=== PATIENT | female | born 1930 ===

== ENCOUNTER 2018-09-17 10:19 | Inpatient (IN) | payer MEDICARE ==
--- NOTE | 2018-09-17 10:43 | ED PDOC ---
Arrival/HPI - General Chief Complaint: Altered Mental Status Time Seen by Provider: 09/17/18 10:21 Historian: Spouse (), Family (daughter) - Critical Care Critical Care Minutes: 60 minutes Narrative Critical Care (Text): Patient critically ill, required frequent reassessments, complex decision making, discussion with multiple physicians. - History of Present Illness Narrative History of Present Illness (Text): 09/17/18 10:43 A 88 year old female, whose past medical history includes Alzheimer's, presents to the emergency department accompanied by family for altered mental status since earlier today. Per patient's family, patient was given ensure and fluids for the past 15 days and patient vomited twice. Per patient's daughter, patient was unresponsive to verbal stimuli earlier this morning and patient has not taken any medication today. ROS is limited due to patient's altered mental status. PMD: Dr. Jim Patterson Time/Duration: 4-6 hours (earlier today) Symptom Onset: Gradual Symptom Course: Unchanged Activities at Onset: Light Context: Home Past Medical History - Provider Review Nursing Documentation Reviewed: Yes - Infectious Disease Hx of Infectious Diseases: None - Tetanus Immunization Tetanus Immunization: Unknown - Cardiac Hx Pacemaker: No - Neurological Hx Alzheimer's Disease: Yes Hx Paralysis: No - Hematological/Oncological Hx Blood Transfusions: No Hx Blood Transfusion Reaction: No - Musculoskeletal/Rheumatological Hx Musculoskeletal Disorders: Yes - Gastrointestinal Hx Crohn's Disease: Yes - Psychiatric Hx Emotional Abuse: No Hx Physical Abuse: No Hx Substance Use: No - Surgical History Other/Comment: colon sx in 8 yrs ago - Anesthesia Hx Anesthesia: Yes Hx Anesthesia Reactions: No Hx Malignant Hyperthermia: No - Suicidal Assessment Feels Threatened In Home Enviroment: No Family/Social History - Physician Review Nursing Documentation Reviewed: Yes Family/Social History: No Known Family HX Smoking Status: Never Smoked Hx Alcohol Use: No Hx Substance Use: No Hx Substance Use Treatment: No Allergies/Home Meds Allergies/Adverse Reactions: Allergies No Known Allergies Allergy (Verified 09/17/18 10:28) Home Medications: Home Meds Medication Instructions Recorded Confirmed No Known Home Med 09/17/18 09/17/18 Review of Systems - Review of Systems Systems not reviewed;Unavailable: Altered Mental Status Physical Exam - Physical Exam Narrative Physical Exam (Text): 09/17/18 10:45 Constitutional: No acute distress. Head: Normocephalic. Atraumatic. Eyes: Left eye reactive to light. Right pupil deformity. ENT: Moist mucous membranes. Cardiovascular: Tachycardic. Chest: No tenderness. Respiratory: Clear to auscultation bilaterally. Tachypnic. 91 on room air. GI: Soft. Nontender. Nondistended. Musculoskeletal: No tenderness or swelling of extremities. Skin: No rash. Neurologic: Unresponsive to verbal stimuli. Grimaces to touch. Moving extremities spontaneously. Vital Signs Reviewed: Yes Vital Signs Temp Pulse Resp BP Pulse Ox 09/17/18 10:23 99.2 F 105 H 17 152/56 H 95 Temperature: Afebrile Blood Pressure: Hypertensive Pulse: Tachycardic Respiratory Rate: Tachypneic Appearance: Positive for: Ill-Appearing Pain Distress: None Mental Status: Positive for: Lethargic Finger Stick Blood Glucose: 128 Medical Decision Making ED Course and Treatment: 09/17/18 10:47 Impression: 88 year old female presenting to the emergency room for altered mental status. Plan: -- Type and screen -- VBG -- Head CT without contrast -- EKG -- Labs -- CBC -- COAGs -- Chest X-ray -- IV Fluids -- Blood culture -- Urine culture -- Urinalysis -- Reassess and disposition Prior Visits: Notes and results from previous visits were reviewed. Progress Notes: 09/17/18 10:47 EKG: Ordered, reviewed, and independently interpreted the EKG. Rate : 107 BPM Rhythm : Sinus Rhythm Interpretation : No ST-segment elevations or depressions, normal intervals. 09/17/18 11:34 Procedure: Chest X-ray Impression: No active disease. Dictator: Simon Redd MD Procedure: CT Head without contrast Impression: No acute hemorrhage. Dictator: David Pinzon MD UA shows UTI. Patient became hypotensive while in ED, 2 L NS given with improvement. Antibiotics empirically initiated. Discussed CODE STATUS with and daughter at bedside who state that patient would not have wanted these aggressive treatments and would want to in peace. They were agreeable to central line access if necessary. Dr. Jim Patterson accepts patient to his service. Dr. Mcrae accepts patient to ICU. 09/17/18 13:40 - Scribe Statement The provider has reviewed the documentation as recorded by the Scribmaninder Macias All medical record entries made by the Scribe were at my direction and personally dictated by me. I have reviewed the chart and agree that the record accurately reflects my personal performance of the history, physical exam, medical decision making, and the department course for this patient. I have also personally directed, reviewed, and agree with the discharge instructions and disposition. Disposition/Present on Arrival - Present on Arrival Any Indicators Present on Arrival: No History of DVT/PE: No History of Uncontrolled Diabetes: No Urinary Catheter: No History of Decub. Ulcer: No History Surgical Site Infection Following: None - Disposition Have Diagnosis and Disposition been Completed?: Yes Diagnosis: UTI (urinary tract infection), Septic shock Disposition: HOSPITALIZED Disposition Time: 13:00 Patient Plan: ICU Condition: CRITICAL
[2018-09-17] MEDS ORDERED: Sodium Chloride 0.9% 1,000 ML IV STA (10:50)
[2018-09-17 11:15] LABS: BASO # 0.04 K/mm3 (0.0-2.0); BASO % 0.2 % (0.0-3.0); EOS # 0.1 (0.0-0.7); EOS % 0.4 % (1.5-5.0); GRAN # 14.06 (1.4-6.5); GRAN % 77.4 % (50.0-68.0); HEMOGLOBIN 10.1 g/dL (12.0-16.0); LYMPH # 2.9 (1.2-3.4); LYMPH % 16.1 % (22.0-35.0); MEAN CELL VOLUME 94.3 fl (80.0-105.0); MEAN CORPUSCULAR HEMOGLOBIN 27.3 pg (25.0-35.0); MEAN CORPUSCULAR HGB CONC 28.9 g/dl (31.0-37.0); MEAN PLATELET VOLUME 10.1 fl (7.0-11.0); MONO # 1.1 (0.1-0.6); MONO % 5.9 % (1.0-6.0); RBC 3.7 10^6/uL (3.5-6.1); RED CELL DISTRIBUTION WIDTH 16.8 % (11.5-14.5); WHITE BLOOD COUNT 18.2 10^3/uL (4.5-11.0)
[2018-09-17 11:16] VITALS: BMI 21.2
[2018-09-17] MEDS ORDERED: Cefepime 1gm in NS 100ml 1 GM/100 ML BAG IVPB STA (11:18)
[2018-09-17 11:27] LABS: INR 1.23; PROTHROMBIN TIME 14.2 SECONDS (9.4-12.5)
--- NOTE | 2018-09-17 11:28 | RAD ---
Date of service: 09/17/2018 HISTORY: altered mental status, hypoxic COMPARISON: 02/08/2013 FINDINGS: LUNGS: No active pulmonary disease. PLEURA: No significant pleural effusion identified, no pneumothorax apparent. CARDIOVASCULAR: Aortic calcification and tortuosity. Normal cardiac size. No pulmonary vascular congestion. OSSEOUS STRUCTURES: No significant abnormalities. VISUALIZED UPPER ABDOMEN: Normal. OTHER FINDINGS: None. IMPRESSION: No active disease.
--- NOTE | 2018-09-17 11:30 | CT ---
Date of service: 09/17/2018 PROCEDURE: CT HEAD WITHOUT CONTRAST. HISTORY: altered mental status COMPARISON: None available. TECHNIQUE: Axial computed tomography images were obtained through the head/brain without intravenous contrast. Radiation dose: Total exam DLP = 652.67 mGy-cm. This CT exam was performed using one or more of the following dose reduction techniques: Automated exposure control, adjustment of the mA and/or kV according to patient size, and/or use of iterative reconstruction technique. FINDINGS: HEMORRHAGE: No intracranial hemorrhage. BRAIN: No mass effect or edema. Atrophy. VENTRICLES: Unremarkable. No hydrocephalus. CALVARIUM: Unremarkable. PARANASAL SINUSES: Unremarkable as visualized. No significant inflammatory changes. MASTOID AIR CELLS: Unremarkable as visualized. No inflammatory changes. OTHER FINDINGS: None. IMPRESSION: No acute hemorrhage.
[2018-09-17 11:38] LABS: TROPONIN I 0.04 ng/mL
[2018-09-17 11:42] LABS: ALB/GLOB RATIO 0.7 (1.1-1.8); ALBUMIN 2.9 g/dL (3.0-4.8); CALCIUM 9.6 mg/dL (8.4-10.5)
[2018-09-17 11:52] LABS: PARTIAL THROMBOPLASTIN TIME 20.2 Seconds (25.1-36.5)
[2018-09-17] MEDS ORDERED: Vancomycin 1gm in NS 250ml 1 GM/250 ML BAG IVPB STA (12:00)
[2018-09-17] MEDS ORDERED: Sodium Chloride 0.9% 2,000 ML IV STA (12:01)
[2018-09-17 12:05] LABS: VENOUS BLOOD GAS BASE EXCESS 2.8 mmol/L (0.0-2.0); VENOUS BLOOD GAS PO2 39 mm/Hg (30-55); VENOUS BLOOD PH 7.39 (7.32-7.43)
[2018-09-17 12:59] LABS: URINE APPEARANCE CLOUDY (CLEAR); URINE BILIRUBIN NEGATIVE (NEGATIVE); URINE BLOOD LARGE (NEGATIVE); URINE COLOR LIGHT RED (YELLOW); URINE GLUCOSE (UA) NEGATIVE (NEGATIVE); URINE LEUKOCYTE ESTERASE LARGE Leu/uL (NEGATIVE); URINE PROTEIN 30 mg/dL (<30 mg/dL)
[2018-09-17 13:02] LABS: URINE RBC TNTC /hpf (0-2); URINE WBC TNTC /hpf (0-6)
[2018-09-17 13:03] LABS: URINE BACTERIA MANY (NEG)
--- NOTE | 2018-09-17 13:44 | CP.PCM.CON ---
<New Clemons - Last Filed: 09/17/18 13:56> History of Present Illness - History of Present Illness History of Present Illness: New Clemons D.O. 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 Daughter states that patient has been declining over last 1-2 months, used to be ambulatory but now has been bed bound. Daughter became concerned when patient stopped wanting to eat and drink last few days and this morning the patient would not even say good morning which is why she became worried. Of note, daughter states that about 9 months ago they took her to the supervisor mechanic [facility] for vaginal bleeding and she was found to have an endometrial mass, however no further biopsy or surgery was pursued give her non-compliance and benefits vs risk that family reviewed with her physicians. Overall patient at this time is non-verbal and unable to provide any history or ROS. at bedside corroborates above details. PMH: as above PSH: right eye surgery SH: family denies EtOH, tobacco or illicits FH: noncontributory Meds: denied by family Allergies: NKA Review of Systems - Review of Systems Systems not reviewed;Unavailable: Dementia Past Patient History - Infectious Disease Hx of Infectious Diseases: None - Tetanus Immunizations Tetanus Immunization: Unknown - Past Social History Smoking Status: Never Smoked - CARDIAC Hx Pacemaker: No - NEUROLOGICAL Hx Alzheimer's Disease: Yes Hx Paralysis: No - HEMATOLOGICAL/ONCOLOGICAL Hx Blood Transfusions: No Hx Blood Transfusion Reaction: No - MUSCULOSKELETAL/RHEUMATOLOGICAL Hx Musculoskeletal Disorders: Yes - GASTROINTESTINAL Hx Crohn's Disease: Yes - PSYCHIATRIC Hx Emotional Abuse: No Hx Physical Abuse: No Hx Substance Use: No - SURGICAL HISTORY Other/Comment: colon sx in 8 yrs ago - ANESTHESIA Hx Anesthesia: Yes Hx Anesthesia Reactions: No Hx Malignant Hyperthermia: No Meds Allergies/Adverse Reactions: Allergies Allergy/AdvReac Type Severity Reaction Status Date / Time No Known Allergies Allergy Verified 09/17/18 10:28 - Medications Medications: Current Medications Sodium Chloride (Sodium Chloride 0.9%) 1,000 mls @ 100 mls/hr IV .Q10H STA Stop: 09/17/18 20:49 Last Admin: 09/17/18 12:05 Dose: Not Given Cefepime HCl (Maxipime 1gm) 1 gm in 100 mls @ 100 mls/hr IVPB Q24H BIRD; Protocol Vancomycin HCl (Vancomycin 1gm) 1 gm in 250 mls @ 167 mls/hr IVPB DAILY BIRD; Protocol Physical Exam - Constitutional Appears: No Acute Distress, Cachectic, Chronically Ill Additional comments: physical exam limited by patient unable to comply with some instructions - Head Exam Head Exam: ATRAUMATIC, NORMOCEPHALIC - Eye Exam Additional comments: right eye closed and blind 2/2 trauma years ago, left eye reactive to light, unable to follow commands for extraocular muscle examination - ENT Exam ENT Exam: Mucous Membranes Dry, Normal Oropharynx Additional comments: upper dentures, poor dentition - Neck Exam Neck exam: Positive for: Normal Inspection. Negative for: Lymphadenopathy - Respiratory Exam Respiratory Exam: Clear to Auscultation Bilateral. absent: Rales, Rhonchi, Wheezes - Cardiovascular Exam Cardiovascular Exam: Tachycardia, +S1, +S2. absent: Gallop, Rubs - GI/Abdominal Exam GI & Abdominal Exam: Normal Bowel Sounds, Soft. absent: Distended, Tenderness - Extremities Exam Extremities exam: Positive for: normal capillary refill, pedal pulses present. Negative for: calf tenderness, joint swelling, pedal edema Additional comments: left heel stage 2 pressure ulcer, clean based, dressing in place - Back Exam Back exam: absent: rash noted - Neurological Exam Additional comments: awake, not alert, nonverbal, moves all extremities spontaneously, left eye reactive to light, did follow very simple command in [place] ("open your mouth") - Skin Skin Exam: Dry, Warm Additional comments: bilateral stage 2 posterior sacral iliac spine/ischial ulcers Results - Vital Signs Recent Vital Signs: Last Vital Signs Temp 96.9 F L 09/17/18 12:43 Pulse 97 H 09/17/18 13:20 Resp 29 H 09/17/18 13:20 BP 89/50 L 09/17/18 13:20 Pulse Ox 99 09/17/18 13:20 - Labs Result Diagrams: 09/17/18 10:57 09/17/18 10:57 Labs: Laboratory Results - last 24 hr 11/16/18 11/16/18 11/16/18 10:57 10:57 10:57 WBC 18.2 H RBC 3.70 Hgb 10.1 L Hct 34.9 L MCV 94.3 MCH 27.3 MCHC 28.9 L RDW 16.8 H Plt Count 269 MPV 10.1 Gran % 77.4 H Lymph % (Auto) 16.1 L [place] % (Auto) 5.9 Eos % (Auto) 0.4 L Baso % (Auto) 0.2 Gran # 14.06 H Lymph # (Auto) 2.9 [place] # (Auto) 1.1 H Eos # (Auto) 0.1 Baso # (Auto) 0.04 PT 14.2 H INR 1.23 APTT 20.2 L pO2 VBG pH VBG pCO2 VBG HCO3 VBG Total CO2 VBG O2 Sat (Calc) VBG Base Excess VBG Potassium Glucose Lactate FiO2 Sodium 159 H* Potassium 3.7 Chloride 120 H Carbon Dioxide 30 Anion Gap 12 BUN 109 H Creatinine 1.3 H Est GFR ( Amer) 47 Est GFR (Non-Af Amer) 39 Random Glucose 146 H Calcium 9.6 Phosphorus 5.0 H Magnesium 4.0 H Total Bilirubin 0.8 AST 48 H ALT 66 H Alkaline Phosphatase 201 H Total Creatine Kinase 100 Troponin I 0.04 NT-Pro-B Natriuret Pep 1880 H Total Protein 6.9 Albumin 2.9 L Globulin 4.0 Albumin/Globulin Ratio 0.7 L Lipase 282 Venous Blood Potassium Urine Color Urine Appearance Urine pH Ur Specific [place] Urine Protein Urine Glucose (UA) Urine Ketones Urine Blood Urine Nitrate Urine Bilirubin Urine Urobilinogen Ur Leukocyte Esterase Urine RBC Urine WBC Ur Epithelial Cells Urine Bacteria Blood Type Antibody Screen BBK History Checked 09/17/18 09/17/18 09/17/18 10:57 11:51 12:50 WBC RBC Hgb Hct MCV MCH MCHC RDW Plt Count MPV Gran % Lymph % (Auto) [place] % (Auto) Eos % (Auto) Baso % (Auto) Gran # Lymph # (Auto) [place] # (Auto) Eos # (Auto) Baso # (Auto) PT INR APTT pO2 39 VBG pH 7.39 VBG pCO2 47.0 VBG HCO3 28.5 H VBG Total CO2 29.9 H VBG O2 Sat (Calc) 70.8 H VBG Base Excess 2.8 H VBG Potassium 3.9 Glucose 143 H Lactate 2.9 H FiO2 21.0 Sodium 161.0 H* Potassium Chloride 123.0 H Carbon Dioxide Anion Gap BUN Creatinine Est GFR ( Amer) Est GFR (Non-Af Amer) Random Glucose Calcium Phosphorus Magnesium Total Bilirubin AST ALT Alkaline Phosphatase Total Creatine Kinase Troponin I NT-Pro-B Natriuret Pep Total Protein Albumin Globulin Albumin/Globulin Ratio Lipase Venous Blood Potassium 3.9 Urine Color Light red Urine Appearance Cloudy Urine pH 8.0 Ur Specific [place] 1.015 Urine Protein 30 H Urine Glucose (UA) Negative Urine Ketones Negative Urine Blood Large H Urine Nitrate Positive H Urine Bilirubin Negative Urine Urobilinogen 1.0 H Ur Leukocyte Esterase Large H Urine RBC Tntc Urine WBC Tntc Ur Epithelial Cells 4 - 5 Urine Bacteria Many Blood Type O POSITIVE Antibody Screen Negative BBK History Checked No verified bt Assessment & Plan - Assessment and Plan (Free Text) Assessment: 88 year old female with a PMH of Alzheimer's disease, 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, heel and ischial pressure ulcers, and endometrial mass who is found to have sepsis likely from urinary source Plan: Neurologic Very minimally verbal at baseline due to underlying dementia however overall nonfocal Optimize circadian rhythm Monitor mental status closely Cardiovascular Hypotensive and tachycardic, mixture of sepsis and dehydration S/p 3L NS with some improvement Repeat CBC Maintain MAP >65 Will monitor BP closely Pulmonary Satting well with NC Cont PRN NC @ 2L O2 Aspiration precautions GI NPO for now given clinical condition No indication for GI ppx at this time Nephro/Electrolytes Hypernatremia likely 2/2 severe dehydration S/p 3L NS Given borderline low normal potassium will continue hydration with NS +60mEq KCl @ 75ml/hr Repeat CMP this afternoon Purewick from home had some blood likely vaginal source, will place hsieh for now and then downgrade when clinically improved ID Sepsis with 3/4, hypothermic, leukocytosis and tachycardia, and +lactate Likely urinary source given UA Urine and blood cultures drawn Started on cefepime and vancomycin D1 Repeat VBG in 3 hours Wounds appear clean and not infected, wound care consulted, turn q2h S/p fluid bolus Heme Leukocytosis 2/2 infection Minor vaginal bleeding but does not appear to be significant to be causing hypotension vs sepsis as above Repeat CBC later in the afternoon and tomorrow AM GI/DVT ppx: GI not indicated/SCDs Dispo: poor functional state with now sepsis and possible septic shock, will admit and monitor in ICU at this time. DNR/DNI discussion by ER attending reveals family does not want aggressive measures. Will obtain palliative care consult to discuss goals of care, although they are amenable to central line and pressors if necessary. Patient was seen and examined at bedside and case was discussed at length with attending literacy specialist Dr. Mcrae - Date & Time Date: 09/17/18 Time: 13:10 <Sheridan Mcrae - Last Filed: 09/17/18 14:28> Meds - Medications Medications: Current Medications Sodium Chloride (Sodium Chloride 0.9%) 1,000 mls @ 100 mls/hr IV .Q10H STA Stop: 09/17/18 20:49 Last Admin: 09/17/18 12:05 Dose: Not Given Cefepime HCl (Maxipime 1gm) 1 gm in 100 mls @ 100 mls/hr IVPB Q24H BIRD; Protocol Vancomycin HCl (Vancomycin 1gm) 1 gm in 250 mls @ 167 mls/hr IVPB DAILY BIRD; Protocol Potassium Chloride 60 meq/ (Sodium Chloride) 1,030 mls @ 75 mls/hr IV .[id number] BIRD Results - Vital Signs Recent Vital Signs: Last Vital Signs Temp 96.9 F L 09/17/18 13:46 Pulse 99 H 09/17/18 13:46 Resp 22 09/17/18 13:46 BP 89/50 L 09/17/18 13:20 Pulse Ox 98 09/17/18 13:46 - Labs Result Diagrams: 09/17/18 10:57 09/17/18 10:57 Labs: Laboratory Results - last 24 hr 09/17/18 09/17/18 09/17/18 10:57 10:57 10:57 WBC 18.2 H RBC 3.70 Hgb 10.1 L Hct 34.9 L MCV 94.3 MCH 27.3 MCHC 28.9 L RDW 16.8 H Plt Count 269 MPV 10.1 Gran % 77.4 H Lymph % (Auto) 16.1 L [place] % (Auto) 5.9 Eos % (Auto) 0.4 L Baso % (Auto) 0.2 Gran # 14.06 H Lymph # (Auto) 2.9 [place] # (Auto) 1.1 H Eos # (Auto) 0.1 Baso # (Auto) 0.04 PT 14.2 H INR 1.23 APTT 20.2 L pO2 VBG pH VBG pCO2 VBG HCO3 VBG Total CO2 VBG O2 Sat (Calc) VBG Base Excess VBG Potassium Glucose Lactate FiO2 Sodium 159 H* Potassium 3.7 Chloride 120 H Carbon Dioxide 30 Anion Gap 12 BUN 109 H Creatinine 1.3 H Est GFR ( Amer) 47 Est GFR (Non-Af Amer) 39 Random Glucose 146 H Calcium 9.6 Phosphorus 5.0 H Magnesium 4.0 H Total Bilirubin 0.8 AST 48 H ALT 66 H Alkaline Phosphatase 201 H Total Creatine Kinase 100 Troponin I 0.04 NT-Pro-B Natriuret Pep 1880 H Total Protein 6.9 Albumin 2.9 L Globulin 4.0 Albumin/Globulin Ratio 0.7 L Lipase 282 Venous Blood Potassium Urine Color Urine Appearance Urine pH Ur Specific [place] Urine Protein Urine Glucose (UA) Urine Ketones Urine Blood Urine Nitrate Urine Bilirubin Urine Urobilinogen Ur Leukocyte Esterase Urine RBC Urine WBC Ur Epithelial Cells Urine Bacteria Blood Type Antibody Screen BBK History Checked 09/17/18 09/17/18 09/17/18 10:57 11:51 12:50 WBC RBC Hgb Hct MCV MCH MCHC RDW Plt Count MPV Gran % Lymph % (Auto) [place] % (Auto) Eos % (Auto) Baso % (Auto) Gran # Lymph # (Auto) [place] # (Auto) Eos # (Auto) Baso # (Auto) PT INR APTT pO2 39 VBG pH 7.39 VBG pCO2 47.0 VBG HCO3 28.5 H VBG Total CO2 29.9 H VBG O2 Sat (Calc) 70.8 H VBG Base Excess 2.8 H VBG Potassium 3.9 Glucose 143 H Lactate 2.9 H FiO2 21.0 Sodium 161.0 H* Potassium Chloride 123.0 H Carbon Dioxide Anion Gap BUN Creatinine Est GFR ( Amer) Est GFR (Non-Af Amer) Random Glucose Calcium Phosphorus Magnesium Total Bilirubin AST ALT Alkaline Phosphatase Total Creatine Kinase Troponin I NT-Pro-B Natriuret Pep Total Protein Albumin Globulin Albumin/Globulin Ratio Lipase Venous Blood Potassium 3.9 Urine Color Light red Urine Appearance Cloudy Urine pH 8.0 Ur Specific [place] 1.015 Urine Protein 30 H Urine Glucose (UA) Negative Urine Ketones Negative Urine Blood Large H Urine Nitrate Positive H Urine Bilirubin Negative Urine Urobilinogen 1.0 H Ur Leukocyte Esterase Large H Urine RBC Tntc Urine WBC Tntc Ur Epithelial Cells 4 - 5 Urine Bacteria Many Blood Type O POSITIVE Antibody Screen Negative BBK History Checked No verified bt Addendum Addendum: 09/17/18 14:28 ICU Attending Addendum Patient seen and examined. Case reviewed on round with housestaff. 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 Source is likely urine however there is a component of dehydration given her elevated sodium and bicarb Will give at least 30cc/kg of IVF if sodium incr will change to 1/2NS Ok to give addition 1 L on top for cover free water deificit repeat labs including chem and lac empiric abx with vanc/cefepime Pal care consult for goal of care DNR/DNI Rest of care as above Sheridan Mcrae MD Pulmonary Critical Care and Sleep Medicine CC Time: 30mins
[2018-09-17 15:53] LABS: BASO # 0.02 K/mm3 (0.0-2.0); BASO % 0.1 % (0.0-3.0); EOS % 0.1 % (1.5-5.0); GRAN # 14.37 (1.4-6.5); GRAN % 83.5 % (50.0-68.0); HEMOGLOBIN 9.5 g/dL (12.0-16.0); LYMPH # 1.5 (1.2-3.4); LYMPH % 8.7 % (22.0-35.0); MEAN CELL VOLUME 94.7 fl (80.0-105.0); MEAN CORPUSCULAR HEMOGLOBIN 26.7 pg (25.0-35.0); MEAN CORPUSCULAR HGB CONC 28.2 g/dl (31.0-37.0); MEAN PLATELET VOLUME 9.5 fl (7.0-11.0); MONO # 1.3 (0.1-0.6); MONO % 7.6 % (1.0-6.0); RBC 3.56 10^6/uL (3.5-6.1); RED CELL DISTRIBUTION WIDTH 16.7 % (11.5-14.5); WHITE BLOOD COUNT 17.2 10^3/uL (4.5-11.0)
[2018-09-17 16:02] LABS: VENOUS BLOOD GAS PO2 30 mm/Hg (30-55); VENOUS BLOOD PH 7.36 (7.32-7.43)
[2018-09-17 16:12] LABS: ALB/GLOB RATIO 0.7 (1.1-1.8); ALBUMIN 2.7 g/dL (3.0-4.8); ALT/SGPT 61 U/L (7-56); AST/SGOT 45 U/L (14-36); BLOOD UREA NITROGEN 94 mg/dL (7-21); CALCIUM 8.7 mg/dL (8.4-10.5); GFR NON-AFRICAN AMERICAN 52
[2018-09-17] MEDS ORDERED: Dextrose 5%/0.45% NS 1,000 ML IV SCH (16:45)
--- NOTE | 2018-09-17 16:47 | PCM.SEPTIC ---
Sepsis Progress Note - Reassessment Type Date of Evaluation: 09/17/18 Time of Evaluation: 04:30 Reassessment Type: Non-invasive reassessment - Non Invasive Reassessment Were the most recent vital sign reviewed: Yes Vital Sign (Latest): Temp Pulse Resp BP Pulse Ox 96.9 F L 99 H 22 89/50 L 98 09/17/18 13:46 09/17/18 13:46 09/17/18 13:46 09/17/18 13:20 09/17/18 13:46 Cardiovascular: Yes: Regular Rate, Rhythm. No: Chest Non Tender, Edema, JVD Respiratory: Yes: Normal Breath Sounds. No: Crackles, Rales, Rhonchi, Stridor, Wheezing Capillary Refill: Normal (Less than 2 sec) Pulses: Normal Radial, Normal Dorsalis Pedis, Normal Posterior Tibialis Skin: Normal Color - Invasive Reassessment (complete 2 of 4) Was a Central Venous Pressure Measurement obtained within 6 Hours after the presentation of septic shock: No Was a central venous oxygen measurement obtained within 6 hours after the presentation of septic shock: No Was a bedside cardiovascular ultrasound performed within 6 hours after the presentation of septic shock: Yes Type performed: Echocardiogram Was a passive leg raise performed or was a fluid challenge performed within 6 hrs of the initial fluid bolus: Yes Passive Leg Raise Result: Not Applicable Fluid Challenge performed: Yes
[2018-09-17] MEDS ORDERED: Sodium Chloride 0.9% 500 ML IV STA ×2 (19:32→20:43)
--- NOTE | 2018-09-17 19:45 | CARD ---
APPROVED REPORT Date of service: 09/17/2018 EKG Measurement Heart [id number] <Conclusion> Sinus tachycardia with premature atrial complexes Otherwise normal ECG
[2018-09-17] MEDS ORDERED: NOREPINEPHRINE BIT/0.9 % NACL 4 MG/250 ML BAG IV PRN (22:42)
[2018-09-18 05:21] LABS: BASO # 0.02 K/mm3 (0.0-2.0); BASO % 0.1 % (0.0-3.0); EOS # 0.2 (0.0-0.7); EOS % 1.1 % (1.5-5.0); GRAN # 11.92 (1.4-6.5); GRAN % 81.5 % (50.0-68.0); HEMOGLOBIN 8.2 g/dL (12.0-16.0); LYMPH # 1.6 (1.2-3.4); LYMPH % 10.9 % (22.0-35.0); MEAN CORPUSCULAR HEMOGLOBIN 27.1 pg (25.0-35.0); MEAN CORPUSCULAR HGB CONC 28.2 g/dl (31.0-37.0); MEAN PLATELET VOLUME 9.4 fl (7.0-11.0); MONO # 0.9 (0.1-0.6); MONO % 6.4 % (1.0-6.0); RBC 3.03 10^6/uL (3.5-6.1); RED CELL DISTRIBUTION WIDTH 16.8 % (11.5-14.5); WHITE BLOOD COUNT 14.6 10^3/uL (4.5-11.0)
[2018-09-18 06:24] LABS: ALB/GLOB RATIO 0.7 (1.1-1.8); ALBUMIN 2.3 g/dL (3.0-4.8); ALT/SGPT 47 U/L (7-56); AST/SGOT 35 U/L (14-36); BLOOD UREA NITROGEN 68 mg/dL (7-21); CALCIUM 8.4 mg/dL (8.4-10.5); GFR NON-AFRICAN AMERICAN > 60
[2018-09-18] MEDS ORDERED: Dextrose 5%/0.45% NS 1,000 ML IV SCH (09:30)
[2018-09-18] MEDS: Cefepime 1gm in NS 100ml 1 GM/100 ML BAG IVPB SCH (09:33)
[2018-09-18] MEDS: Vancomycin 1gm in NS 250ml 1 GM/250 ML BAG IVPB SCH (09:33)
--- NOTE | 2018-09-18 09:49 | CP.CCUPN ---
<Luis Alfredo Jacobs - Last Filed: 09/18/18 11:53> CCU Subjective - Physician Review Subjective (Free Text): 09/18/18 09:46 Patient seen and examined at bedside. As per overnight staff patient was not responsive. Patient initially brought into hospital due to change in mental status, as per daughter patient wasn't saying good morning. I saw and examined patient this morning, patient was responsive when her name was called. She then replied asking " why am I here?" Patient's family then came and patient is able to answer questions and responds to daughter. ROS still limited. CCU Objective - Vital Signs / Intake & Output Vital Signs (Last 4 hours): Vital Signs Temp Pulse Resp BP Pulse Ox 09/18/18 08:42 80 23 09/18/18 08:41 73 09/18/18 08:40 80 18 82 L 09/18/18 08:35 78 15 09/18/18 08:34 80 36 H 09/18/18 08:33 77 28 H 09/18/18 08:32 82 23 09/18/18 08:31 76 28 H 18 08:30 77 19 09/18/18 08:29 71 31 H 09/18/18 08:28 81 32 H 09/18/18 08:27 78 22 09/18/18 08:26 76 44 H 18 08:25 77 09/18/18 08:24 76 26 H 09/18/18 08:23 76 23 09/18/18 08:22 84 20 09/18/18 08:21 78 40 H 09/18/18 08:20 78 09/18/18 08:19 81 25 H 18 08:18 81 21 09/18/18 08:17 79 24 09/18/18 08:16 78 33 H 09/18/18 08:15 83 15 09/18/18 08:14 76 09/18/18 08:13 79 36 H 18 08:12 81 17 18 08:11 80 22 09/18/18 08:10 81 18 09/18/18 08:09 72 25 H 09/18/18 08:08 79 22 09/18/18 08:07 81 23 09/18/18 08:06 81 16 09/18/18 08:05 80 30 H 09/18/18 08:04 79 26 H 09/18/18 08:03 87 24 09/18/18 08:02 76 11 L 09/18/18 08:01 74 24 09/18/18 08:00 97.1 F L 92/47 L 09/18/18 07:59 78 38 H 69 L 09/18/18 07:50 79 24 83 L 09/18/18 07:44 84 15 09/18/18 07:43 80 31 H 09/18/18 07:42 78 25 H 09/18/18 07:41 83 31 H 09/18/18 07:40 78 44 H 09/18/18 07:39 81 30 H 09/18/18 07:38 76 32 H 09/18/18 07:37 76 30 H 09/18/18 07:36 84 19 09/18/18 07:00 75 09/18/18 06:00 77 Intake and Output (Last 8hrs): Intake & Output 09/17/18 09/18/18 09/18/18 22:59 06:59 14:59 Intake Total 1610 1050 Output Total 100 350 Balance 1510 700 Weight 52.617 kg 45.904 kg Intake: IV 1610 1050 Left Forearm 1600 900 Right Forearm 10 150 Oral 0 Output: Urine 100 350 Urethral (Adams) 100 350 Other: # Bowel Movements 1 1 - Physical Exam Head: Positive for: Atraumatic, Normocephalic Extroacular Muscles: Negative for: EOMI Conjunctiva: Positive for: Normal Mouth: Positive for: Moist Mucous Membranes Respiratory/Chest: Positive for: Clear to Auscultation. Negative for: Wheezes, Rales, Rhonchi Cardiovascular: Positive for: Regular Rate and Rhythm, Normal S1, S2 Abdomen: Negative for: Tenderness Upper Extremity: Positive for: Normal Inspection Lower Extremity: Positive for: Normal Inspection Neurological: Negative for: Speech Normal Skin: Positive for: Warm, Normal Color Psychiatric: Positive for: Alert. Negative for: Oriented x 3 - Medications Active Medications: Active Medications Generic Name Dose Route Start Last Admin Trade Name Freq PRN Reason Stop Dose Admin Cefepime HCl 1 gm in 100 mls @ 100 mls/hr 09/18/18 10:00 09/18/18 09:33 Maxipime 1gm IVPB 100 mls/hr Q24H BIRD Administration Protocol Vancomycin HCl 1 gm in 250 mls @ 167 mls/hr 09/18/18 10:00 09/18/18 09:33 Vancomycin 1gm IVPB 167 mls/hr DAILY BIRD Administration Protocol Potassium Chloride 60 meq/ 1,030 mls @ 75 mls/hr 09/17/18 16:45 09/17/18 16:50 Sodium Chloride IV 75 mls/hr .[id number] BIRD Administration NOREPINEPHRINE BIT/0.9 % NACL 4 mg in 250 mls @ 15 mls/hr 09/17/18 22:42 Levophed 4 Mg/ 250 Ml Ns Premixed IV .[id number] PRN TITRATE PER MD ORDER Protocol 4 MCG/MIN - Patient Studies Lab Studies: Lab Studies 09/18/18 09/18/18 09/17/18 Range/Units 05:00 05:00 15:53 WBC 14.6 H (4.5-11.0) 10^3/uL RBC 3.03 L (3.5-6.1) 10^6/uL Hgb 8.2 L (12.0-16.0) g/dL Hct 29.1 L (36.0-48.0) % MCV 96.0 (80.0-105.0) fl MCH 27.1 (25.0-35.0) pg MCHC 28.2 L (31.0-37.0) g/dl RDW 16.8 H (11.5-14.5) % Plt Count 149 (120.0-450.0) 10^3/uL MPV 9.4 (7.0-11.0) fl Gran % 81.5 H (50.0-68.0) % Lymph % (Auto) 10.9 L (22.0-35.0) % [place] % (Auto) 6.4 H (1.0-6.0) % Eos % (Auto) 1.1 L (1.5-5.0) % Baso % (Auto) 0.1 (0.0-3.0) % Gran # 11.92 H (1.4-6.5) Lymph # (Auto) 1.6 (1.2-3.4) [place] # (Auto) 0.9 H (0.1-0.6) Eos # (Auto) 0.2 (0.0-0.7) Baso # (Auto) 0.02 (0.0-2.0) K/mm3 PT (9.4-12.5) SECONDS INR APTT (25.1-36.5) Seconds pO2 (30-55) mm/Hg VBG pH (7.32-7.43) VBG pCO2 (40-60) VBG HCO3 (21-28) mmol/l VBG Total CO2 (22-28) mmol.L VBG O2 Sat (Calc) (40-65) % VBG Base Excess (0.0-2.0) mmol/L VBG Potassium (3.6-5.2) mmol/L Glucose (65-105) mg/dl Lactate (0.7-2.1) mmol/L FiO2 % Sodium 160 H* 160 H* (132-148) mmol/L Potassium 4.5 3.1 L (3.6-5.0) mmol/L Chloride 133 H 126 H (98-107) mmol/L Carbon Dioxide 24 26 (21-33) mmol/L Anion Gap 7 L 11 (10-20) BUN 68 H 94 H (7-21) mg/dL Creatinine 0.8 1.0 (0.7-1.2) mg/dl Est GFR ( Amer) > 60 > 60 Est GFR (Non-Af Amer) > 60 52 Random Glucose 103 155 H (70-110) mg/dL Calcium 8.4 8.7 (8.4-10.5) mg/dL Phosphorus 3.3 4.1 (2.5-4.5) mg/dL Magnesium 3.0 H 3.5 H (1.7-2.2) mg/dL Total Bilirubin 0.7 0.7 (0.2-1.3) mg/dL AST 35 45 H (14-36) U/L ALT 47 61 H (7-56) U/L Alkaline Phosphatase 132 H D 171 H (38-126) U/L Total Creatine Kinase (35-230) U/L Troponin I ng/mL NT-Pro-B Natriuret Pep (0-450) pg/mL Total Protein 5.6 L 6.5 (5.8-8.3) g/dL Albumin 2.3 L 2.7 L (3.0-4.8) g/dL Globulin 3.3 3.8 gm/dL Albumin/Globulin Ratio 0.7 L 0.7 L (1.1-1.8) Lipase (23-300) U/L Venous Blood Potassium (3.6-5.2) mmol/L Urine Color (YELLOW) Urine Appearance (CLEAR) Urine pH (4.7-8.0) Ur Specific [place] (1.005-1.035) Urine Protein (<30 mg/dL) mg/dL Urine Glucose (UA) (NEGATIVE) mg/dL Urine Ketones (NEGATIVE) mg/dL Urine Blood (NEGATIVE) Urine Nitrate (NEGATIVE) Urine Bilirubin (NEGATIVE) Urine Urobilinogen (<1 E.U./dL) E.U./dL Ur Leukocyte Esterase (NEGATIVE) Jay/uL Urine RBC (0-2) /hpf Urine WBC (0-6) /hpf Ur Epithelial Cells (0-5) /hpf Urine Bacteria (NEG) Blood Type Blood Type Confirm Antibody Screen BBK History Checked 09/17/18 09/17/18 09/17/18 Range/Units 15:53 15:53 15:53 WBC 17.2 H (4.5-11.0) 10^3/uL RBC 3.56 (3.5-6.1) 10^6/uL Hgb 9.5 L (12.0-16.0) g/dL Hct 33.7 L (36.0-48.0) % MCV 94.7 (80.0-105.0) fl MCH 26.7 (25.0-35.0) pg MCHC 28.2 L (31.0-37.0) g/dl RDW 16.7 H (11.5-14.5) % Plt Count 216 (120.0-450.0) 10^3/uL MPV 9.5 (7.0-11.0) fl Gran % 83.5 H (50.0-68.0) % Lymph % (Auto) 8.7 L (22.0-35.0) % [place] % (Auto) 7.6 H (1.0-6.0) % Eos % (Auto) 0.1 L (1.5-5.0) % Baso % (Auto) 0.1 (0.0-3.0) % Gran # 14.37 H (1.4-6.5) Lymph # (Auto) 1.5 (1.2-3.4) [place] # (Auto) 1.3 H (0.1-0.6) Eos # (Auto) 0.0 (0.0-0.7) Baso # (Auto) 0.02 (0.0-2.0) K/mm3 PT (9.4-12.5) SECONDS INR APTT (25.1-36.5) Seconds pO2 30 (30-55) mm/Hg VBG pH 7.36 (7.32-7.43) VBG pCO2 48.0 (40-60) VBG HCO3 27.1 (21-28) mmol/l VBG Total CO2 28.6 H (22-28) mmol.L VBG O2 Sat (Calc) 49.6 (40-65) % VBG Base Excess 1.0 (0.0-2.0) mmol/L VBG Potassium 3.0 L (3.6-5.2) mmol/L Glucose 161 H (65-105) mg/dl Lactate 2.9 H (0.7-2.1) mmol/L FiO2 21.0 % Sodium 163.0 H* (132-148) mmol/L Potassium (3.6-5.0) mmol/L Chloride 127.0 H (98-107) mmol/L Carbon Dioxide (21-33) mmol/L Anion Gap (10-20) BUN (7-21) mg/dL Creatinine (0.7-1.2) mg/dl Est GFR ( Amer) Est GFR (Non-Af Amer) Random Glucose (70-110) mg/dL Calcium (8.4-10.5) mg/dL Phosphorus (2.5-4.5) mg/dL Magnesium (1.7-2.2) mg/dL Total Bilirubin (0.2-1.3) mg/dL AST (14-36) U/L ALT (7-56) U/L Alkaline Phosphatase (38-126) U/L Total Creatine Kinase (35-230) U/L Troponin I ng/mL NT-Pro-B Natriuret Pep (0-450) pg/mL Total Protein (5.8-8.3) g/dL Albumin (3.0-4.8) g/dL Globulin gm/dL Albumin/Globulin Ratio (1.1-1.8) Lipase (23-300) U/L Venous Blood Potassium 3.0 L (3.6-5.2) mmol/L Urine Color (YELLOW) Urine Appearance (CLEAR) Urine pH (4.7-8.0) Ur Specific [place] (1.005-1.035) Urine Protein (<30 mg/dL) mg/dL Urine Glucose (UA) (NEGATIVE) mg/dL Urine Ketones (NEGATIVE) mg/dL Urine Blood (NEGATIVE) Urine Nitrate (NEGATIVE) Urine Bilirubin (NEGATIVE) Urine Urobilinogen (<1 E.U./dL) E.U./dL Ur Leukocyte Esterase (NEGATIVE) Jay/uL Urine RBC (0-2) /hpf Urine WBC (0-6) /hpf Ur Epithelial Cells (0-5) /hpf Urine Bacteria (NEG) Blood Type Blood Type Confirm O POSITIVE Antibody Screen BBK History Checked 09/17/18 09/17/18 09/17/18 Range/Units 12:50 11:51 10:57 WBC (4.5-11.0) 10^3/uL RBC (3.5-6.1) 10^6/uL Hgb (12.0-16.0) g/dL Hct (36.0-48.0) % MCV (80.0-105.0) fl MCH (25.0-35.0) pg MCHC (31.0-37.0) g/dl RDW (11.5-14.5) % Plt Count (120.0-450.0) 10^3/uL MPV (7.0-11.0) fl Gran % (50.0-68.0) % Lymph % (Auto) (22.0-35.0) % [place] % (Auto) (1.0-6.0) % Eos % (Auto) (1.5-5.0) % Baso % (Auto) (0.0-3.0) % Gran # (1.4-6.5) Lymph # (Auto) (1.2-3.4) [place] # (Auto) (0.1-0.6) Eos # (Auto) (0.0-0.7) Baso # (Auto) (0.0-2.0) K/mm3 PT (9.4-12.5) SECONDS INR APTT (25.1-36.5) Seconds pO2 39 (30-55) mm/Hg VBG pH 7.39 (7.32-7.43) VBG pCO2 47.0 (40-60) VBG HCO3 28.5 H (21-28) mmol/l VBG Total CO2 29.9 H (22-28) mmol.L VBG O2 Sat (Calc) 70.8 H (40-65) % VBG Base Excess 2.8 H (0.0-2.0) mmol/L VBG Potassium 3.9 (3.6-5.2) mmol/L Glucose 143 H (65-105) mg/dl Lactate 2.9 H (0.7-2.1) mmol/L FiO2 21.0 % Sodium 161.0 H* (132-148) mmol/L Potassium (3.6-5.0) mmol/L Chloride 123.0 H (98-107) mmol/L Carbon Dioxide (21-33) mmol/L Anion Gap (10-20) BUN (7-21) mg/dL Creatinine (0.7-1.2) mg/dl Est GFR ( Amer) Est GFR (Non-Af Amer) Random Glucose (70-110) mg/dL Calcium (8.4-10.5) mg/dL Phosphorus (2.5-4.5) mg/dL Magnesium (1.7-2.2) mg/dL Total Bilirubin (0.2-1.3) mg/dL AST (14-36) U/L ALT (7-56) U/L Alkaline Phosphatase (38-126) U/L Total Creatine Kinase (35-230) U/L Troponin I ng/mL NT-Pro-B Natriuret Pep (0-450) pg/mL Total Protein (5.8-8.3) g/dL Albumin (3.0-4.8) g/dL Globulin gm/dL Albumin/Globulin Ratio (1.1-1.8) Lipase (23-300) U/L Venous Blood Potassium 3.9 (3.6-5.2) mmol/L Urine Color Light red (YELLOW) Urine Appearance Cloudy (CLEAR) Urine pH 8.0 (4.7-8.0) Ur Specific [place] 1.015 (1.005-1.035) Urine Protein 30 H (<30 mg/dL) mg/dL Urine Glucose (UA) Negative (NEGATIVE) mg/dL Urine Ketones Negative (NEGATIVE) mg/dL Urine Blood Large H (NEGATIVE) Urine Nitrate Positive H (NEGATIVE) Urine Bilirubin Negative (NEGATIVE) Urine Urobilinogen 1.0 H (<1 E.U./dL) E.U./dL Ur Leukocyte Esterase Large H (NEGATIVE) Jay/uL Urine RBC Tntc (0-2) /hpf Urine WBC Tntc (0-6) /hpf Ur Epithelial Cells 4 - 5 (0-5) /hpf Urine Bacteria Many (NEG) Blood Type O POSITIVE Blood Type Confirm Antibody Screen Negative BBK History Checked No verified bt 09/17/18 09/17/18 09/17/18 Range/Units 10:57 10:57 10:57 WBC 18.2 H (4.5-11.0) 10^3/uL RBC 3.70 (3.5-6.1) 10^6/uL Hgb 10.1 L (12.0-16.0) g/dL Hct 34.9 L (36.0-48.0) % MCV 94.3 (80.0-105.0) fl MCH 27.3 (25.0-35.0) pg MCHC 28.9 L (31.0-37.0) g/dl RDW 16.8 H (11.5-14.5) % Plt Count 269 (120.0-450.0) 10^3/uL MPV 10.1 (7.0-11.0) fl Gran % 77.4 H (50.0-68.0) % Lymph % (Auto) 16.1 L (22.0-35.0) % [place] % (Auto) 5.9 (1.0-6.0) % Eos % (Auto) 0.4 L (1.5-5.0) % Baso % (Auto) 0.2 (0.0-3.0) % Gran # 14.06 H (1.4-6.5) Lymph # (Auto) 2.9 (1.2-3.4) [place] # (Auto) 1.1 H (0.1-0.6) Eos # (Auto) 0.1 (0.0-0.7) Baso # (Auto) 0.04 (0.0-2.0) K/mm3 PT 14.2 H (9.4-12.5) SECONDS INR 1.23 APTT 20.2 L (25.1-36.5) Seconds pO2 (30-55) mm/Hg VBG pH (7.32-7.43) VBG pCO2 (40-60) VBG HCO3 (21-28) mmol/l VBG Total CO2 (22-28) mmol.L VBG O2 Sat (Calc) (40-65) % VBG Base Excess (0.0-2.0) mmol/L VBG Potassium (3.6-5.2) mmol/L Glucose (65-105) mg/dl Lactate (0.7-2.1) mmol/L FiO2 % Sodium 159 H* (132-148) mmol/L Potassium 3.7 (3.6-5.0) mmol/L Chloride 120 H (98-107) mmol/L Carbon Dioxide 30 (21-33) mmol/L Anion Gap 12 (10-20) BUN 109 H (7-21) mg/dL Creatinine 1.3 H (0.7-1.2) mg/dl Est GFR ( Amer) 47 Est GFR (Non-Af Amer) 39 Random Glucose 146 H (70-110) mg/dL Calcium 9.6 (8.4-10.5) mg/dL Phosphorus 5.0 H (2.5-4.5) mg/dL Magnesium 4.0 H (1.7-2.2) mg/dL Total Bilirubin 0.8 (0.2-1.3) mg/dL AST 48 H (14-36) U/L ALT 66 H (7-56) U/L Alkaline Phosphatase 201 H (38-126) U/L Total Creatine Kinase 100 (35-230) U/L Troponin I 0.04 ng/mL NT-Pro-B Natriuret Pep 1880 H (0-450) pg/mL Total Protein 6.9 (5.8-8.3) g/dL Albumin 2.9 L (3.0-4.8) g/dL Globulin 4.0 gm/dL Albumin/Globulin Ratio 0.7 L (1.1-1.8) Lipase 282 (23-300) U/L Venous Blood Potassium (3.6-5.2) mmol/L Urine Color (YELLOW) Urine Appearance (CLEAR) Urine pH (4.7-8.0) Ur Specific [place] (1.005-1.035) Urine Protein (<30 mg/dL) mg/dL Urine Glucose (UA) (NEGATIVE) mg/dL Urine Ketones (NEGATIVE) mg/dL Urine Blood (NEGATIVE) Urine Nitrate (NEGATIVE) Urine Bilirubin (NEGATIVE) Urine Urobilinogen (<1 E.U./dL) E.U./dL Ur Leukocyte Esterase (NEGATIVE) Jay/uL Urine RBC (0-2) /hpf Urine WBC (0-6) /hpf Ur Epithelial Cells (0-5) /hpf Urine Bacteria (NEG) Blood Type Blood Type Confirm Antibody Screen BBK History Checked Laboratory Results - last 24 hr 09/17/18 09/17/18 09/17/18 10:57 10:57 10:57 WBC 18.2 H RBC 3.70 Hgb 10.1 L Hct 34.9 L MCV 94.3 MCH 27.3 MCHC 28.9 L RDW 16.8 H Plt Count 269 MPV 10.1 Gran % 77.4 H Lymph % (Auto) 16.1 L [place] % (Auto) 5.9 Eos % (Auto) 0.4 L Baso % (Auto) 0.2 Gran # 14.06 H Lymph # (Auto) 2.9 [place] # (Auto) 1.1 H Eos # (Auto) 0.1 Baso # (Auto) 0.04 PT 14.2 H INR 1.23 APTT 20.2 L pO2 VBG pH VBG pCO2 VBG HCO3 VBG Total CO2 VBG O2 Sat (Calc) VBG Base Excess VBG Potassium Glucose Lactate FiO2 Sodium 159 H* Potassium 3.7 Chloride 120 H Carbon Dioxide 30 Anion Gap 12 BUN 109 H Creatinine 1.3 H Est GFR ( Amer) 47 Est GFR (Non-Af Amer) 39 Random Glucose 146 H Calcium 9.6 Phosphorus 5.0 H Magnesium 4.0 H Total Bilirubin 0.8 AST 48 H ALT 66 H Alkaline Phosphatase 201 H Total Creatine Kinase 100 Troponin I 0.04 NT-Pro-B Natriuret Pep 1880 H Total Protein 6.9 Albumin 2.9 L Globulin 4.0 Albumin/Globulin Ratio 0.7 L Lipase 282 Venous Blood Potassium Urine Color Urine Appearance Urine pH Ur Specific [place] Urine Protein Urine Glucose (UA) Urine Ketones Urine Blood Urine Nitrate Urine Bilirubin Urine Urobilinogen Ur Leukocyte Esterase Urine RBC Urine WBC Ur Epithelial Cells Urine Bacteria Blood Type Blood Type Confirm Antibody Screen BBK History Checked 09/17/18 09/17/18 09/17/18 10:57 11:51 12:50 WBC RBC Hgb Hct MCV MCH MCHC RDW Plt Count MPV Gran % Lymph % (Auto) [place] % (Auto) Eos % (Auto) Baso % (Auto) Gran # Lymph # (Auto) [place] # (Auto) Eos # (Auto) Baso # (Auto) PT INR APTT pO2 39 VBG pH 7.39 VBG pCO2 47.0 VBG HCO3 28.5 H VBG Total CO2 29.9 H VBG O2 Sat (Calc) 70.8 H VBG Base Excess 2.8 H VBG Potassium 3.9 Glucose 143 H Lactate 2.9 H FiO2 21.0 Sodium 161.0 H* Potassium Chloride 123.0 H Carbon Dioxide Anion Gap BUN Creatinine Est GFR ( Amer) Est GFR (Non-Af Amer) Random Glucose Calcium Phosphorus Magnesium Total Bilirubin AST ALT Alkaline Phosphatase Total Creatine Kinase Troponin I NT-Pro-B Natriuret Pep Total Protein Albumin Globulin Albumin/Globulin Ratio Lipase Venous Blood Potassium 3.9 Urine Color Light red Urine Appearance Cloudy Urine pH 8.0 Ur Specific [place] 1.015 Urine Protein 30 H Urine Glucose (UA) Negative Urine Ketones Negative Urine Blood Large H Urine Nitrate Positive H Urine Bilirubin Negative Urine Urobilinogen 1.0 H Ur Leukocyte Esterase Large H Urine RBC Tntc Urine WBC Tntc Ur Epithelial Cells 4 - 5 Urine Bacteria Many Blood Type O POSITIVE Blood Type Confirm Antibody Screen Negative BBK History Checked No verified bt 09/17/18 09/17/18 09/17/18 15:53 15:53 15:53 WBC 17.2 H RBC 3.56 Hgb 9.5 L Hct 33.7 L MCV 94.7 MCH 26.7 MCHC 28.2 L RDW 16.7 H Plt Count 216 MPV 9.5 Gran % 83.5 H Lymph % (Auto) 8.7 L [place] % (Auto) 7.6 H Eos % (Auto) 0.1 L Baso % (Auto) 0.1 Gran # 14.37 H Lymph # (Auto) 1.5 [place] # (Auto) 1.3 H Eos # (Auto) 0.0 Baso # (Auto) 0.02 PT INR APTT pO2 30 VBG pH 7.36 VBG pCO2 48.0 VBG HCO3 27.1 VBG Total CO2 28.6 H VBG O2 Sat (Calc) 49.6 VBG Base Excess 1.0 VBG Potassium 3.0 L Glucose 161 H Lactate 2.9 H FiO2 21.0 Sodium 163.0 H* Potassium Chloride 127.0 H Carbon Dioxide Anion Gap BUN Creatinine Est GFR ( Amer) Est GFR (Non-Af Amer) Random Glucose Calcium Phosphorus Magnesium Total Bilirubin AST ALT Alkaline Phosphatase Total Creatine Kinase Troponin I NT-Pro-B Natriuret Pep Total Protein Albumin Globulin Albumin/Globulin Ratio Lipase Venous Blood Potassium 3.0 L Urine Color Urine Appearance Urine pH Ur Specific [place] Urine Protein Urine Glucose (UA) Urine Ketones Urine Blood Urine Nitrate Urine Bilirubin Urine Urobilinogen Ur Leukocyte Esterase Urine RBC Urine WBC Ur Epithelial Cells Urine Bacteria Blood Type Blood Type Confirm O POSITIVE Antibody Screen BBK History Checked 09/17/18 09/18/18 09/18/18 15:53 05:00 05:00 WBC 14.6 H RBC 3.03 L Hgb 8.2 L Hct 29.1 L MCV 96.0 MCH 27.1 MCHC 28.2 L RDW 16.8 H Plt Count 149 MPV 9.4 Gran % 81.5 H Lymph % (Auto) 10.9 L [place] % (Auto) 6.4 H Eos % (Auto) 1.1 L Baso % (Auto) 0.1 Gran # 11.92 H Lymph # (Auto) 1.6 [place] # (Auto) 0.9 H Eos # (Auto) 0.2 Baso # (Auto) 0.02 PT INR APTT pO2 VBG pH VBG pCO2 VBG HCO3 VBG Total CO2 VBG O2 Sat (Calc) VBG Base Excess VBG Potassium Glucose Lactate FiO2 Sodium 160 H* 160 H* Potassium 3.1 L 4.5 Chloride 126 H 133 H Carbon Dioxide 26 24 Anion Gap 11 7 L BUN 94 H 68 H Creatinine 1.0 0.8 Est GFR ( Amer) > 60 > 60 Est GFR (Non-Af Amer) 52 > 60 Random Glucose 155 H 103 Calcium 8.7 8.4 Phosphorus 4.1 3.3 Magnesium 3.5 H 3.0 H Total Bilirubin 0.7 0.7 AST 45 H 35 ALT 61 H 47 Alkaline Phosphatase 171 H 132 H D Total Creatine Kinase Troponin I NT-Pro-B Natriuret Pep Total Protein 6.5 5.6 L Albumin 2.7 L 2.3 L Globulin 3.8 3.3 Albumin/Globulin Ratio 0.7 L 0.7 L Lipase Venous Blood Potassium Urine Color Urine Appearance Urine pH Ur Specific [place] Urine Protein Urine Glucose (UA) Urine Ketones Urine Blood Urine Nitrate Urine Bilirubin Urine Urobilinogen Ur Leukocyte Esterase Urine RBC Urine WBC Ur Epithelial Cells Urine Bacteria Blood Type Blood Type Confirm Antibody Screen BBK History Checked EKG/Cardiology Studies: Cardiology / EKG Studies 09/17/18 10:25 EKG [ELECTROCARDIOGRAM] Stat Comment: Reason For Exam: AMS Fingerstick Blood Sugar Results: 128 Review of Systems - Review of Systems Review of Systems: Limited, patient is not mentally altered however is still just beginning to communicate Assessment/Plan - Assessment and Plan (Free Text) Assessment: Patient is a 88 F with a history of alzheimer's disease, 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 Plan: Neuro -Alert and awake; mentla status improving -CT head negative for ICH Cardiovascular -Maintain MAP >60 -Keep normotensive Pulmonary -Maintain o2 sat >92% Heme -Monitor BP; currently stable -Heparin and SCDs for DVT prophylaxis Dermatological -Heel and decubitus ulcerations; bactroban ointment -Wound care consulted Infectious Disease -Continue with Cefepime and Vancomycin Day #1 -Urine and blood cultures pending -Leukocytosis improving, afebrile Renal -Hypernatremia; will switch from 1/2 NS to D5W@ 200 for first liter, then @75 for maintenance -Will repeat BMP this afternoon -Maintain normal electrolytes <McraeBilal - Last Filed: 09/18/18 12:27> CCU Objective - Vital Signs / Intake & Output Vital Signs (Last 4 hours): Vital Signs Pulse Resp Pulse Ox 09/18/18 08:42 80 23 09/18/18 08:41 73 09/18/18 08:40 80 18 82 L 09/18/18 08:35 78 15 09/18/18 08:34 80 36 H 09/18/18 08:33 77 28 H 09/18/18 08:32 82 23 09/18/18 08:31 76 28 H 09/18/18 08:30 77 19 09/18/18 08:29 71 31 H 09/18/18 08:28 81 32 H 09/18/18 08:27 78 22 09/18/18 08:26 76 44 H 09/18/18 08:25 77 09/18/18 08:24 76 26 H 09/18/18 08:23 76 23 09/18/18 08:22 84 20 09/18/18 08:21 78 40 H 09/18/18 08:20 78 09/18/18 08:19 81 25 H 09/18/18 08:18 81 21 09/18/18 08:17 79 24 09/18/18 08:16 78 33 H Intake and Output (Last 8hrs): Intake & Output 09/17/18 09/18/18 09/18/18 22:59 06:59 14:59 Intake Total 1610 1050 Output Total 100 350 Balance 1510 700 Weight 52.617 kg 45.904 kg Intake: IV 1610 1050 Left Forearm 1600 900 Right Forearm 10 150 Oral 0 Output: Urine 100 350 Urethral (Adams) 100 350 Other: # Bowel Movements 1 1 - Medications Active Medications: Active Medications Generic Name Dose Route Start Last Admin Trade Name Freq PRN Reason Stop Dose Admin Heparin Sodium (Porcine) 5,000 units 09/18/18 14:00 Heparin SC Q8 BIRD Protocol Cefepime HCl 1 gm in 100 mls @ 100 mls/hr 09/18/18 10:00 09/18/18 09:33 Maxipime 1gm IVPB 100 mls/hr Q24H BIRD Administration Protocol Vancomycin HCl 1 gm in 250 mls @ 167 mls/hr 09/18/18 10:00 09/18/18 09:33 Vancomycin 1gm IVPB 167 mls/hr DAILY BIRD Administration Protocol Potassium Chloride 60 meq/ 1,030 mls @ 75 mls/hr 09/17/18 16:45 09/17/18 16:50 Sodium Chloride IV 75 mls/hr .[id number] BIRD Administration NOREPINEPHRINE BIT/0.9 % NACL 4 mg in 250 mls @ 15 mls/hr 09/17/18 22:42 Levophed 4 Mg/ 250 Ml Ns Premixed IV .[id number] PRN TITRATE PER MD ORDER Protocol 4 MCG/MIN Dextrose 1,000 mls @ 200 mls/hr 09/18/18 11:55 Dextrose 5% In Water 1000 Ml IV 09/18/18 16:54 .Q5H STA Dextrose 1,000 mls @ 75 mls/hr 09/18/18 12:00 Dextrose 5% In Water 1000 Ml IV .[id number] BIRD Mupirocin 1 gm 09/18/18 11:45 Bactroban Ointment TOP BID BIRD - Patient Studies Lab Studies: Microbiology Studies 09/17/18 11:51 Blood Culture - Preliminary Blood-Venous NO GROWTH AFTER 24 HOURS 09/17/18 10:57 Blood Culture - Preliminary Blood-Venous NO GROWTH AFTER 24 HOURS Lab Studies 09/18/18 09/18/18 09/17/18 Range/Units 05:00 05:00 15:53 WBC 14.6 H (4.5-11.0) 10^3/uL RBC 3.03 L (3.5-6.1) 10^6/uL Hgb 8.2 L (12.0-16.0) g/dL Hct 29.1 L (36.0-48.0) % MCV 96.0 (80.0-105.0) fl MCH 27.1 (25.0-35.0) pg MCHC 28.2 L (31.0-37.0) g/dl RDW 16.8 H (11.5-14.5) % Plt Count 149 (120.0-450.0) 10^3/uL MPV 9.4 (7.0-11.0) fl Gran % 81.5 H (50.0-68.0) % Lymph % (Auto) 10.9 L (22.0-35.0) % [place] % (Auto) 6.4 H (1.0-6.0) % Eos % (Auto) 1.1 L (1.5-5.0) % Baso % (Auto) 0.1 (0.0-3.0) % Gran # 11.92 H (1.4-6.5) Lymph # (Auto) 1.6 (1.2-3.4) [place]pson # (Auto) 0.9 H (0.1-0.6) Eos # (Auto) 0.2 (0.0-0.7) Baso # (Auto) 0.02 (0.0-2.0) K/mm3 pO2 (30-55) mm/Hg VBG pH (7.32-7.43) VBG pCO2 (40-60) VBG HCO3 (21-28) mmol/l VBG Total CO2 (22-28) mmol.L VBG O2 Sat (Calc) (40-65) % VBG Base Excess (0.0-2.0) mmol/L VBG Potassium (3.6-5.2) mmol/L Sodium 160 H* 160 H* (132-148) mmol/L Chloride 133 H 126 H (98-107) mmol/L Glucose (65-105) mg/dl Lactate (0.7-2.1) mmol/L FiO2 % Potassium 4.5 3.1 L (3.6-5.0) mmol/L Carbon Dioxide 24 26 (21-33) mmol/L Anion Gap 7 L 11 (10-20) BUN 68 H 94 H (7-21) mg/dL Creatinine 0.8 1.0 (0.7-1.2) mg/dl Est GFR ( Amer) > 60 > 60 Est GFR (Non-Af Amer) > 60 52 Random Glucose 103 155 H (70-110) mg/dL Calcium 8.4 8.7 (8.4-10.5) mg/dL Phosphorus 3.3 4.1 (2.5-4.5) mg/dL Magnesium 3.0 H 3.5 H (1.7-2.2) mg/dL Total Bilirubin 0.7 0.7 (0.2-1.3) mg/dL AST 35 45 H (14-36) U/L ALT 47 61 H (7-56) U/L Alkaline Phosphatase 132 H D 171 H (38-126) U/L Total Protein 5.6 L 6.5 (5.8-8.3) g/dL Albumin 2.3 L 2.7 L (3.0-4.8) g/dL Globulin 3.3 3.8 gm/dL Albumin/Globulin Ratio 0.7 L 0.7 L (1.1-1.8) Venous Blood Potassium (3.6-5.2) mmol/L Urine Color (YELLOW) Urine Appearance (CLEAR) Urine pH (4.7-8.0) Ur Specific [place] (1.005-1.035) Urine Protein (<30 mg/dL) mg/dL Urine Glucose (UA) (NEGATIVE) mg/dL Urine Ketones (NEGATIVE) mg/dL Urine Blood (NEGATIVE) Urine Nitrate (NEGATIVE) Urine Bilirubin (NEGATIVE) Urine Urobilinogen (<1 E.U./dL) E.U./dL Ur Leukocyte Esterase (NEGATIVE) Jay/uL Urine RBC (0-2) /hpf Urine WBC (0-6) /hpf Ur Epithelial Cells (0-5) /hpf Urine Bacteria (NEG) Blood Type Confirm 09/17/18 09/17/18 09/17/18 Range/Units 15:53 15:53 15:53 WBC 17.2 H (4.5-11.0) 10^3/uL RBC 3.56 (3.5-6.1) 10^6/uL Hgb 9.5 L (12.0-16.0) g/dL Hct 33.7 L (36.0-48.0) % MCV 94.7 (80.0-105.0) fl MCH 26.7 (25.0-35.0) pg MCHC 28.2 L (31.0-37.0) g/dl RDW 16.7 H (11.5-14.5) % Plt Count 216 (120.0-450.0) 10^3/uL MPV 9.5 (7.0-11.0) fl Gran % 83.5 H (50.0-68.0) % Lymph % (Auto) 8.7 L (22.0-35.0) % [place]pson % (Auto) 7.6 H (1.0-6.0) % Eos % (Auto) 0.1 L (1.5-5.0) % Baso % (Auto) 0.1 (0.0-3.0) % Gran # 14.37 H (1.4-6.5) Lymph # (Auto) 1.5 (1.2-3.4) [place] # (Auto) 1.3 H (0.1-0.6) Eos # (Auto) 0.0 (0.0-0.7) Baso # (Auto) 0.02 (0.0-2.0) K/mm3 pO2 30 (30-55) mm/Hg VBG pH 7.36 (7.32-7.43) VBG pCO2 48.0 (40-60) VBG HCO3 27.1 (21-28) mmol/l VBG Total CO2 28.6 H (22-28) mmol.L VBG O2 Sat (Calc) 49.6 (40-65) % VBG Base Excess 1.0 (0.0-2.0) mmol/L VBG Potassium 3.0 L (3.6-5.2) mmol/L Sodium 163.0 H* (132-148) mmol/L Chloride 127.0 H (98-107) mmol/L Glucose 161 H (65-105) mg/dl Lactate 2.9 H (0.7-2.1) mmol/L FiO2 21.0 % Potassium (3.6-5.0) mmol/L Carbon Dioxide (21-33) mmol/L Anion Gap (10-20) BUN (7-21) mg/dL Creatinine (0.7-1.2) mg/dl Est GFR ( Amer) Est GFR (Non-Af Amer) Random Glucose (70-110) mg/dL Calcium (8.4-10.5) mg/dL Phosphorus (2.5-4.5) mg/dL Magnesium (1.7-2.2) mg/dL Total Bilirubin (0.2-1.3) mg/dL AST (14-36) U/L ALT (7-56) U/L Alkaline Phosphatase (38-126) U/L Total Protein (5.8-8.3) g/dL Albumin (3.0-4.8) g/dL Globulin gm/dL Albumin/Globulin Ratio (1.1-1.8) Venous Blood Potassium 3.0 L (3.6-5.2) mmol/L Urine Color (YELLOW) Urine Appearance (CLEAR) Urine pH (4.7-8.0) Ur Specific [place] (1.005-1.035) Urine Protein (<30 mg/dL) mg/dL Urine Glucose (UA) (NEGATIVE) mg/dL Urine Ketones (NEGATIVE) mg/dL Urine Blood (NEGATIVE) Urine Nitrate (NEGATIVE) Urine Bilirubin (NEGATIVE) Urine Urobilinogen (<1 E.U./dL) E.U./dL Ur Leukocyte Esterase (NEGATIVE) Jay/uL Urine RBC (0-2) /hpf Urine WBC (0-6) /hpf Ur Epithelial Cells (0-5) /hpf Urine Bacteria (NEG) Blood Type Confirm O POSITIVE 09/17/18 09/17/18 Range/Units 12:50 11:51 WBC (4.5-11.0) 10^3/uL RBC (3.5-6.1) 10^6/uL Hgb (12.0-16.0) g/dL Hct (36.0-48.0) % MCV (80.0-105.0) fl MCH (25.0-35.0) pg MCHC (31.0-37.0) g/dl RDW (11.5-14.5) % Plt Count (120.0-450.0) 10^3/uL MPV (7.0-11.0) fl Gran % (50.0-68.0) % Lymph % (Auto) (22.0-35.0) % Upson % (Auto) (1.0-6.0) % Eos % (Auto) (1.5-5.0) % Baso % (Auto) (0.0-3.0) % Gran # (1.4-6.5) Lymph # (Auto) (1.2-3.4) Upson # (Auto) (0.1-0.6) Eos # (Auto) (0.0-0.7) Baso # (Auto) (0.0-2.0) K/mm3 pO2 39 (30-55) mm/Hg VBG pH 7.39 (7.32-7.43) VBG pCO2 47.0 (40-60) VBG HCO3 28.5 H (21-28) mmol/l VBG Total CO2 29.9 H (22-28) mmol.L VBG O2 Sat (Calc) 70.8 H (40-65) % VBG Base Excess 2.8 H (0.0-2.0) mmol/L VBG Potassium 3.9 (3.6-5.2) mmol/L Sodium 161.0 H* (132-148) mmol/L Chloride 123.0 H (98-107) mmol/L Glucose 143 H (65-105) mg/dl Lactate 2.9 H (0.7-2.1) mmol/L FiO2 21.0 % Potassium (3.6-5.0) mmol/L Carbon Dioxide (21-33) mmol/L Anion Gap (10-20) BUN (7-21) mg/dL Creatinine (0.7-1.2) mg/dl Est GFR ( Amer) Est GFR (Non-Af Amer) Random Glucose (70-110) mg/dL Calcium (8.4-10.5) mg/dL Phosphorus (2.5-4.5) mg/dL Magnesium (1.7-2.2) mg/dL Total Bilirubin (0.2-1.3) mg/dL AST (14-36) U/L ALT (7-56) U/L Alkaline Phosphatase (38-126) U/L Total Protein (5.8-8.3) g/dL Albumin (3.0-4.8) g/dL Globulin gm/dL Albumin/Globulin Ratio (1.1-1.8) Venous Blood Potassium 3.9 (3.6-5.2) mmol/L Urine Color Light red (YELLOW) Urine Appearance Cloudy (CLEAR) Urine pH 8.0 (4.7-8.0) Ur Specific [place] 1.015 (1.005-1.035) Urine Protein 30 H (<30 mg/dL) mg/dL Urine Glucose (UA) Negative (NEGATIVE) mg/dL Urine Ketones Negative (NEGATIVE) mg/dL Urine Blood Large H (NEGATIVE) Urine Nitrate Positive H (NEGATIVE) Urine Bilirubin Negative (NEGATIVE) Urine Urobilinogen 1.0 H (<1 E.U./dL) E.U./dL Ur Leukocyte Esterase Large H (NEGATIVE) Jay/uL Urine RBC Tntc (0-2) /hpf Urine WBC Tntc (0-6) /hpf Ur Epithelial Cells 4 - 5 (0-5) /hpf Urine Bacteria Many (NEG) Blood Type Confirm Laboratory Results - last 24 hr 09/17/18 09/17/18 09/17/18 11:51 12:50 15:53 WBC RBC Hgb Hct MCV MCH MCHC RDW Plt Count MPV Gran % Lymph % (Auto) Upson % (Auto) Eos % (Auto) Baso % (Auto) Gran # Lymph # (Auto) Upson # (Auto) Eos # (Auto) Baso # (Auto) pO2 39 VBG pH 7.39 VBG pCO2 47.0 VBG HCO3 28.5 H VBG Total CO2 29.9 H VBG O2 Sat (Calc) 70.8 H VBG Base Excess 2.8 H VBG Potassium 3.9 Sodium 161.0 H* Chloride 123.0 H Glucose 143 H Lactate 2.9 H FiO2 21.0 Potassium Carbon Dioxide Anion Gap BUN Creatinine Est GFR ( Amer) Est GFR (Non-Af Amer) Random Glucose Calcium Phosphorus Magnesium Total Bilirubin AST ALT Alkaline Phosphatase Total Protein Albumin Globulin Albumin/Globulin Ratio Venous Blood Potassium 3.9 Urine Color Light red Urine Appearance Cloudy Urine pH 8.0 Ur Specific [place] 1.015 Urine Protein 30 H Urine Glucose (UA) Negative Urine Ketones Negative Urine Blood Large H Urine Nitrate Positive H Urine Bilirubin Negative Urine Urobilinogen 1.0 H Ur Leukocyte Esterase Large H Urine RBC Tntc Urine WBC Tntc Ur Epithelial Cells 4 - 5 Urine Bacteria Many Blood Type Confirm O POSITIVE 09/17/18 09/17/18 09/17/18 15:53 15:53 15:53 WBC 17.2 H RBC 3.56 Hgb 9.5 L Hct 33.7 L MCV 94.7 MCH 26.7 MCHC 28.2 L RDW 16.7 H Plt Count 216 MPV 9.5 Gran % 83.5 H Lymph % (Auto) 8.7 L Upson % (Auto) 7.6 H Eos % (Auto) 0.1 L Baso % (Auto) 0.1 Gran # 14.37 H Lymph # (Auto) 1.5 Upson # (Auto) 1.3 H Eos # (Auto) 0.0 Baso # (Auto) 0.02 pO2 30 VBG pH 7.36 VBG pCO2 48.0 VBG HCO3 27.1 VBG Total CO2 28.6 H VBG O2 Sat (Calc) 49.6 VBG Base Excess 1.0 VBG Potassium 3.0 L Sodium 163.0 H* 160 H* Chloride 127.0 H 126 H Glucose 161 H Lactate 2.9 H FiO2 21.0 Potassium 3.1 L Carbon Dioxide 26 Anion Gap 11 BUN 94 H Creatinine 1.0 Est GFR ( Amer) > 60 Est GFR (Non-Af Amer) 52 Random Glucose 155 H Calcium 8.7 Phosphorus 4.1 Magnesium 3.5 H Total Bilirubin 0.7 AST 45 H ALT 61 H Alkaline Phosphatase 171 H Total Protein 6.5 Albumin 2.7 L Globulin 3.8 Albumin/Globulin Ratio 0.7 L Venous Blood Potassium 3.0 L Urine Color Urine Appearance Urine pH Ur Specific [place] Urine Protein Urine Glucose (UA) Urine Ketones Urine Blood Urine Nitrate Urine Bilirubin Urine Urobilinogen Ur Leukocyte Esterase Urine RBC Urine WBC Ur Epithelial Cells Urine Bacteria Blood Type Confirm 09/18/18 09/18/18 05:00 05:00 WBC 14.6 H RBC 3.03 L Hgb 8.2 L Hct 29.1 L MCV 96.0 MCH 27.1 MCHC 28.2 L RDW 16.8 H Plt Count 149 MPV 9.4 Gran % 81.5 H Lymph % (Auto) 10.9 L Upson % (Auto) 6.4 H Eos % (Auto) 1.1 L Baso % (Auto) 0.1 Gran # 11.92 H Lymph # (Auto) 1.6 Upson # (Auto) 0.9 H Eos # (Auto) 0.2 Baso # (Auto) 0.02 pO2 VBG pH VBG pCO2 VBG HCO3 VBG Total CO2 VBG O2 Sat (Calc) VBG Base Excess VBG Potassium Sodium 160 H* Chloride 133 H Glucose Lactate FiO2 Potassium 4.5 Carbon Dioxide 24 Anion Gap 7 L BUN 68 H Creatinine 0.8 Est GFR ( Amer) > 60 Est GFR (Non-Af Amer) > 60 Random Glucose 103 Calcium 8.4 Phosphorus 3.3 Magnesium 3.0 H Total Bilirubin 0.7 AST 35 ALT 47 Alkaline Phosphatase 132 H D Total Protein 5.6 L Albumin 2.3 L Globulin 3.3 Albumin/Globulin Ratio 0.7 L Venous Blood Potassium Urine Color Urine Appearance Urine pH Ur Specific [place] Urine Protein Urine Glucose (UA) Urine Ketones Urine Blood Urine Nitrate Urine Bilirubin Urine Urobilinogen Ur Leukocyte Esterase Urine RBC Urine WBC Ur Epithelial Cells Urine Bacteria Blood Type Confirm Addendum Addendum: 09/18/18 12:15 ICU Attending Addendum Patient seen and examined. Case reviewed on round with housestaff. 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 Source is likely urine however there is a component of dehydration given her elevated sodium and bicarb responding to IVF, not req pressors yet empiric abx with vanc/cefepime awaiting blood and urine cx received 1L NS overnight on top of initial 3L Sodium is increasing as well as chrlodie while CR improving making some urine She likely has enough fluids from a sepsis standpoint but is dehydrated and free water deficit is about 3.7L will stop 1/2NS and give D5W @ 200cc/hr x 1 hour repeat BMP after and consider giving another d5W depending on urine output and chem Pal care consult for goal of care DNR/DNI Rest of care as above Sheridan Mcrae MD Pulmonary Critical Care and Sleep Medicine CC Time: 30mins
--- NOTE | 2018-09-18 12:57 | HP ---
DATE OF EXAM: 09/18/2018 HISTORY OF PRESENT ILLNESS: The patient is an 88-year-old female with a history of progressive Alzheimer's disease presented to the emergency room on 09/17/2018 with altered mental status. The patient apparently had become bed-bound approximately 2-3 weeks ago, and on the day prior to admission, had become lethargic and poorly responsive. There was one episode of nausea and vomiting. No diarrhea, no melena, no bright red blood per rectum, no fever, no chills. PAST MEDICAL HISTORY: The patient's past medical history is positive for Alzheimer's disease and hypertension. The patient has no significant past surgical history and is on no current medications. ALLERGIES: SHE HAS NO KNOWN ALLERGIES. FAMILY HISTORY: Noncontributory. SOCIAL HISTORY: The patient has no history of alcohol or tobacco abuse. She lives with her and is dependent with ADLs and IADLs. PHYSICAL EXAMINATION: GENERAL: The patient is a well-developed, cachectic female in no acute distress. She is lethargic but arousable. VITAL SIGNS: Blood pressure 140/80, pulse 80, respiratory rate 20. The patient is afebrile. HEENT: Head is normocephalic and atraumatic. Pupils are equal, round and reactive to light. Extraocular movements intact. NECK: Supple. No thyromegaly. No carotid bruit. No adenopathy. No nuchal rigidity. LUNGS: Clear. HEART: Regular rate and rhythm. ABDOMEN: Soft with mild suprapubic tenderness to palpation. No guarding, no rebound. EXTREMITIES: Without cyanosis, clubbing or edema. NEUROLOGICAL: The patient is lethargic, arousable and confused. SKIN: Warm and dry. There are stage III pressure ulcers involving the left heel, sacrum and left buttock. LABORATORY DATA: WBCs 14.6, hemoglobin 8.2, hematocrit 29.1, platelets 149,000. Sodium 160, potassium 4.5, chloride 133, CO2 of 24, BUN 68, creatinine 0.8. Troponin was 0.04. BNP is elevated at 1880. Urinalysis showed large blood and leukocyte esterase, rbc's and wbc's too numerous to count with many bacteria. DIAGNOSTICS: Chest x-ray showed no active disease. CT scan of the head showed no acute bleeds or infarcts. IMPRESSION: 1. Urinary tract infection, rule out sepsis. 2. Advanced Alzheimer's disease. 3. Immobility/pressure ulcers of the heel and sacrum. PLAN: The patient has been admitted to the intensive care unit. She is DNR/DNI at family's request, so at this time we will transfer to the medical-surgical floor for further management. The patient is currently on IV cefepime 1 g every 24 hours, normal saline at 75 mL/hour. She had received a dose of vancomycin in the emergency department. Order physical therapy and social work for discharge planning. Jim Patterson JD/
[2018-09-18] MEDS: Mupirocin 2% Ointment 15 GM TUBE TOP SCH (14:02)
[2018-09-18 17:50] LABS: BLOOD UREA NITROGEN 56 mg/dL (7-21); CALCIUM 8.7 mg/dL (8.4-10.5); GFR NON-AFRICAN AMERICAN > 60
[2018-09-19 01:55] LABS: BLOOD UREA NITROGEN 54 mg/dL (7-21); GFR NON-AFRICAN AMERICAN > 60
[2018-09-19] MEDS: Dextrose 5%/0.45% NS 1,000 ML IV SCH ×2 (02:20→17:35)
[2018-09-19 05:38] LABS: BASO # 0.01 K/mm3 (0.0-2.0); BASO % 0.1 % (0.0-3.0); EOS # 0.2 (0.0-0.7); EOS % 1.8 % (1.5-5.0); GRAN # 10.9 (1.4-6.5); GRAN % 80.6 % (50.0-68.0); HEMOGLOBIN 8.3 g/dL (12.0-16.0); LYMPH # 1.6 (1.2-3.4); LYMPH % 11.6 % (22.0-35.0); MEAN CELL VOLUME 95.1 fl (80.0-105.0); MEAN CORPUSCULAR HGB CONC 28.4 g/dl (31.0-37.0); MEAN PLATELET VOLUME 10.2 fl (7.0-11.0); MONO # 0.8 (0.1-0.6); MONO % 5.9 % (1.0-6.0); RBC 3.07 10^6/uL (3.5-6.1); RED CELL DISTRIBUTION WIDTH 16.6 % (11.5-14.5); WHITE BLOOD COUNT 13.5 10^3/uL (4.5-11.0)
[2018-09-19 05:55] LABS: ALB/GLOB RATIO 0.7 (1.1-1.8); ALBUMIN 2.3 g/dL (3.0-4.8); ALT/SGPT 45 U/L (7-56); AST/SGOT 46 U/L (14-36); BLOOD UREA NITROGEN 49 mg/dL (7-21); GFR NON-AFRICAN AMERICAN > 60
[2018-09-19] MEDS ORDERED: Potassium Phosphate 15 MMOLE in Dextrose 5% In Water 250 ML IVPB ONE (07:15)
[2018-09-19] MEDS ORDERED: Albumin Human 25% (12.5 gm/50 ml) IV ONE ×2 (07:24→08:08)
[2018-09-19] MEDS: Vancomycin 1gm in NS 250ml 1 GM/250 ML BAG IVPB SCH (09:30)
[2018-09-19] MEDS: Cefepime 1gm in NS 100ml 1 GM/100 ML BAG IVPB SCH (09:30)
[2018-09-19] MEDS: Mupirocin 2% Ointment 15 GM TUBE TOP SCH ×2 (10:00→19:11)
--- NOTE | 2018-09-19 16:59 | CP.PCM.PN ---
Subjective - Date & Time of Evaluation Date of Evaluation: 09/19/18 Time of Evaluation: 16:00 - Subjective Subjective: more responsive today, NAD Objective - Vital Signs/Intake and Output Vital Signs (last 24 hours): Temp Pulse Resp BP Pulse Ox 98.6 F 95 H 21 100/59 L 100 09/19/18 12:48 09/19/18 11:40 09/19/18 11:30 09/19/18 08:01 09/19/18 11:40 Intake and Output: 09/19/18 09/19/18 06:59 18:59 Intake Total 1000 Output Total 300 Balance 700 - Medications Medications: Current Medications Heparin Sodium (Porcine) (Heparin) 5,000 units SC Q8 [facility]; Protocol Last Admin: 09/19/18 14:16 Dose: 5,000 units Cefepime HCl (Maxipime 1gm) 1 gm in 100 mls @ 100 mls/hr IVPB Q24H [facility]; Protocol Last Admin: 09/19/18 09:30 Dose: 100 mls/hr Vancomycin HCl (Vancomycin 1gm) 1 gm in 250 mls @ 167 mls/hr IVPB DAILY [facility]; Protocol Last Admin: 09/19/18 09:30 Dose: 167 mls/hr Dextrose (Dextrose 5% In Water 1000 Ml) 1,000 mls @ 75 mls/hr IV .[id number] [facility] Potassium Chloride 10 meq/ (Dextrose/Sodium Chloride) 1,005 mls @ 75 mls/hr IV .[id number] [facility] Mupirocin (Bactroban Ointment) 1 gm TOP BID [facility] Last Admin: 09/18/18 14:02 Dose: 1 u - Labs Labs: 09/19/18 05:00 09/19/18 05:00 PT 14.2 SECONDS (9.4-12.5) H 09/17/18 10:57 INR 1.23 09/17/18 10:57 APTT 20.2 Seconds (25.1-36.5) L 09/17/18 10:57 - Respiratory Exam Respiratory Exam: Clear to Ausculation Bilateral - Cardiovascular Exam Cardiovascular Exam: REGULAR RHYTHM - GI/Abdominal Exam GI & Abdominal Exam: Soft, Normal Bowel Sounds - Extremities Exam Extremities Exam: Normal Inspection - Neurological Exam Neurological Exam: Altered Assessment and Plan (1) UTI (urinary tract infection) Status: Acute (2) Dehydration Status: Acute (3) Alzheimer disease Status: Chronic - Assessment and Plan (Free Text) Plan: continue IV fluid, add K+, monitor lytes, continue IV Abx, SW for DC planning
[2018-09-19] MEDS: Potassium Chloride 10 MEQ in Dextrose 5%/0.45% NS 1,000 ML IV SCH (18:26)
[2018-09-20 06:01] LABS: BASO # 0.01 K/mm3 (0.0-2.0); BASO % 0.1 % (0.0-3.0); EOS # 0.2 (0.0-0.7); EOS % 1.5 % (1.5-5.0); GRAN # 9.25 (1.4-6.5); GRAN % 76.1 % (50.0-68.0); HEMOGLOBIN 8.2 g/dL (12.0-16.0); LYMPH % 16.6 % (22.0-35.0); MEAN CELL VOLUME 93.6 fl (80.0-105.0); MEAN CORPUSCULAR HEMOGLOBIN 27.6 pg (25.0-35.0); MEAN CORPUSCULAR HGB CONC 29.5 g/dl (31.0-37.0); MEAN PLATELET VOLUME 10.1 fl (7.0-11.0); MONO # 0.7 (0.1-0.6); MONO % 5.7 % (1.0-6.0); RBC 2.97 10^6/uL (3.5-6.1); RED CELL DISTRIBUTION WIDTH 16.4 % (11.5-14.5); WHITE BLOOD COUNT 12.1 10^3/uL (4.5-11.0)
[2018-09-20 08:07] LABS: BLOOD UREA NITROGEN 33 mg/dL (7-21); CALCIUM 8.7 mg/dL (8.4-10.5); GFR NON-AFRICAN AMERICAN > 60
--- NOTE | 2018-09-20 09:33 | CP.PCM.CON ---
History of Present Illness - History of Present Illness History of Present Illness: Palliative consult requested by Dr Opal Patterson Reason: Goals of care 88 year old female with past medical history of Alzheimer's, OA,HTN, vaginal bleeding endometrial mass who presented to ED on 09/17/18 with altered mental status, decreased appetite Family reports that the patient health has been declining over the past 2 months. Family denied fever,chills, nausea, vomiting, diarrhea or constipation. Head CT: No acute findings Chest X ray: No active disease EKG: ST with PVC's Labs:Wbc 18.2, Hgb 10.1, Plt 269, Na 159, K 3.7, BUN 109, Creat 1.2, Glucose 146, Phos 5.0. Mag 4.0. Ast 48, ALT 66, Alk Phos 201, BNP 1880, Alb 2.9, Tropon 0.04. U/A positive blood ,nitrate, leukocytes and bacteria. Urine culture E Coli & Stretococcus Anginosus +, blood cultures negative Family History: Non contributory. Social History: Never smoker, no alcohol or drug use. Lives with spouse and dafter Advance Care Planning: She is DNR/DNI Review of Systems: As per HPI, patient is altered unable to obtain Past Patient History - Infectious Disease Hx of Infectious Diseases: None - Tetanus Immunizations Tetanus Immunization: Unknown - Past Social History Smoking Status: Never Smoked - CARDIAC Hx Cardiac Disorders: No - PULMONARY Hx Respiratory Disorders: No - NEUROLOGICAL Hx Alzheimer's Disease: Yes (10 yrs) - HEENT Hx HEENT Problems: Yes (blind in right eye) - RENAL Hx Chronic Kidney Disease: No - ENDOCRINE/METABOLIC Hx Endocrine Disorders: No - HEMATOLOGICAL/ONCOLOGICAL Hx Blood Disorders: No - INTEGUMENTARY Hx Dermatological Problems: No - MUSCULOSKELETAL/RHEUMATOLOGICAL Hx Musculoskeletal Disorders: Yes - GASTROINTESTINAL Hx Crohn's Disease: Yes - GENITOURINARY/GYNECOLOGICAL Hx Incontinence: Yes - PSYCHIATRIC Hx Emotional Abuse: No Hx Physical Abuse: No Hx Substance Use: No - SURGICAL HISTORY Other/Comment: colon sx in 8 yrs ago - ANESTHESIA Hx Anesthesia: Yes Hx Anesthesia Reactions: No Hx Malignant Hyperthermia: No Meds Allergies/Adverse Reactions: Allergies Allergy/AdvReac Type Severity Reaction Status Date / Time No Known Allergies Allergy Verified 09/17/18 10:28 - Medications Medications: Current Medications Heparin Sodium (Porcine) (Heparin) 5,000 units SC Q8 [facility]; Protocol Last Admin: 09/20/18 06:45 Dose: 5,000 units Cefepime HCl (Maxipime 1gm) 1 gm in 100 mls @ 100 mls/hr IVPB Q24H [facility]; Protocol Last Admin: 09/19/18 09:30 Dose: 100 mls/hr Vancomycin HCl (Vancomycin 1gm) 1 gm in 250 mls @ 167 mls/hr IVPB DAILY [facility]; Protocol Last Admin: 09/19/18 09:30 Dose: 167 mls/hr Dextrose (Dextrose 5% In Water 1000 Ml) 1,000 mls @ 75 mls/hr IV .[id number] [facility] Potassium Chloride 10 meq/ (Dextrose/Sodium Chloride) 1,005 mls @ 75 mls/hr IV .[id number] [facility] Last Admin: 09/19/18 18:26 Dose: 75 mls/hr Mupirocin (Bactroban Ointment) 1 gm TOP BID [facility] Last Admin: 09/19/18 19:11 Dose: Not Given Physical Exam - Constitutional Appears: Cachectic, Chronically Ill - Head Exam Head Exam: NORMOCEPHALIC - Eye Exam Eye Exam: Normal appearance, PERRL - ENT Exam ENT Exam: Mucous Membranes Moist, Normal Oropharynx - Respiratory Exam Respiratory Exam: Decreased Breath Sounds, NORMAL BREATHING PATTERN - Cardiovascular Exam Cardiovascular Exam: Tachycardia, +S1, +S2 - GI/Abdominal Exam GI & Abdominal Exam: Hypoactive Bowel Sounds, Soft Additional comments: no tenderness or guarding - Exam Additional comments: incontinent - Extremities Exam Extremities exam: Positive for: pedal pulses present Additional comments: left heel ulcer - Back Exam Additional comments: sacral and left buttock ulcers - Neurological Exam Neurological exam: Altered - Skin Skin Exam: Dry, Pallor - Additional Findings Additional findings: palliative performance scale rating 30% Results - Vital Signs Recent Vital Signs: Last Vital Signs Temp 98.3 F 09/20/18 08:00 Pulse 94 H 09/20/18 08:40 Resp 27 H 09/20/18 08:40 BP 91/49 L 09/20/18 08:03 Pulse Ox 100 09/20/18 08:40 - Labs Result Diagrams: 09/20/18 05:30 09/20/18 05:30 Labs: Laboratory Results - last 24 hr 09/19/18 09/20/18 09/20/18 12:18 05:30 05:30 WBC 12.1 H RBC 2.97 L Hgb 8.2 L Hct 27.8 L MCV 93.6 MCH 27.6 MCHC 29.5 L RDW 16.4 H Plt Count 174 MPV 10.1 Gran % 76.1 H Lymph % (Auto) 16.6 L Gibson % (Auto) 5.7 Eos % (Auto) 1.5 Baso % (Auto) 0.1 Gran # 9.25 H Lymph # (Auto) 2.0 Gibson # (Auto) 0.7 H Eos # (Auto) 0.2 Baso # (Auto) 0.01 Sodium 148 Potassium 4.1 Chloride 122 H Carbon Dioxide 20 L Anion Gap 10 BUN 33 H Creatinine 0.6 L Est GFR ( Amer) > 60 Est GFR (Non-Af Amer) > 60 POC Glucose (mg/dL) 143 H Random Glucose 125 H Calcium 8.7 Assessment & Plan - Assessment and Plan (Free Text) Assessment: 88 year old female with history of Alzheimer's dementia, OA, HTN and endometrial mass who is admitted with UTI, sepsis, ulcer of sacrum, left buttock and left heel, YOSELYN,hypokalemia and anemia Patient is altered, non verbal no apparent distress. Patient ad daughter at bedside. Goals of care discussion ensued. Family states that they do not want aggressive interventions such as CPR/intubation. They verbalize that patient's health has been declining over the past few months and they realize she is progressing towards end of life. Preliminary discussion regarding artificial nutrition and dialysis were also initiated. Family states that they would not want these measures. Family si agreeable to central line placement and vasporessors. At present time they are hopeful her condition will improve over the next few days. They have strong spiritual belief in God and feel that God will provide Time spent in goals of care discussion, 30 minutes Plan: Gaols of care and advance care planning UTI/ Sepsis: Cefepime, Vancomycin YOSELYN: IVF's , monitor labs Hypokalemia: K replacement Decubiti ulcers: Wound care Speech and swallow exam
[2018-09-20] MEDS: Vancomycin 1gm in NS 250ml 1 GM/250 ML BAG IVPB SCH (09:38)
[2018-09-20] MEDS: Cefepime 1gm in NS 100ml 1 GM/100 ML BAG IVPB SCH (09:38)
[2018-09-20] MEDS: Potassium Chloride 10 MEQ in Dextrose 5%/0.45% NS 1,000 ML IV SCH (09:39)
[2018-09-20] MEDS: Mupirocin 2% Ointment 15 GM TUBE TOP SCH ×2 (13:03→18:12)
--- NOTE | 2018-09-20 16:04 | CP.PCM.PN ---
Subjective - Date & Time of Evaluation Date of Evaluation: 09/20/18 Time of Evaluation: 16:00 - Subjective Subjective: more awake and responsive today, NAD Objective - Vital Signs/Intake and Output Vital Signs (last 24 hours): Temp Pulse Resp BP Pulse Ox 98.3 F 94 H 27 H 91/49 L 100 09/20/18 08:00 09/20/18 08:40 09/20/18 08:40 09/20/18 08:03 09/20/18 08:40 Intake and Output: 09/20/18 09/20/18 06:59 18:59 Intake Total 1020 700 Output Total 320 200 Balance 700 500 - Medications Medications: Current Medications Heparin Sodium (Porcine) (Heparin) 5,000 units SC Q8 [facility]; Protocol Last Admin: 09/20/18 13:26 Dose: 5,000 units Mupirocin (Bactroban Ointment) 1 gm TOP BID [facility] Last Admin: 09/20/18 13:03 Dose: 1 u - Labs Labs: 09/20/18 05:30 09/20/18 05:30 PT 14.2 SECONDS (9.4-12.5) H 09/17/18 10:57 INR 1.23 09/17/18 10:57 APTT 20.2 Seconds (25.1-36.5) L 09/17/18 10:57 - Respiratory Exam Respiratory Exam: Clear to Ausculation Bilateral, NORMAL BREATHING PATTERN - Cardiovascular Exam Cardiovascular Exam: REGULAR RHYTHM - GI/Abdominal Exam GI & Abdominal Exam: Soft, Normal Bowel Sounds - Extremities Exam Extremities Exam: Normal Inspection - Neurological Exam Neurological Exam: Altered - Skin Skin Exam: Dry, Warm Assessment and Plan (1) UTI (urinary tract infection) Status: Acute (2) Dehydration Status: Acute (3) Alzheimer disease Status: Chronic - Assessment and Plan (Free Text) Plan: DC IV fluid & Abx, check labs in am, SW for DC planning
[2018-09-21 07:00] LABS: BASO # 0.01 K/mm3 (0.0-2.0); BASO % 0.1 % (0.0-3.0); EOS # 0.2 (0.0-0.7); EOS % 1.8 % (1.5-5.0); GRAN # 9.73 (1.4-6.5); GRAN % 77.5 % (50.0-68.0); HEMOGLOBIN 7.4 g/dL (12.0-16.0); LYMPH # 1.8 (1.2-3.4); LYMPH % 13.9 % (22.0-35.0); MEAN CELL VOLUME 92.7 fl (80.0-105.0); MEAN CORPUSCULAR HEMOGLOBIN 27.1 pg (25.0-35.0); MEAN CORPUSCULAR HGB CONC 29.2 g/dl (31.0-37.0); MEAN PLATELET VOLUME 10.3 fl (7.0-11.0); MONO # 0.8 (0.1-0.6); MONO % 6.7 % (1.0-6.0); RBC 2.73 10^6/uL (3.5-6.1); RED CELL DISTRIBUTION WIDTH 16.6 % (11.5-14.5); WHITE BLOOD COUNT 12.6 10^3/uL (4.5-11.0)
[2018-09-21 07:38] LABS: ALB/GLOB RATIO 0.6 (1.1-1.8); ALT/SGPT 41 U/L (7-56); AST/SGOT 28 U/L (14-36); BLOOD UREA NITROGEN 21 mg/dL (7-21); CALCIUM 8.7 mg/dL (8.4-10.5); GFR NON-AFRICAN AMERICAN > 60
[2018-09-21 09:16] LABS: HEMOGLOBIN 7.7 g/dL (12.0-16.0)
--- NOTE | 2018-09-21 12:06 | CP.PCM.PN ---
Subjective - Date & Time of Evaluation Date of Evaluation: 09/21/18 Time of Evaluation: 11:50 - Subjective Subjective: NAD, awake and responsive Objective - Vital Signs/Intake and Output Vital Signs (last 24 hours): Temp Pulse Resp BP Pulse Ox 98.8 F 91 H 16 105/56 L 92 L 09/21/18 11:59 09/21/18 11:59 09/21/18 11:59 09/21/18 11:59 09/21/18 06:00 Intake and Output: 09/21/18 09/21/18 06:59 18:59 Intake Total 120 25 Output Total 740 Balance -620 25 - Medications Medications: Current Medications Ciprofloxacin (Cipro) 250 mg PO Q12 [facility]; Protocol Stop: 09/21/18 16:02 Last Admin: 09/21/18 10:02 Dose: 250 mg Heparin Sodium (Porcine) (Heparin) 5,000 units SC Q8 [facility]; Protocol Last Admin: 09/20/18 22:01 Dose: Not Given Mupirocin (Bactroban Ointment) 1 gm TOP BID [facility] Last Admin: 09/20/18 18:12 Dose: 1 applic - Labs Labs: 09/21/18 08:55 09/21/18 06:30 PT 14.2 SECONDS (9.4-12.5) H 09/17/18 10:57 INR 1.23 09/17/18 10:57 APTT 20.2 Seconds (25.1-36.5) L 09/17/18 10:57 - Respiratory Exam Respiratory Exam: Clear to Ausculation Bilateral, NORMAL BREATHING PATTERN - Cardiovascular Exam Cardiovascular Exam: REGULAR RHYTHM - GI/Abdominal Exam GI & Abdominal Exam: Soft, Normal Bowel Sounds - Extremities Exam Extremities Exam: Normal Inspection - Neurological Exam Neurological Exam: Altered - Skin Skin Exam: Dry, Warm Assessment and Plan (1) UTI (urinary tract infection) Status: Acute (2) Dehydration Status: Acute (3) Alzheimer disease Status: Chronic (4) Anemia Status: Acute - Assessment and Plan (Free Text) Plan: monitor hb/hct, transfuse PRBC's, pt DNR, will not pursue GI work-up due to pt's condition and adv dementia
--- NOTE | 2018-09-21 12:06 | PQF ---
PROVIDER RESPONSE TEXT: Patient with UTI, blood cultures negative. No clinical evidence for sepsis REVIEWER QUERY TEXT: Condition Necessitating Admission Please clarify the medical conditions and the associated clinical risk factors necessitating admissio n. The patient's Clinical Indicators include: Query created by: Lexi Ron on 09/21/2018 11:03 AM Electronically signed by: Jim Patterson MD 09/21/2018 12:03 PM
[2018-09-21] MEDS: Mupirocin 2% Ointment 15 GM TUBE TOP SCH (13:38)
[2018-09-22 07:30] LABS: MEAN CELL VOLUME 84.9 fl (80.0-105.0); MEAN CORPUSCULAR HEMOGLOBIN 26.5 pg (25.0-35.0); MEAN CORPUSCULAR HGB CONC 31.3 g/dl (31.0-37.0); MEAN PLATELET VOLUME 10.2 fl (7.0-11.0); RBC 4.37 10^6/uL (3.5-6.1); RED CELL DISTRIBUTION WIDTH 19.2 % (11.5-14.5); WHITE BLOOD COUNT 14.4 10^3/uL (4.5-11.0)
[2018-09-22 07:34] LABS: HEMOGLOBIN 11.6 g/dL (12.0-16.0)
[2018-09-22] MEDS: Mupirocin 2% Ointment 15 GM TUBE TOP SCH (11:23)
--- NOTE | 2018-09-22 11:45 | RAD ---
Date of service: 09/22/2018 HISTORY: r/o aspiration pne COMPARISON: 09/17/2018 and 02/08/2013 serial chest radiographs FINDINGS: LUNGS: No active pulmonary disease. PLEURA: No significant pleural effusion identified, no pneumothorax apparent. CARDIOVASCULAR: No radiographic findings to suggest acute or significant cardiovascular disease. Atherosclerotic calcifications identified primarily aortic arch. OSSEOUS STRUCTURES: No significant abnormalities. VISUALIZED UPPER ABDOMEN: Normal. OTHER FINDINGS: None. IMPRESSION: No active disease. No significant interval change compared to the prior examination(s).
--- NOTE | 2018-09-22 12:13 | CP.PCM.PN ---
Subjective - Date & Time of Evaluation Date of Evaluation: 09/22/18 Time of Evaluation: 11:55 - Subjective Subjective: resting comfortably,NAD Objective - Vital Signs/Intake and Output Vital Signs (last 24 hours): Temp Pulse Resp BP Pulse Ox 97.6 F 88 20 120/68 95 09/22/18 06:00 09/22/18 06:00 09/22/18 06:00 09/22/18 06:00 09/22/18 06:00 Intake and Output: 09/22/18 09/22/18 06:59 18:59 Intake Total 50 Output Total 200 Balance -150 - Medications Medications: Current Medications Ciprofloxacin (Cipro) 250 mg PO Q12 [facility]; Protocol Stop: 09/23/18 12:09 Heparin Sodium (Porcine) (Heparin) 5,000 units SC Q8 [facility]; Protocol Last Admin: 09/22/18 05:56 Dose: 5,000 units Mupirocin (Bactroban Ointment) 1 gm TOP BID [facility] Last Admin: 09/22/18 11:23 Dose: 1 applic - Labs Labs: 09/22/18 07:00 09/21/18 06:30 PT 14.2 SECONDS (9.4-12.5) H 09/17/18 10:57 INR 1.23 09/17/18 10:57 APTT 20.2 Seconds (25.1-36.5) L 09/17/18 10:57 - Respiratory Exam Respiratory Exam: Clear to Ausculation Bilateral - Cardiovascular Exam Cardiovascular Exam: REGULAR RHYTHM - GI/Abdominal Exam GI & Abdominal Exam: Soft, Normal Bowel Sounds - Extremities Exam Extremities Exam: Normal Inspection - Neurological Exam Neurological Exam: Altered - Skin Skin Exam: Dry, Warm Assessment and Plan (1) UTI (urinary tract infection) Status: Acute (2) Dehydration Status: Acute (3) Alzheimer disease Status: Chronic (4) Anemia Status: Acute - Assessment and Plan (Free Text) Plan: continue PO Cipro, check CXR, labs in am
[2018-09-22] MEDS ORDERED: Ciprofloxacin 400mg/200ml D5W 400 MG/200 ML BAG IVPB STA (16:46)
[2018-09-23 06:53] LABS: BASO # 0.03 K/mm3 (0.0-2.0); BASO % 0.2 % (0.0-3.0); EOS # 0.2 (0.0-0.7); EOS % 1.4 % (1.5-5.0); GRAN # 9.58 (1.4-6.5); GRAN % 76.5 % (50.0-68.0); HEMOGLOBIN 10.9 g/dL (12.0-16.0); LYMPH # 1.7 (1.2-3.4); LYMPH % 13.4 % (22.0-35.0); MEAN CELL VOLUME 85.5 fl (80.0-105.0); MEAN CORPUSCULAR HEMOGLOBIN 26.4 pg (25.0-35.0); MEAN CORPUSCULAR HGB CONC 30.9 g/dl (31.0-37.0); MEAN PLATELET VOLUME 10.8 fl (7.0-11.0); MONO # 1.1 (0.1-0.6); MONO % 8.5 % (1.0-6.0); RBC 4.13 10^6/uL (3.5-6.1); RED CELL DISTRIBUTION WIDTH 19.4 % (11.5-14.5)
[2018-09-23 07:30] LABS: ALB/GLOB RATIO 0.7 (1.1-1.8); ALBUMIN 2.3 g/dL (3.0-4.8); ALT/SGPT 33 U/L (7-56); AST/SGOT 34 U/L (14-36); BLOOD UREA NITROGEN 29 mg/dL (7-21); CALCIUM 9.3 mg/dL (8.4-10.5); GFR NON-AFRICAN AMERICAN > 60
[2018-09-23] MEDS: Mupirocin 2% Ointment 15 GM TUBE TOP SCH (11:20)
[2018-09-23] MEDS ORDERED: Potassium Chloride 20 mEq/15 ml LIQ UD PO STA (11:28)
--- NOTE | 2018-09-23 11:28 | CP.PCM.PN ---
Subjective - Date & Time of Evaluation Date of Evaluation: 09/23/18 Time of Evaluation: 11:15 - Subjective Subjective: NAD, eating poorly per RN Objective - Vital Signs/Intake and Output Vital Signs (last 24 hours): Temp Pulse Resp BP Pulse Ox 97.5 F L 97 H 18 112/58 L 94 L 09/23/18 06:00 09/23/18 06:00 09/23/18 06:00 09/23/18 06:00 09/23/18 06:00 Intake and Output: 09/23/18 09/23/18 06:59 18:59 Intake Total 360 Balance 360 - Medications Medications: Current Medications Ciprofloxacin (Cipro) 250 mg PO Q12 BIRD; Protocol Stop: 09/23/18 12:09 Last Admin: 09/23/18 11:20 Dose: 250 mg Heparin Sodium (Porcine) (Heparin) 5,000 units SC Q8 BIRD; Protocol Last Admin: 09/23/18 07:03 Dose: 5,000 units Mupirocin (Bactroban Ointment) 1 gm TOP BID BIRD Last Admin: 09/23/18 11:20 Dose: 1 applic - Labs Labs: 09/23/18 05:30 09/23/18 05:30 PT 14.2 SECONDS (9.4-12.5) H 09/17/18 10:57 INR 1.23 09/17/18 10:57 APTT 20.2 Seconds (25.1-36.5) L 09/17/18 10:57 - Respiratory Exam Respiratory Exam: Clear to Ausculation Bilateral, NORMAL BREATHING PATTERN - Cardiovascular Exam Cardiovascular Exam: REGULAR RHYTHM - GI/Abdominal Exam GI & Abdominal Exam: Soft, Normal Bowel Sounds - Extremities Exam Extremities Exam: Normal Inspection - Neurological Exam Neurological Exam: Altered - Skin Skin Exam: Dry, Warm Assessment and Plan (1) UTI (urinary tract infection) Status: Acute (2) Dehydration Status: Acute (3) Alzheimer disease Status: Chronic (4) Anemia Status: Acute - Assessment and Plan (Free Text) Plan: on IV Cipro, unable to take PO Cipro due to swallowing difficulty, monitor lytes, Hb/Hct s/p transfx PRBC's
[2018-09-23 12:43] LABS: WHITE BLOOD COUNT 12.5 10^3/uL (4.5-11.0)
[2018-09-23 22:28] VITALS: RESP 18
[2018-09-24] MEDS: Mupirocin 2% Ointment 15 GM TUBE TOP SCH (10:00)
--- NOTE | 2018-09-24 12:49 | CP.PCM.PN ---
Subjective - Date & Time of Evaluation Date of Evaluation: 09/24/18 Time of Evaluation: 11:00 - Subjective Subjective: lethargic,responds to verbal /tactile stimuli Objective - Vital Signs/Intake and Output Vital Signs (last 24 hours): Temp Pulse Resp BP Pulse Ox 98.7 F 90 18 109/57 L 100 09/24/18 06:00 09/24/18 06:00 09/24/18 06:00 09/24/18 06:00 09/24/18 06:00 - Medications Medications: Current Medications Heparin Sodium (Porcine) (Heparin) 5,000 units SC Q8 BIRD; Protocol Last Admin: 09/24/18 05:43 Dose: 5,000 units Mupirocin (Bactroban Ointment) 1 gm TOP BID BIRD Last Admin: 09/23/18 11:20 Dose: 1 applic - Labs Labs: 09/23/18 05:30 09/23/18 05:30 PT 14.2 SECONDS (9.4-12.5) H 09/17/18 10:57 INR 1.23 09/17/18 10:57 APTT 20.2 Seconds (25.1-36.5) L 09/17/18 10:57 - Constitutional Appears: Cachectic, Chronically Ill - Head Exam Head Exam: NORMOCEPHALIC - Eye Exam Eye Exam: Normal appearance, PERRL - ENT Exam ENT Exam: Mucous Membranes Moist - Respiratory Exam Respiratory Exam: Decreased Breath Sounds, NORMAL BREATHING PATTERN - Cardiovascular Exam Cardiovascular Exam: REGULAR RHYTHM, +S1, +S2 - GI/Abdominal Exam GI & Abdominal Exam: Soft, Hypoactive Bowel Sounds - Extremities Exam Extremities Exam: Pedal Edema - Neurological Exam Neurological Exam: Altered - Skin Skin Exam: Dry, Pallor, Warm Additional comments: pressure ulcers both buttocks, sacrum Assessment and Plan - Assessment and Plan (Free Text) Assessment: 88 year old female with history of dementia who is admitted with UTI, anemia and dehydration. Family at bedside. Family reports patient is almost at baseline. Family will take patient home when medically cleared. No interest in hospice care at this t katina. Will reconsider if patients condition continues to decline Time spent in goals of care discussion, 20 minutes Plan: Goals of long-term when stable
[2018-09-24 13:12] LABS: HEMOGLOBIN 11.8 g/dL (12.0-16.0); MEAN CORPUSCULAR HEMOGLOBIN 26.9 pg (25.0-35.0); MEAN PLATELET VOLUME 9.7 fl (7.0-11.0); RBC 4.38 10^6/uL (3.5-6.1); RED CELL DISTRIBUTION WIDTH 19.6 % (11.5-14.5)
[2018-09-24 13:21] LABS: ALB/GLOB RATIO 0.7 (1.1-1.8); ALBUMIN 2.4 g/dL (3.0-4.8); ALT/SGPT 39 U/L (7-56); AST/SGOT 33 U/L (14-36); BLOOD UREA NITROGEN 28 mg/dL (7-21); CALCIUM 9.5 mg/dL (8.4-10.5); GFR NON-AFRICAN AMERICAN > 60
[2018-09-24] MEDS: Ciprofloxacin 400mg/200ml D5W 400 MG/200 ML BAG IVPB STA ×2 (14:18→15:29)
[2018-09-24 14:41] VITALS: BP 101/59; PULSE 108; TEMP 98.9; O2SAT 98
[2018-09-25] MEDS ORDERED: Collagenase 250 Units/gm Ointment(30 gm) TOP SCH (10:00)
== END 2018-09-24 17:29 | disposition home or self-care (01) | DRG 689 ==
LOC: ED 10:19 → ERH 13:23 → ICU 14:21 → 5RNO 09-20 13:10
PROVIDERS: ADMIT Internal Medicine; ATTEND Internal Medicine
PROC: 30233N1 Transfusion of Nonautologous Red Blood Cells into Peripheral Vein, Percutaneous Approach (ICD-10-PCS; principal; 2018-09-21)
DX: N39.0 Urinary tract infection, site not specified (principal); L89.623 Pressure ulcer of left heel, stage 3; L89.153 Pressure ulcer of sacral region, stage 3; L89.323 Pressure ulcer of left buttock, stage 3; E87.0 Hyperosmolality and hypernatremia; N17.9 Acute kidney failure, unspecified; R64 Cachexia; D64.9 Anemia, unspecified; G30.9 Alzheimer's disease, unspecified; F02.80 Dementia in other diseases classified elsewhere, unspecified severity, without behavioral disturbance, psychotic disturbance, mood disturbance, and anxiety; E86.0 Dehydration; Z66 Do not resuscitate; I10 Essential (primary) hypertension; E87.6 Hypokalemia; H54.61 Unqualified visual loss, right eye, normal vision left eye; Z68.21 Body mass index [BMI] 21.0-21.9, adult

== ENCOUNTER 2018-10-30 12:20 | Inpatient (IN) | payer MEDICARE ==
--- NOTE | 2018-10-30 12:36 | ED PDOC ---
Arrival/HPI - General Chief Complaint: Cough, Cold, Congestion Time Seen by Provider: 10/30/18 12:21 Historian: Family, EMS - Critical Care Critical Care Minutes: 45 minutes - History of Present Illness Narrative History of Present Illness (Text): 10/30/18 12:34 88 y/o F w/ h/o Alzheimer dementia presenting to the Emergency Department with 2 day history of productive cough and dyspnea. Per family, the patient had been experiencing difficulty swallowing food and had developed coarse breathing that was audible whenever she cough. Patient's denies any fevers, chills, recent travels, abdominal pain, chest pain, syncopal episodes or bleeding. The patient has not seen her PCP within the time period of her developing symptoms. Daughter and are the primary care takers of the patient with the patient remaining bed bound. PCP: Dr. 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) - Renal Hx Renal Disorder: No - Endocrine/Metabolic Hx Endocrine Disorders: No - Hematological/Oncological Hx Blood Disorders: No - Integumentary Hx Dermatological Disorder: No - Musculoskeletal/Rheumatological Hx Musculoskeletal Disorders: Yes - Gastrointestinal Hx Crohn's Disease: Yes - Genitourinary/Gynecological Hx Incontinence: Yes - Psychiatric Hx Emotional Abuse: No Hx Physical Abuse: No Hx Substance Use: No - Surgical History Other/Comment: colon sx in 8 yrs ago - Anesthesia Hx Anesthesia: Yes Hx Anesthesia Reactions: No Hx Malignant Hyperthermia: No - Suicidal Assessment Feels Threatened In Home Enviroment: No Family/Social History - Physician Review Nursing Documentation Reviewed: Yes Family/Social History: Unknown Family HX Smoking Status: Never Smoked Hx Alcohol Use: No Hx Substance Use: No Hx Substance Use Treatment: No Allergies/Home Meds Allergies/Adverse Reactions: Allergies No Known Allergies Allergy (Verified 10/30/18 12:22) Home Medications: Home Meds Medication Instructions Recorded Confirmed RX: No Known Home Med 12/29/18 12/29/18 Review of Systems - Review of Systems Systems not reviewed;Unavailable: Dementia Respiratory: SOB, Cough Physical Exam Temperature: Afebrile Blood Pressure: Normal Pulse: Regular Respiratory Rate: Normal Appearance: Positive for: Well-Appearing, Non-Toxic, Comfortable Pain Distress: None Mental Status: Positive for: other (Demented) - Systems Exam Head: Present: Atraumatic, Normocephalic, Other (Ulceration noted on hallux of R ear; non-bleeding/slightly erythemaous) Pupils: Present: PERRL Extroacular Muscles: Present: EOMI Mouth: Present: Dry Respiratory/Chest: Present: Decreased Breath Sounds, Rhonchi, Other (Coarse breath sounds heard in anterior lung box b/l) Cardiovascular: Present: Regular Rate and Rhythm, Normal S1, S2 Abdomen: Present: Normal Bowel Sounds. No: Tenderness, Distention Rectal: Present: Other (Grade II sacral ulcer) Back: Present: Decubitus Ulcer (grade II sacral decubiti ulcers present at sacrum) Upper Extremity: Present: Normal Inspection, Capillary Refill < 2s Lower Extremity: Present: Other (grade II decubitus ulcer present on L hip, superficial ulcer noted on left heel). No: Edema Neurological: Present: GCS=15 Skin: Present: Warm, Dry, Normal Color Psychiatric: Present: Other (Demented) Medical Decision Making ED Course and Treatment: 10/30/18 12:55 Impression 88F w/ h/o Alzeheimer's dementia presenting with symptoms of cough Differential Diagnoses Include But Is Not Limited To: --PNA --Influenza --Bronchitis Plan --Labs --CXR --Rapid Flu --Adams Catheter --Blood Culture --UA --Rocephin --Azithromycin --Lactated Ringers --Urine Culture --Reassess & disposition Progress Notes 10/30/18 13:23 Labs reviewed with leukocytosis noted to 14.7 with shift as well as hypotension(SBP 80s) and hypoxia. Code Sepsis called. 10/30/18 13:[address] Jim Patterson(PCP) who requests for Dr. Moyer to be notified of patient for possible admission to her service. Call placed to Dr. Moyer. 10/30/18 14:[address] Carmina Macedo(covering for Dr. Moyer) who accepts patient onto his service. He requests Dr. Ramirez(pulmonology) for consult. - Lab Interpretations I have reviewed the lab results: Yes - RAD Interpretation Narrative RAD Interpretations (Text): 10/30/2018 13:10 Chest X-ray IMPRESSION: Hazy change in the right lung may represent open infiltrates. Dictator: Lars Rdaer MD Disposition/Present on Arrival - Present on Arrival Any Indicators Present on Arrival: Yes History of DVT/PE: No History of Uncontrolled Diabetes: No Urinary Catheter: No History of Decub. Ulcer: Yes (Sacral & L hip) History Surgical Site Infection Following: None - Disposition Have Diagnosis and Disposition been Completed?: Yes Diagnosis: Pneumonia, Thrombocytosis, Hypokalemia Disposition: HOSPITALIZED Disposition Time: 13:57 Patient Plan: Admission Patient Problems: Current Active Problems Problem Status Onset Hypokalemia Acute Pneumonia Acute Psoas abscess, right Acute Thrombocytosis Acute Condition: GUARDED
[2018-10-30] MEDS ORDERED: Sodium Chloride 0.9% 1,000 ML IV STA (12:51)
[2018-10-30 13:06] LABS: BASO # 0.03 K/mm3 (0.0-2.0); BASO % 0.2 % (0.0-3.0); EOS % 0.1 % (1.5-5.0); GRAN # 12.33 (1.4-6.5); GRAN % 83.8 % (50.0-68.0); HEMOGLOBIN 8.6 g/dL (12.0-16.0); LYMPH # 1.4 (1.2-3.4); LYMPH % 9.6 % (22.0-35.0); MEAN CELL VOLUME 85.8 fl (80.0-105.0); MEAN CORPUSCULAR HEMOGLOBIN 26.6 pg (25.0-35.0); MEAN PLATELET VOLUME 8.3 fl (7.0-11.0); MONO # 0.9 (0.1-0.6); MONO % 6.3 % (1.0-6.0); RBC 3.23 10^6/uL (3.5-6.1); RED CELL DISTRIBUTION WIDTH 18.5 % (11.5-14.5); WHITE BLOOD COUNT 14.7 10^3/uL (4.5-11.0)
[2018-10-30 13:09] LABS: VENOUS BLOOD GAS BASE EXCESS -2.3 mmol/L (0.0-2.0); VENOUS BLOOD GAS PO2 34 mm/Hg (30-55); VENOUS BLOOD PH 7.38 (7.32-7.43)
[2018-10-30 13:12] LABS: INR 1.25; PARTIAL THROMBOPLASTIN TIME 26.2 Seconds (25.1-36.5); PROTHROMBIN TIME 14.4 SECONDS (9.4-12.5)
--- NOTE | 2018-10-30 13:13 | RAD ---
Date of service: 10/30/2018 HISTORY: Sepsis Patient COMPARISON: Chest radiograph dated 09/22/2018. FINDINGS: LUNGS: Stable chronic prominence of the bilateral interstitial markings. Hazy change in the right lung may represent developing infiltrates PLEURA: No significant pleural effusion identified, no pneumothorax apparent. CARDIOVASCULAR: Aortic atherosclerotic calcifications. Cardiomediastinal silhouette within normal limits. OSSEOUS STRUCTURES: Unchanged. VISUALIZED UPPER ABDOMEN: Inferior vena cava filter. OTHER FINDINGS: None. IMPRESSION: Hazy change in the right lung may represent open infiltrates.
[2018-10-30 13:22] LABS: ALB/GLOB RATIO 0.7 (1.1-1.8); ALBUMIN 2.7 g/dL (3.0-4.8); ALT/SGPT 42 U/L (7-56); AST/SGOT 54 U/L (14-36); BLOOD UREA NITROGEN 21 mg/dL (7-21); CALCIUM 9.2 mg/dL (8.4-10.5); GFR NON-AFRICAN AMERICAN > 60
[2018-10-30] MEDS ORDERED: Azithromycin 500MG/NS 250ml 500 MG/250 ML BAG IVPB STA (13:27)
[2018-10-30 13:28] LABS: B-TYPE NATRIURETIC PEPTIDE 2930 pg/mL (0-450); TROPONIN I < 0.01 ng/mL
[2018-10-30] MEDS ORDERED: cefTRIAXone 1 gm 1 GM/100 ML BAG IVPB STA (13:31)
[2018-10-30 14:55] LABS: URINE APPEARANCE CLEAR (CLEAR); URINE BILIRUBIN NEGATIVE (NEGATIVE); URINE BLOOD NEGATIVE (NEGATIVE); URINE COLOR YELLOW (YELLOW); URINE GLUCOSE (UA) NEGATIVE (NEGATIVE); URINE LEUKOCYTE ESTERASE TRACE Leu/uL (NEGATIVE); URINE PROTEIN TRACE mg/dL (<30 mg/dL)
[2018-10-30 16:14] LABS: VENOUS BLOOD GAS BASE EXCESS -5.7 mmol/L (0.0-2.0); VENOUS BLOOD GAS PO2 72 mm/Hg (30-55); VENOUS BLOOD PH 7.34 (7.32-7.43)
--- NOTE | 2018-10-30 17:46 | CP.PCM.CON ---
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 Daughter states that patient is bed bound and is taken care of by daughter and . Daughter became concerned when patient developed a slight cough when eating and stopped wanting to eat and drink last few days. Daughter states that patient received flu shot this year, and has been afebrile without chills, diaphoresis or vomiting at home. Patient has had good urine output per daughter. Patient at this time is non-verbal and unable to provide any history or ROS, likely due to baseline Alzheimers. No further details were able to be a scertained due to patient clinical condition. Of note, patient's daughter signed DNR form on last admission 6 weeks prior. PMH: as above PSH: right eye surgery SH: family denies EtOH, tobacco or illicit drug use FH: noncontributory Meds: denied by family Allergies: NKA Review of Systems - Review of Systems Review of Systems: 12 point ROS unobtainable due to clinical condition Past Patient History - Infectious Disease Hx of Infectious Diseases: None - Tetanus Immunizations Tetanus Immunization: Unknown - Past Social History Smoking Status: Never Smoked - CARDIAC Hx Cardiac Disorders: No - PULMONARY Hx Respiratory Disorders: No - NEUROLOGICAL Hx Alzheimer's Disease: Yes (10 yrs) - HEENT Hx HEENT Problems: Yes (blind in right eye) - RENAL Hx Chronic Kidney Disease: No - ENDOCRINE/METABOLIC Hx Endocrine Disorders: No - HEMATOLOGICAL/ONCOLOGICAL Hx Blood Disorders: No - INTEGUMENTARY Hx Dermatological Problems: No - MUSCULOSKELETAL/RHEUMATOLOGICAL Hx Musculoskeletal Disorders: Yes - GASTROINTESTINAL Hx Crohn's Disease: Yes - GENITOURINARY/GYNECOLOGICAL Hx Incontinence: Yes - PSYCHIATRIC Hx Emotional Abuse: No Hx Physical Abuse: No Hx Substance Use: No - SURGICAL HISTORY Other/Comment: colon sx in 8 yrs ago - ANESTHESIA Hx Anesthesia: Yes Hx Anesthesia Reactions: No Hx Malignant Hyperthermia: No Meds Allergies/Adverse Reactions: Allergies Allergy/AdvReac Type Severity Reaction Status Date / Time No Known Allergies Allergy Verified 10/30/18 12:22 Physical Exam - Additional Findings Additional findings: - Constitutional Appears: No Acute Distress, Cachectic, Chronically Ill Additional comments: physical exam limited by patient unable to comply with some instructions. Concentrated urine in urinal, no gross blood - Head Exam Head Exam: ATRAUMATIC, NORMOCEPHALIC - Eye Exam Additional comments: right eye closed and blind 2/2 trauma years ago, left eye reactive to light, unable to follow commands for extraocular muscle examination - ENT Exam ENT Exam: Mucous Membranes Dry, Normal Oropharynx Additional comments: poor dentition - Neck Exam Neck exam: Positive for: Normal Inspection. Negative for: Lymphadenopathy - Respiratory Exam Respiratory Exam: Clear to Auscultation Bilateral. absent: Rales, Rhonchi, Wheezes - Cardiovascular Exam Cardiovascular Exam: Tachycardia, +S1, +S2. absent: Gallop, Rubs - GI/Abdominal Exam GI & Abdominal Exam: Normal Bowel Sounds, Soft. absent: Distended, Tenderness - Extremities Exam Extremities exam: Positive for: normal capillary refill, pedal pulses present. Negative for: calf tenderness, joint swelling, pedal edema Additional comments: left heel stage 2 pressure ulcer, clean based, dressing in place - Back Exam Back exam: absent: rash noted - Neurological Exam Additional comments: awake, not alert, nonverbal, moves all extremities spontaneously, left eye reactive to light - Skin Skin Exam: Dry, Warm Additional comments: bilateral stage 2 posterior sacral iliac spine/ischial ulcers, dressing in place Results - Vital Signs Recent Vital Signs: Last Vital Signs Temp 97.9 F 10/30/18 17:17 Pulse 113 H 10/30/18 17:17 Resp 20 10/30/18 17:17 BP 125/91 H 10/30/18 17:17 Pulse Ox 99 10/30/18 17:17 - Labs Result Diagrams: 10/30/18 12:50 10/30/18 12:50 Labs: Laboratory Results - last 24 hr 10/30/18 10/30/18 10/30/18 12:50 12:50 12:50 WBC 14.7 H D RBC 3.23 L Hgb 8.6 L D Hct 27.7 L MCV 85.8 MCH 26.6 MCHC 31.0 RDW 18.5 H Plt Count 623 H MPV 8.3 Gran % 83.8 H Lymph % (Auto) 9.6 L Runnels % (Auto) 6.3 H Eos % (Auto) 0.1 L Baso % (Auto) 0.2 Gran # 12.33 H Lymph # (Auto) 1.4 Runnels # (Auto) 0.9 H Eos # (Auto) 0.0 Baso # (Auto) 0.03 PT 14.4 H INR 1.25 APTT 26.2 pO2 34 VBG pH 7.38 VBG pCO2 38.0 L VBG HCO3 22.5 VBG Total CO2 23.7 VBG O2 Sat (Calc) 65.4 H VBG Base Excess -2.3 L VBG Potassium 3.2 L Sodium 132.0 Chloride 100.0 Glucose 136 H Lactate 3.0 H FiO2 21.0 Potassium Carbon Dioxide Anion Gap BUN Creatinine Est GFR ( Amer) Est GFR (Non-Af Amer) Random Glucose Calcium Phosphorus Magnesium Total Bilirubin AST ALT Alkaline Phosphatase Troponin I NT-Pro-B Natriuret Pep Total Protein Albumin Globulin Albumin/Globulin Ratio Venous Blood Potassium 3.2 L Urine Color Urine Appearance Urine pH Ur Specific Avant Urine Protein Urine Glucose (UA) Urine Ketones Urine Blood Urine Nitrate Urine Bilirubin Urine Urobilinogen Ur Leukocyte Esterase Urine RBC Urine WBC Ur Epithelial Cells 10/30/18 10/30/18 10/30/18 12:50 14:43 16:00 WBC RBC Hgb Hct MCV MCH MCHC RDW Plt Count MPV Gran % Lymph % (Auto) Runnels % (Auto) Eos % (Auto) Baso % (Auto) Gran # Lymph # (Auto) Runnels # (Auto) Eos # (Auto) Baso # (Auto) PT INR APTT pO2 72 H VBG pH 7.34 VBG pCO2 36.0 L VBG HCO3 19.4 L VBG Total CO2 20.5 L VBG O2 Sat (Calc) 95.1 H VBG Base Excess -5.7 L VBG Potassium 3.6 Sodium 132 133.0 Chloride 101 102.0 Glucose 128 H Lactate 4.7 H* FiO2 21.0 Potassium 3.3 L Carbon Dioxide 23 Anion Gap 12 BUN 21 Creatinine 0.5 L Est GFR ( Amer) > 60 Est GFR (Non-Af Amer) > 60 Random Glucose 134 H Calcium 9.2 Phosphorus 3.2 Magnesium 2.4 H Total Bilirubin 0.7 AST 54 H D ALT 42 Alkaline Phosphatase 150 H D Troponin I < 0.01 D NT-Pro-B Natriuret Pep 2930 H Total Protein 6.6 Albumin 2.7 L Globulin 3.9 Albumin/Globulin Ratio 0.7 L Venous Blood Potassium 3.6 Urine Color Yellow Urine Appearance Clear Urine pH 6.0 Ur Specific Avant 1.020 Urine Protein Trace H Urine Glucose (UA) Negative Urine Ketones Negative Urine Blood Negative Urine Nitrate Negative Urine Bilirubin Negative Urine Urobilinogen 1.0 H Ur Leukocyte Esterase Trace H Urine RBC 2 - 5 H Urine WBC 5 - 10 H Ur Epithelial Cells 6 - 8 H Assessment & Plan - Assessment and Plan (Free Text) Assessment: Ms. 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 Patient received LR IVF after an original lactate was 3.0. Subsequent Lactate was found to be 4.7. Although patient meets sepsis criteria (tachycardic at 110 with slight leukocytosis 14.7 and possible source with R HAP), patient is hemodynamically stable and is not current candidate for ICU placement. Plan: Neuro -Awake but not alert, responds to painful stimuli. -Continue to monitor Cardiovascular Sepsis -Maintain MAP >65 -LR discontinued. IVF NS begun -Keep normotensive Pulmonary CXR 10/30: LUNGS: Stable chronic prominence of the bilateral interstitial markings. Hazy change in the right lung may represent developing infiltrates. No significant pleural effusion identified, no pneumothorax apparent. Aortic atherosclerotic calcifications. Inferior vena cava filter. -Rocephin and Azithro given in ED -Maintain O2 sat >92% -Pulm consult - Dr. Ramirez - recs appreciated Heme -Monitor BP; currently stable -Heparin and SCDs for DVT prophylaxis Dermatological -Heel and decubitus ulcerations -Wound care consulted Infectious Disease -Urine, wound and blood cultures pending Renal -Maintain normal electrolytes - HypoK, HyperMg - replete as necessary - f/u AM labs Patient seen, case reviewed and plan approved by Dr. Nargis Mcrae. Gilles Hinojosa, PGY-1 <Sheridan Mcrae - Last Filed: 10/31/18 17:38> Meds - Medications Medications: Current Medications Albuterol/Ipratropium (Duoneb 3 Mg/0.5 Mg (3 Ml) Ud) 3 ml IH QIDRESP BIRD Last Admin: 10/31/18 11:04 Dose: 3 ml Ceftriaxone Sodium (Rocephin 1 Gram Ivpb) 1 gm in 100 mls @ 100 mls/hr IVPB DAILY BIRD; Protocol Last Admin: 10/31/18 15:17 Dose: 100 mls/hr Azithromycin 250 mg/ Sodium (Chloride) 250 mls @ 167 mls/hr IVPB DAILY BIRD; Protocol Last Admin: 10/31/18 10:08 Dose: 167 mls/hr Dextrose/Sodium Chloride (Dextrose 5%/0.9% Ns 1000 Ml) 1,000 mls @ 100 mls/hr IV .Q10H BIRD Last Admin: 10/31/18 15:24 Dose: 100 mls/hr Pantoprazole Sodium (Protonix Inj) 40 mg IVP DAILY BIRD Last Admin: 10/31/18 15:17 Dose: 40 mg Sodium Hypochlorite (Dakins Solution 0.25%) 0 ml TOP DAILY BIRD Last Admin: 10/31/18 13:26 Dose: 1 applic Results - Vital Signs Recent Vital Signs: Last Vital Signs Temp 98.4 F 10/31/18 17:31 Pulse 111 H 10/31/18 17:31 Resp 18 10/31/18 17:31 BP 109/65 10/31/18 17:31 Pulse Ox 98 10/31/18 06:00 - Labs Result Diagrams: 10/31/18 08:15 10/31/18 08:15 Labs: Laboratory Results - last 24 hr 10/30/18 10/31/18 10/31/18 18:25 02:00 08:15 WBC 11.8 H RBC 3.01 L Hgb 8.0 L Hct 25.8 L MCV 85.7 MCH 26.6 MCHC 31.0 RDW 18.5 H Plt Count 451 H MPV 7.8 Gran % 82.0 H Lymph % (Auto) 11.2 L Runnels % (Auto) 6.2 H Eos % (Auto) 0.5 L Baso % (Auto) 0.1 Gran # 9.66 H Lymph # (Auto) 1.3 Runnels # (Auto) 0.7 H Eos # (Auto) 0.1 Baso # (Auto) 0.01 Sodium Potassium Chloride Carbon Dioxide Anion Gap BUN Creatinine Est GFR ( Amer) Est GFR (Non-Af Amer) Random Glucose Lactic Acid 1.9 Calcium Phosphorus Magnesium Total Bilirubin AST ALT Alkaline Phosphatase Total Protein Albumin Globulin Albumin/Globulin Ratio Influenza Typ A,B (EIA) Negative for flu a/b 10/31/18 08:15 WBC RBC Hgb Hct MCV MCH MCHC RDW Plt Count MPV Gran % Lymph % (Auto) Runnels % (Auto) Eos % (Auto) Baso % (Auto) Gran # Lymph # (Auto) Runnels # (Auto) Eos # (Auto) Baso # (Auto) Sodium 131 L Potassium 3.2 L Chloride 104 Carbon Dioxide 22 Anion Gap 9 L BUN 16 Creatinine 0.4 L Est GFR ( Amer) > 60 Est GFR (Non-Af Amer) > 60 Random Glucose 117 H Lactic Acid Calcium 9.4 Phosphorus 2.8 Magnesium 2.1 Total Bilirubin 0.4 AST 33 ALT 39 Alkaline Phosphatase 113 Total Protein 5.7 L Albumin 2.4 L Globulin 3.4 Albumin/Globulin Ratio 0.7 L Influenza Typ A,B (EIA) Addendum Addendum: 10/30/18 19:37 ICU Attending Addendum Patient seen and examined in the ED on 10/30. Case reviewed on round with housestaff. 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 Initially hypotensive however responded will to immediate fluid resiscation. LAV did rise however BP much improved and cliniclly she alsmot at her baseline mentation. Lac may be affer by volume of LR Would ensure 30cc/kg IVF hydration broad empiric abx follow goldberg cultures not indicated for ICU at this time given good hemdynamic response to fluid resusiciation Rest of care as above Sheridan Mcrae MD Pulmonary Critical Care and Sleep Medicine
[2018-10-30 18:46] VITALS: BMI 23.1
[2018-10-30] MEDS ORDERED: Influenza Vaccine 60 mcg/0.5 mL SYR (4YR UP) IM ONE (18:47)
[2018-10-30] MEDS ORDERED: Pneumococcal 23-Valent Vaccine IM ONE (18:47)
--- NOTE | 2018-10-30 18:57 | PCM.SEPTIC ---
Sepsis Progress Note - Reassessment Type Date of Evaluation: 10/30/18 Time of Evaluation: 18:57 Reassessment Type: Non-invasive reassessment - Non Invasive Reassessment Were the most recent vital sign reviewed: Yes Vital Sign (Latest): Temp Pulse Resp BP Pulse Ox 97.9 F 105 H 19 111/73 98 10/30/18 18:30 10/30/18 18:30 10/30/18 18:30 10/30/18 18:30 10/30/18 18:30 Cardiovascular: Yes: Tachycardia Respiratory: Yes: Normal Breath Sounds. No: Accessory Muscle Use, Respiratory Distress Capillary Refill: Normal (Less than 2 sec) Pulses: Normal Radial, Normal Dorsalis Pedis Skin: Warm, Dry
[2018-10-30] MEDS: Dextrose 5%/0.45% NS 1,000 ML IV SCH (20:23)
--- NOTE | 2018-10-30 23:28 | CARD ---
APPROVED REPORT Date of service: 10/30/2018 EKG Measurement Heart [id number] <Conclusion> Sinus rhythm with short KS Low voltage QRS Nonspecific T wave abnormality Prolonged QT Abnormal ECG
--- NOTE | 2018-10-31 01:31 | HP ---
DATE OF EXAM: 10/30/2018 The patient is an 88-year-old female, brought in by the family because the patient is not eating and coughing. HISTORY OF PRESENT ILLNESS: An 88-year-old female, bedridden, being taking care by the and her daughter. She seems has dementia, not eating, not ambulating, brought in because the patient is not eating for the last week and also she has been coughing for the last 3 days. There was no any other complaint. No fever. No chills. No vomiting. No other reported complaint. PAST MEDICAL HISTORY: As I mentioned, dementia and bedridden. ALLERGIES: NO KNOWN ALLERGIES. MEDICATIONS: There is no really medication reported here. SOCIAL HISTORY: She lives with her daughter and her , taking care of the patient. FAMILY HISTORY: Not able to obtain. REVIEW OF SYSTEMS: Cannot be obtained. The patient is nonverbal. PHYSICAL EXAMINATION GENERAL: The patient is bedridden. She is not in respiratory distress. She is nonverbal. She is blind in one eye. VITAL SIGNS: Temperature is 97, heart rate 111, blood pressure 117/67, respirations 22 and saturating 94% on room air. HEAD AND NECK: Normal except the right eye she does not see. She is cachectic. She is weak. LUNGS: Clear. Diminished breath sounds. CARDIAC: First sound and second sound normal. ABDOMEN: Nontender. EXTREMITIES: Noted for bilateral hip and ischial stage II to stage III sacral decubitus ulcerations and she moves, but she does not follow commands. LABORATORY DATA: Shows a white count 14.7, hemoglobin 8.6, hematocrit 27.7, and platelets 623. Chemistries: Sodium 132, potassium 3.3, chloride 101, bicarb 23, BUN 21, creatinine 0.5, blood sugar 134, magnesium 2.4. AST is elevated 54. ALT is 42. Alkaline phosphatase is 150. Troponin is negative. ProBNP is 2930. Chest x-ray shows possible pneumonia. IMPRESSION: This is an 88-year-old female, demented, bedridden, has been coughing with poor p.o. intake, with low potassium on laboratory. Chest x-ray shows possible pneumonia and also presence of decubitus in sacral and ischial area and we will admit the patient. 1. For possible community-acquired pneumonia, we will give the patient Rocephin and Zithromax and nebulizer treatment. 2. Multiple decubitus ulcerations. We are going to get wound care consult and surgical consult. 3. Poor p.o. intake. We will get Dr. Downing to evaluate the p.o. intake, possible any feeding tube. At this time, we will continue current therapy, Protonix, deep venous thrombosis prophylaxis, also the patient has a filter, we will continue therapy. We will follow up on the patient and monitor her clinically. Replace potassium and follow up with other consultants. Clarence Macedo MD
[2018-10-31] MEDS: Albuterol-Ipratrop 3 mg / 0.5 (3 ml) UD IH SCH ×3 (07:32→19:28)
--- NOTE | 2018-10-31 08:15 | CP.PCM.CON ---
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 General surgery consulted for multiple decubiti. Patient is non-verbal and unable to provide history, ROS. PMH: as stated above PSH: right eye surgery FH: non-contributory Allergies: NKDA Review of Systems - Review of Systems Systems not reviewed;Unavailable: Dementia Past Patient History - Infectious Disease Hx of Infectious Diseases: None - Tetanus Immunizations Tetanus Immunization: Unknown - Past Social History Smoking Status: Never Smoked - CARDIAC Hx Cardiac Disorders: No - PULMONARY Hx Respiratory Disorders: No - NEUROLOGICAL Hx Alzheimer's Disease: Yes (10 yrs) - HEENT Hx HEENT Problems: Yes (blind in right eye) - RENAL Hx Chronic Kidney Disease: No - ENDOCRINE/METABOLIC Hx Endocrine Disorders: No - HEMATOLOGICAL/ONCOLOGICAL Hx Blood Disorders: No - INTEGUMENTARY Hx Dermatological Problems: No - MUSCULOSKELETAL/RHEUMATOLOGICAL Hx Musculoskeletal Disorders: Yes - GASTROINTESTINAL Hx Crohn's Disease: Yes - GENITOURINARY/GYNECOLOGICAL Hx Incontinence: Yes - PSYCHIATRIC Hx Emotional Abuse: No Hx Physical Abuse: No Hx Substance Use: No - SURGICAL HISTORY Other/Comment: colon sx in 8 yrs ago - ANESTHESIA Hx Anesthesia: Yes Hx Anesthesia Reactions: No Hx Malignant Hyperthermia: No Meds Allergies/Adverse Reactions: Allergies Allergy/AdvReac Type Severity Reaction Status Date / Time No Known Allergies Allergy Verified 10/30/18 12:22 - Medications Medications: Current Medications Albuterol/Ipratropium (Duoneb 3 Mg/0.5 Mg (3 Ml) Ud) 3 ml IH QIDRESP [facility] Last Admin: 10/31/18 07:32 Dose: 3 ml Dextrose/Sodium Chloride (Dextrose 5%/0.45% Ns 1000 Ml) 1,000 mls @ 75 mls/hr IV .[id number] [facility] Last Admin: 10/30/18 20:23 Dose: 75 mls/hr Ceftriaxone Sodium (Rocephin 1 Gram Ivpb) 1 gm in 100 mls @ 100 mls/hr IVPB DAILY [facility]; Protocol Azithromycin 250 mg/ Sodium (Chloride) 250 mls @ 167 mls/hr IVPB DAILY [facility]; Protocol Sodium Hypochlorite (Dakins Solution 0.25%) 0 ml TOP DAILY [facility] Physical Exam - Constitutional Appears: Non-toxic, Chronically Ill - Head Exam Head Exam: ATRAUMATIC, NORMOCEPHALIC - Eye Exam Eye Exam: Normal appearance - ENT Exam ENT Exam: Mucous Membranes Moist - Respiratory Exam Respiratory Exam: NORMAL BREATHING PATTERN. absent: Accessory Muscle Use - Cardiovascular Exam Cardiovascular Exam: +S1, +S2 - GI/Abdominal Exam GI & Abdominal Exam: Soft. absent: Tenderness - Extremities Exam Additional comments: Stage II sacral decubitus ( approx 5cm x3cm) Stage III left hip ulcers b/l (left hip x 2 ulcers both measuring approx [id number] 0.25cm right aprrox 7cm x 4.5cm x 0.25cm) Necrotic tissue bases - Neurological Exam Neurological exam: Alert, Oriented x3 - Psychiatric Exam Psychiatric exam: Normal Mood Results - Vital Signs Recent Vital Signs: Last Vital Signs Temp 98.7 F 10/31/18 06:00 Pulse 92 H 10/31/18 07:35 Resp 18 10/31/18 06:00 BP 91/53 L 10/31/18 06:00 Pulse Ox 98 10/31/18 06:00 - Labs Result Diagrams: 10/30/18 12:50 10/30/18 12:50 Labs: Laboratory Results - last 24 hr 10/30/18 10/30/18 10/30/18 12:50 12:50 12:50 WBC 14.7 H D RBC 3.23 L Hgb 8.6 L D Hct 27.7 L MCV 85.8 MCH 26.6 MCHC 31.0 RDW 18.5 H Plt Count 623 H MPV 8.3 Gran % 83.8 H Lymph % (Auto) 9.6 L [place] % (Auto) 6.3 H Eos % (Auto) 0.1 L Baso % (Auto) 0.2 Gran # 12.33 H Lymph # (Auto) 1.4 [place] # (Auto) 0.9 H Eos # (Auto) 0.0 Baso # (Auto) 0.03 PT 14.4 H INR 1.25 APTT 26.2 pO2 34 VBG pH 7.38 VBG pCO2 38.0 L VBG HCO3 22.5 VBG Total CO2 23.7 VBG O2 Sat (Calc) 65.4 H VBG Base Excess -2.3 L VBG Potassium 3.2 L Sodium 132.0 Chloride 100.0 Glucose 136 H Lactate 3.0 H FiO2 21.0 Potassium Carbon Dioxide Anion Gap BUN Creatinine Est GFR ( Amer) Est GFR (Non-Af Amer) Random Glucose Lactic Acid Calcium Phosphorus Magnesium Total Bilirubin AST ALT Alkaline Phosphatase Troponin I NT-Pro-B Natriuret Pep Total Protein Albumin Globulin Albumin/Globulin Ratio Venous Blood Potassium 3.2 L Urine Color Urine Appearance Urine pH Ur Specific [place] Urine Protein Urine Glucose (UA) Urine Ketones Urine Blood Urine Nitrate Urine Bilirubin Urine Urobilinogen Ur Leukocyte Esterase Urine RBC Urine WBC Ur Epithelial Cells Influenza Typ A,B (EIA) 10/30/18 10/30/18 10/30/18 12:50 14:43 16:00 WBC RBC Hgb Hct MCV MCH MCHC RDW Plt Count MPV Gran % Lymph % (Auto) [place] % (Auto) Eos % (Auto) Baso % (Auto) Gran # Lymph # (Auto) [place] # (Auto) Eos # (Auto) Baso # (Auto) PT INR APTT pO2 72 H VBG pH 7.34 VBG pCO2 36.0 L VBG HCO3 19.4 L VBG Total CO2 20.5 L VBG O2 Sat (Calc) 95.1 H VBG Base Excess -5.7 L VBG Potassium 3.6 Sodium 132 133.0 Chloride 101 102.0 Glucose 128 H Lactate 4.7 H* FiO2 21.0 Potassium 3.3 L Carbon Dioxide 23 Anion Gap 12 BUN 21 Creatinine 0.5 L Est GFR ( Amer) > 60 Est GFR (Non-Af Amer) > 60 Random Glucose 134 H Lactic Acid Calcium 9.2 Phosphorus 3.2 Magnesium 2.4 H Total Bilirubin 0.7 AST 54 H D ALT 42 Alkaline Phosphatase 150 H D Troponin I < 0.01 D NT-Pro-B Natriuret Pep 2930 H Total Protein 6.6 Albumin 2.7 L Globulin 3.9 Albumin/Globulin Ratio 0.7 L Venous Blood Potassium 3.6 Urine Color Yellow Urine Appearance Clear Urine pH 6.0 Ur Specific [place] 1.020 Urine Protein Trace H Urine Glucose (UA) Negative Urine Ketones Negative Urine Blood Negative Urine Nitrate Negative Urine Bilirubin Negative Urine Urobilinogen 1.0 H Ur Leukocyte Esterase Trace H Urine RBC 2 - 5 H Urine WBC 5 - 10 H Ur Epithelial Cells 6 - 8 H Influenza Typ A,B (EIA) 10/30/18 10/31/18 18:25 02:00 WBC RBC Hgb Hct MCV MCH MCHC RDW Plt Count MPV Gran % Lymph % (Auto) [place] % (Auto) Eos % (Auto) Baso % (Auto) Gran # Lymph # (Auto) [place] # (Auto) Eos # (Auto) Baso # (Auto) PT INR APTT pO2 VBG pH VBG pCO2 VBG HCO3 VBG Total CO2 VBG O2 Sat (Calc) VBG Base Excess VBG Potassium Sodium Chloride Glucose Lactate FiO2 Potassium Carbon Dioxide Anion Gap BUN Creatinine Est GFR ( Amer) Est GFR (Non-Af Amer) Random Glucose Lactic Acid 1.9 Calcium Phosphorus Magnesium Total Bilirubin AST ALT Alkaline Phosphatase Troponin I NT-Pro-B Natriuret Pep Total Protein Albumin Globulin Albumin/Globulin Ratio Venous Blood Potassium Urine Color Urine Appearance Urine pH Ur Specific [place] Urine Protein Urine Glucose (UA) Urine Ketones Urine Blood Urine Nitrate Urine Bilirubin Urine Urobilinogen Ur Leukocyte Esterase Urine RBC Urine WBC Ur Epithelial Cells Influenza Typ A,B (EIA) Negative for flu a/b Assessment & Plan - Assessment and Plan (Free Text) Assessment: 88F with multiple decubiti left hip x2 right hip x1 Sacral decubiti x1 Plan: -For now apply Dakin's solution to affected site with wet to dry dressings -Local wound care -Change dressings daily -Unsure whether patient is on blood thinners -Will consider bedside debridement -Will follow -D/w Dr. Ashok Rangel PGY3
[2018-10-31 08:42] LABS: BASO # 0.01 K/mm3 (0.0-2.0); BASO % 0.1 % (0.0-3.0); EOS # 0.1 (0.0-0.7); EOS % 0.5 % (1.5-5.0); GRAN # 9.66 (1.4-6.5); LYMPH # 1.3 (1.2-3.4); LYMPH % 11.2 % (22.0-35.0); MEAN CELL VOLUME 85.7 fl (80.0-105.0); MEAN CORPUSCULAR HEMOGLOBIN 26.6 pg (25.0-35.0); MEAN PLATELET VOLUME 7.8 fl (7.0-11.0); MONO # 0.7 (0.1-0.6); MONO % 6.2 % (1.0-6.0); RBC 3.01 10^6/uL (3.5-6.1); RED CELL DISTRIBUTION WIDTH 18.5 % (11.5-14.5); WHITE BLOOD COUNT 11.8 10^3/uL (4.5-11.0)
[2018-10-31 09:04] LABS: ALB/GLOB RATIO 0.7 (1.1-1.8); ALBUMIN 2.4 g/dL (3.0-4.8); ALT/SGPT 39 U/L (7-56); AST/SGOT 33 U/L (14-36); BLOOD UREA NITROGEN 16 mg/dL (7-21); CALCIUM 9.4 mg/dL (8.4-10.5); GFR NON-AFRICAN AMERICAN > 60
[2018-10-31] MEDS ORDERED: Potassium Chloride 40 MEQ in Dextrose 5%/0.45% NS 1,000 ML IV SCH (10:00)
[2018-10-31] MEDS: Dextrose 5%/0.45% NS 1,000 ML IV SCH (10:08)
[2018-10-31] MEDS: Azithromycin 250 MG in Sodium Chloride 0.9% 250 ML IVPB SCH (10:08)
[2018-10-31] MEDS: Dakin's Topical 0.25%-Half Strength (480 ml) TOP SCH (13:26)
--- NOTE | 2018-10-31 13:29 | CP.PCM.PCO ---
Physician Communication Note - Physician Communication Note Physician Communication Note: Cons Rx Decub/Ulcers/Bedside debridement possible if family OK
[2018-10-31] MEDS: cefTRIAXone 1 gm 1 GM/100 ML BAG IVPB SCH (15:17)
[2018-10-31] MEDS: Dextrose 5%/0.9% NS 1,000 ML IV SCH (15:24)
--- NOTE | 2018-10-31 18:09 | CON ---
DATE OF CONSULTATION: 10/31/2018 REFERRING PHYSICIAN: Dr. Patterson REASON FOR CONSULTATION: Shortness of breath. HISTORY OF PRESENT ILLNESS: This is an 88-year-old female with past medical history significant for dementia, decubiti ulcer, right eye blindness, history of Crohn disease, brought in from the [place] [facility] with feeling weak, had some cough, shortness of breath, was admitted for further workup. Presently lying in the bed, arousable. Follows simple commands. No hemoptysis, hematemesis or hematuria. PAST MEDICAL HISTORY: As per history of present illness. FAMILY HISTORY: No significant cardiopulmonary disease reported. SOCIAL HISTORY: Nonsmoker. Nondrinker. MEDICATIONS: She is on Zithromax 250 mg daily. She is on Dakin solution 0.25% to affected area. Getting IV fluid D5 normal saline 100 mL/h. DuoNeb four times a day, Protonix 40 mg daily, Rocephin 1 g IV daily. ALLERGIES: NONE KNOWN. REVIEW OF SYSTEMS: Very lethargic, sleepy, cachectic looking. No hemoptysis. Has some cough and shortness of breath. No chest pain. No vomiting, no hematuria. No leg swelling reported. OBJECTIVE: GENERAL: No acute distress. VITAL SIGNS: Temperature is 98, heart rate is 97, respiratory rate is 18, blood pressure of 111/55, pulse ox 97% on nasal cannula. HEENT: Small oral cavity. Crowded airway. Has a right eye blind. NECK: Supple. No JVD. LUNGS: Scattered rhonchi. HEART: S1 and S2. ABDOMEN: Soft, nontender, nondistended. EXTREMITIES: No edema. Has a decubiti ulcer. NEUROLOGIC: Sleepy, arousable. LABORATORY DATA: Hemoglobin 8.0, hematocrit 25.8, WBC 11.8, platelets 451,000. INR 1.25. PTT is 26. VBG is pH 7.34, pCO2 of 36, O2 of 72, this is on room air. Sodium 131, potassium 3.2, chloride 104, bicarbonate 22, BUN 16, creatinine 0.4, glucose 117, calcium 9.4, phosphorus 2.8, magnesium 2.1. AST 33, ALT 39, alk phos is 113, albumin is 2.4. Urinalysis shows wbc 5-10. Influenza A and B is negative. Microbiology: Hip wound cultures are pending. Blood cultures are pending. Chest x-ray done in ER shows hazy changes in the right lung, may represent pneumonia. EKG done in ER shows sinus rhythm with short SC interval, low-voltage QRS, nonspecific T-wave changes. IMPRESSION AND PLAN: Possible pneumonia, multiple decubiti ulcers, though might have dementia, anemia, malnutrition. Agree to start antibiotics. Will get procalcitonin in the morning. Surgical consult has been called for decubiti ulcers. Gastric prophylaxis. SCDs to lower extremities. Will send anemia workup. Continue nebulizer treatment. Thank you and we will follow with you. Tien Ramirez MD
--- NOTE | 2018-10-31 21:03 | CP.PCM.PN ---
Subjective - Date & Time of Evaluation Date of Evaluation: 10/31/18 Time of Evaluation: 20:20 - Subjective Subjective: Progress note for Dr. Pulido Pt seen and examined at bedside. Had a discussion with daughter, Nasrin, earlier today and discussed the bedside debridement of the hip pressure wounds and got written consent. Pt now comfortable at rest, non-communicative, no signs of acute distress. Performed bedside debridement of bilateral stage 4 hip pressure ulcers with complication. Objective - Vital Signs/Intake and Output Vital Signs (last 24 hours): Temp Pulse Resp BP Pulse Ox 98.4 F 108 H 18 109/65 98 10/31/18 17:31 10/31/18 18:00 10/31/18 17:31 10/31/18 17:31 10/31/18 06:00 Intake and Output: 10/31/18 11/01/18 18:59 06:59 Intake Total 275 Balance 275 - Medications Medications: Current Medications Acetaminophen (Tylenol 650 Mg Supp) 650 mg RC ONCE ONE Stop: 10/31/18 22:01 Albuterol/Ipratropium (Duoneb 3 Mg/0.5 Mg (3 Ml) Ud) 3 ml IH QIDRESP [facility] Last Admin: 10/31/18 19:28 Dose: 3 ml Ceftriaxone Sodium (Rocephin 1 Gram Ivpb) 1 gm in 100 mls @ 100 mls/hr IVPB DAILY [facility]; Protocol Last Admin: 10/31/18 15:17 Dose: 100 mls/hr Azithromycin 250 mg/ Sodium (Chloride) 250 mls @ 167 mls/hr IVPB DAILY [facility]; Protocol Last Admin: 10/31/18 10:08 Dose: 167 mls/hr Dextrose/Sodium Chloride (Dextrose 5%/0.9% Ns 1000 Ml) 1,000 mls @ 100 mls/hr IV .Q10H [facility] Last Admin: 10/31/18 15:24 Dose: 100 mls/hr Pantoprazole Sodium (Protonix Inj) 40 mg IVP DAILY [facility] Last Admin: 10/31/18 15:17 Dose: 40 mg Sodium Hypochlorite (Dakins Solution 0.25%) 0 ml TOP DAILY [facility] Last Admin: 10/31/18 13:26 Dose: 1 applic - Labs Labs: 10/31/18 08:15 10/31/18 08:15 PT 14.4 SECONDS (9.4-12.5) H 10/30/18 12:50 INR 1.25 10/30/18 12:50 APTT 26.2 Seconds (25.1-36.5) 10/30/18 12:50 - Constitutional Appears: Cachectic, Chronically Ill - Head Exam Head Exam: ATRAUMATIC, NORMOCEPHALIC - Eye Exam Eye Exam: Normal appearance. absent: Conjunctival injection, Scleral icterus - ENT Exam ENT Exam: Mucous Membranes Moist, Normal Oropharynx - Respiratory Exam Respiratory Exam: NORMAL BREATHING PATTERN. absent: Accessory Muscle Use, Respiratory Distress - Cardiovascular Exam Cardiovascular Exam: RRR - GI/Abdominal Exam GI & Abdominal Exam: Soft. absent: Distended, Tenderness - Extremities Exam Extremities Exam: absent: Calf Tenderness, Pedal Edema, Tenderness - Neurological Exam Neurological Exam: Altered. absent: Oriented x3 - Psychiatric Exam Psychiatric exam: Flat Affect, Normal Mood - Skin Skin Exam: Dry, Normal Color, Warm Additional comments: BL hips with stage 4 pressure wounds Assessment and Plan - Assessment and Plan (Free Text) Assessment: 88F with BL hip stage 4 pressure wounds with necrotic eschar, stage 2 sacral wound Plan: Bedside incision and drainage performed F/U cultures Daily wet to dry dressing changes of the hips with dakins solution and optifoam Daily optifoam dressing change to the sacral wound air mattress turn Q2 pursue adequate nutrition antibiotics per ID Discussed with Dr. Pulido, who agrees with above MANI Aj Addendum Addendum: 10/31/18 21:07 procedure report Performed by MANI Aj. Overseeing physician Dr. Angel Pulido Pre-op diagnosis: BL stage four hip pressure wounds Operative findings: left hip with 2 ulcers both measuring approx [id number] 0.25cm with short subcutaneous connection between the two, extending into the subcutaneous fat and muscle with overlying eschar and necrotic tissue underneath. Right hip stage 4 ulcer approx 7cm x 4.5cm x 0.25cm extending into the subcutaneous fat and muscle with overlying eschar and necrotic tissue underneath Post-op diagnosis: same Procedure: Bedside sharp debridement of Bilateral stage 4 hip ulcers Operative indication: Patient is bedbound and has BL stage 4 sacral ulcers with overlying eschar and evidence of necrotic tissue underneath Written consent was obtained from daughter Nasrin, medical decision maker and witnessed by nursing staff Time out was performed at the bedside with nurse patient was positioned in right lateral decubitus and forceps and scissors were used to remove eschar and some of the necrotic tissue of the left posterior pressure ulcer. Culture was obtained of this tissue. The necrotic tissue was debrided from the anterior left ulcer, and the ulcers were dressed with 4x4 soak ed in dakins and an optifoam dressing. Patient was then repositioned with nursing assistance and the right hip ulcer was debrided with scissors and foreceps and dressed in a similar fashion. Patient tolerated the procedure well without any complaints or signs of distress, no bleeding or any other co mplications were encountered. EBL: 0 Date: 10/31/18 Time: 2019
--- NOTE | 2018-11-01 00:45 | PN ---
DATE: 10/31/2018 SUBJECTIVE: An 88-year-old female. She is lying in bed. Seems comfortable. She is holding her hands together. She is cachectic. She is not moving much, and she is not talking much. No respiratory distress. She does open her eyes. She does mumble but no respiratory distress. No chest pain. Seems comfortable. PHYSICAL EXAMINATION: VITAL SIGNS: Temperature 97.7, heart rate 97, blood pressure 111/55, respirations 18. HEAD AND NECK: Normal. No JVD. No thyromegaly. CHEST: Diminished breath sounds but clear. CARDIAC: First and second sounds are normal. ABDOMEN: Soft. Nontender. EXTREMITIES: No edema but she is moving. She does not follow directly commands, but she does have decubitus on both hip areas and sacral areas. No evidence of ischemia in the legs. NEUROLOGIC: She is demented and moving extremities. LABORATORY DATA: Laboratory study here: White count 11.8; hemoglobin 8, dropped from 8.6 to 8; hematocrit 25; and platelets 451. Chemistry: Sodium 131, potassium 3.2, chloride 104, bicarb 22, BUN 16, creatinine 0.4, blood sugar 117. Liver function test is normal. The patient has cultures, still pending. IMPRESSION AND PLAN: 1. Pneumonia. Continue intravenous antibiotics. Continue inhaled bronchodilators. Follow up with reimbursement consultant, Dr. Ramirez. 2. Anemia, probably iron deficiency. We will get Dr. Tucker and Dr. Downing, gastroenterology consult. Dr. Tucker is for hematology consult. We will seek for transfusions and iron intravenous, and we will follow up with them. 3. Decubitus. Seen by Dr. Pulido. Continue local wound care. 4. Electrolyte abnormality, low potassium. We will do replacements and repeat labs in the morning. Continue gastrointestinal and deep vein thrombosis prophylaxis. Follow up clinically. Clarence Macedo MD
[2018-11-01 07:12] LABS: BASO # 0.02 K/mm3 (0.0-2.0); BASO % 0.3 % (0.0-3.0); EOS % 0.4 % (1.5-5.0); GRAN # 5.67 (1.4-6.5); GRAN % 77.9 % (50.0-68.0); HEMOGLOBIN 7.5 g/dL (12.0-16.0); LYMPH % 13.1 % (22.0-35.0); MEAN CELL VOLUME 85.7 fl (80.0-105.0); MEAN CORPUSCULAR HEMOGLOBIN 26.8 pg (25.0-35.0); MEAN CORPUSCULAR HGB CONC 31.3 g/dl (31.0-37.0); MEAN PLATELET VOLUME 8.1 fl (7.0-11.0); MONO # 0.6 (0.1-0.6); MONO % 8.3 % (1.0-6.0); RBC 2.8 10^6/uL (3.5-6.1); RED CELL DISTRIBUTION WIDTH 18.5 % (11.5-14.5); WHITE BLOOD COUNT 7.3 10^3/uL (4.5-11.0)
[2018-11-01] MEDS: Albuterol-Ipratrop 3 mg / 0.5 (3 ml) UD IH SCH ×4 (07:21→19:15)
[2018-11-01 07:24] LABS: IRON 16 ug/dL (45-180)
[2018-11-01 07:29] LABS: BLOOD UREA NITROGEN 15 mg/dL (7-21); CALCIUM 8.7 mg/dL (8.4-10.5); GFR NON-AFRICAN AMERICAN > 60
[2018-11-01 07:40] LABS: % IRON SATURATION 9 % (20-55); TOTAL IRON BINDING CAPACITY 174 ug/dL (265-497)
--- NOTE | 2018-11-01 08:34 | CP.PCM.PN ---
Subjective - Date & Time of Evaluation Date of Evaluation: 11/01/18 Time of Evaluation: 07:28 - Subjective Subjective: PGY-1 Maggie Fontaine D.O. Surgery progress note for Dr. Pulido: Patient was seen and examined this morning. She is nonverbal. She occasionally moans/yells when moved or touched. Her bilateral stage 4 hip wounds were debrided at bedside yesterday. They are redressed today, and patient is turned to her alternate side. She appears comfortable, not in acute distress. Objective - Vital Signs/Intake and Output Vital Signs (last 24 hours): Temp Pulse Resp BP Pulse Ox 97.2 F L 90 19 112/62 96 11/01/18 06:07 11/01/18 06:07 11/01/18 06:07 11/01/18 06:07 11/01/18 06:07 Intake and Output: 11/01/18 11/01/18 06:59 18:59 Intake Total 1260 Output Total 325 Balance 935 - Medications Medications: Current Medications Albuterol/Ipratropium (Duoneb 3 Mg/0.5 Mg (3 Ml) Ud) 3 ml IH QIDRESP [facility] Last Admin: 11/01/18 07:21 Dose: 3 ml Ceftriaxone Sodium (Rocephin 1 Gram Ivpb) 1 gm in 100 mls @ 100 mls/hr IVPB DAILY [facility]; Protocol Last Admin: 10/31/18 15:17 Dose: 100 mls/hr Azithromycin 250 mg/ Sodium (Chloride) 250 mls @ 167 mls/hr IVPB DAILY [facility]; Protocol Last Admin: 10/31/18 10:08 Dose: 167 mls/hr Dextrose/Sodium Chloride (Dextrose 5%/0.9% Ns 1000 Ml) 1,000 mls @ 100 mls/hr IV .Q10H [facility] Last Admin: 10/31/18 15:24 Dose: 100 mls/hr Pantoprazole Sodium (Protonix Inj) 40 mg IVP DAILY [facility] Last Admin: 10/31/18 15:17 Dose: 40 mg Sodium Hypochlorite (Dakins Solution 0.25%) 0 ml TOP DAILY [facility] Last Admin: 10/31/18 13:26 Dose: 1 applic - Labs Labs: 11/01/18 06:30 11/01/18 06:30 PT 14.4 SECONDS (9.4-12.5) H 10/30/18 12:50 INR 1.25 10/30/18 12:50 APTT 26.2 Seconds (25.1-36.5) 10/30/18 12:50 - Constitutional Appears: No Acute Distress, Chronically Ill - Head Exam Head Exam: ATRAUMATIC, NORMAL INSPECTION - Eye Exam Eye Exam: Normal appearance - ENT Exam ENT Exam: Mucous Membranes Moist - Neck Exam Neck Exam: Normal Inspection - Respiratory Exam Respiratory Exam: NORMAL BREATHING PATTERN. absent: Respiratory Distress - Cardiovascular Exam Cardiovascular Exam: REGULAR RHYTHM - GI/Abdominal Exam GI & Abdominal Exam: Soft. absent: Distended, Tenderness - Extremities Exam Extremities Exam: absent: Pedal Edema - Back Exam Additional comments: stage 2 sacral ulcer - Neurological Exam Neurological Exam: Alert, Altered, Awake. absent: Normal Gait, Oriented x3 - Skin Additional comments: bilateral stage 4 hip pressure ulcers- no signs of bleeding or drainage (debrided yesterday) Assessment and Plan - Assessment and Plan (Free Text) Assessment: 88F with multiple pressure ulcers- b/l stage 4 hip, stage 2 sacral, b/l stage 1 shoulders - Bedside I&D of b/l hip ulcers on 10/31 Plan: - Daily wet to dry dressing changes of the hips with Dakins solution and Optifoam - Daily Optifoam dressing change to the sacral wound - Air mattress - Turn Q2H - Blood Cx no growth >24 hours - F/u wound Cx - Continue antibiotics per ID - Adequate hydration and nutrition Further recs as per attending, Dr. Pulido.
[2018-11-01] MEDS: cefTRIAXone 1 gm 1 GM/100 ML BAG IVPB SCH (09:56)
[2018-11-01] MEDS: Dakin's Topical 0.25%-Half Strength (480 ml) TOP SCH (09:58)
[2018-11-01] MEDS ORDERED: DiphenhydrAMINE 50 mg/ml Inj IVP ONE ×2 (11:00→12:46)
[2018-11-01] MEDS ORDERED: Acetaminophen 650mg/20.3ml solution UD PO ONE ×2 (11:00→12:48)
--- NOTE | 2018-11-01 11:01 | CP.PCM.APN ---
Subjective - Date & Time of Evaluation Date of Evaluation: 11/01/18 Time of Evaluation: 10:25 - Subjective Subjective: 88 year old female with pmh Alzheimer's presented with comlaint of cough over last 2 days admitted with sepsis , secondary to right lower lobe pneumonia, for further workup and treatmemt. Was also noted to have multiple sacral decub ulc ers. Pt. seen and examined at bedside. Is nonverbal, confused, contracted, unable to answer questions. RR easy and unlabored. Is moaning and grimmacing. Review of Systems - Constitutional Constitutional: As Per HPI - EENT Eyes: As Per HPI Ears: As Per HPI - Cardiovascular Cardiovascular: As Per HPI - Respiratory Respiratory: Cough - Genitourinary Additional comments: hsieh draining - Musculoskeletal Musculoskeletal: As Per HPI - Neurological Neurological: As Per HPI - Hematologic/Lymphatic Hematologic: As Per HPI Objective - Vital Signs/Intake and Output Vital Signs (last 24 hours): Temp Pulse Resp BP Pulse Ox 97.2 F L 90 19 112/62 96 11/01/18 06:07 11/01/18 06:07 11/01/18 06:07 11/01/18 06:07 11/01/18 06:07 Intake and Output: 11/01/18 11/01/18 06:59 18:59 Intake Total 1260 Output Total 325 Balance 935 - Medications Medications: Current Medications Acetaminophen (Tylenol 650mg/20.3ml Solution Ud) 650 mg PO Q6H ONE Stop: 11/01/18 11:01 Albuterol/Ipratropium (Duoneb 3 Mg/0.5 Mg (3 Ml) Ud) 3 ml IH QIDRESP [facility] Last Admin: 11/01/18 07:21 Dose: 3 ml Diphenhydramine HCl (Benadryl) 25 mg IVP ONCE ONE Stop: 11/01/18 11:01 Ceftriaxone Sodium (Rocephin 1 Gram Ivpb) 1 gm in 100 mls @ 100 mls/hr IVPB DAILY [facility]; Protocol Last Admin: 11/01/18 09:56 Dose: 100 mls/hr Azithromycin 250 mg/ Sodium (Chloride) 250 mls @ 167 mls/hr IVPB DAILY [facility]; Protocol Last Admin: 10/31/18 10:08 Dose: 167 mls/hr Dextrose/Sodium Chloride (Dextrose 5%/0.9% Ns 1000 Ml) 1,000 mls @ 100 mls/hr IV .Q10H [facility] Last Admin: 10/31/18 15:24 Dose: 100 mls/hr Metronidazole (Flagyl) 500 mg in 100 mls @ 100 mls/hr IV Q8 [facility]; Protocol Pantoprazole Sodium (Protonix Inj) 40 mg IVP DAILY [facility] Last Admin: 11/01/18 09:57 Dose: 40 mg Sodium Hypochlorite (Dakins Solution 0.25%) 0 ml TOP DAILY [facility] Last Admin: 11/01/18 09:58 Dose: 1 applic - Labs Labs: 11/01/18 06:30 11/01/18 06:30 PT 14.4 SECONDS (9.4-12.5) H 10/30/18 12:50 INR 1.25 10/30/18 12:50 APTT 26.2 Seconds (25.1-36.5) 10/30/18 12:50 - Constitutional Appears: Well, Non-toxic, Chronically Ill - Head Exam Head Exam: NORMAL INSPECTION - Eye Exam Eye Exam: Normal appearance - ENT Exam ENT Exam: Mucous Membranes Moist - Neck Exam Neck Exam: Full ROM - Respiratory Exam Respiratory Exam: Decreased Breath Sounds - Cardiovascular Exam Cardiovascular Exam: REGULAR RHYTHM, +S1, +S2 - GI/Abdominal Exam GI & Abdominal Exam: Soft, Normal Bowel Sounds - Rectal Exam Rectal Exam: Deferred
--- NOTE | 2018-11-01 11:34 | PN ---
DATE: 11/01/2018 PULMONARY PROGRESS NOTE REFERRING PHYSICIAN: Dr. Patterson. SUBJECTIVE: The patient is lying in bed, awake, nonverbal, does not appear to be in any acute distress. No hemoptysis, hematemesis, hematuria, diarrhea or leg swelling reported. OBJECTIVE: GENERAL: No acute distress. VITAL SIGNS: Blood pressure 112/62, pulse 90, temperature 97.2 and oxygen saturation 96%. HEENT: Small oral cavity. Crowded airway. Right eye blind. NECK: Supple. No JVD. LUNGS: Scattered rhonchi bilaterally. CARDIOVASCULAR: S1 and S2, audible. ABDOMEN: Soft and nontender. No distention. EXTREMITIES: No bilateral lower extremity edema. Has decubitus ulcers. NEUROLOGIC: Awake and nonverbal. MEDICATIONS: Reviewed. Tylenol 650 mg every 6 hours one time dose, DuoNeb 3 mL inhalation 4 times a day, azithromycin 250 mg IV piggyback daily, Rocephin 1 g IV piggyback daily, Dextrose 1000 mL at 100 mL per hour, Benadryl 25 mg IV push once, Flagyl 500 mg every 8 hours, Protonix 40 mg IV push daily, and Dakin solution topically to affected area. LABORATORY DATA: Reviewed. WBC 7.3, RBC 2.8, hemoglobin 7.5, hematocrit 24 and platelets 480. Sodium 133, potassium 3.8, chloride 108, carbon dioxide 24, anion gap 6, BUN 15, creatinine 0.4, GFR greater than 60, random glucose 139, calcium 8.7, phosphorus 2.9 and magnesium 2.1. Iron 16, TIBC 174 and percent saturation 9. Wound culture right hip shows gram-negative rods, left hip gram-negative rods, buttock wound culture gram-negative rods and sacral wound culture pending. Urine culture final, no growth, less than 1000. Blood cultures preliminary shows no growth after 24 hours. IMPRESSION AND PLAN: Possible pneumonia, multiple decubitus ulcers, may have dementia, anemia and malnutrition. Continue antibiotic therapy. Procalcitonin level not available at this time, we will follow up when available. Surgical consult continue for decubitus ulcers, gastric prophylaxis, sequential compression devices to lower extremities. Continue inhaled bronchodilators and head of bed elevated at 45 degrees. This patient was seen and examined with Dr. Ramirez. Discussed assessment and plan as described above. Thank you for this consult and we will follow with you. Patric Ybarra APN Tien Ramirez MD [facility] # [id number]
--- NOTE | 2018-11-01 11:37 | CP.PCM.CON ---
<Carlos Enrique Ziegler - Last Filed: 11/01/18 14:28> History of Present Illness - History of Present Illness History of Present Illness: GI fellow PGY4, consult note. Daisy Hansen is a 88F presenting with cough and failure to thrive and found to have pneumonia and multiple decubitus ulcers. She has had recurrent anemia with blood transufsions and GI was consulted for possible bleed. Patient is reportedly DNR. Patient has dementia and unable to give appropriate history. There have been no reports of active GI bleeding. A fecal occult was completed and negative. She had colonoscopy in 2012 which was negative. Patient is recovering from bedside debridement of sacral ulcers on this admission. pmhx - as above PSHx - as above FmHx - unable to obtain SocHx - unable to obtain Unable to obtain full ROS due to dementia Past Patient History - Infectious Disease Hx of Infectious Diseases: None - Tetanus Immunizations Tetanus Immunization: Unknown - Past Social History Smoking Status: Never Smoked - CARDIAC Hx Cardiac Disorders: No - PULMONARY Hx Respiratory Disorders: No - NEUROLOGICAL Hx Alzheimer's Disease: Yes (10 yrs) - HEENT Hx HEENT Problems: Yes (blind in right eye) - RENAL Hx Chronic Kidney Disease: No - ENDOCRINE/METABOLIC Hx Endocrine Disorders: No - HEMATOLOGICAL/ONCOLOGICAL Hx Blood Disorders: No - INTEGUMENTARY Hx Dermatological Problems: No - MUSCULOSKELETAL/RHEUMATOLOGICAL Hx Musculoskeletal Disorders: Yes - GASTROINTESTINAL Hx Crohn's Disease: Yes - GENITOURINARY/GYNECOLOGICAL Hx Incontinence: Yes - PSYCHIATRIC Hx Emotional Abuse: No Hx Physical Abuse: No Hx Substance Use: No - SURGICAL HISTORY Other/Comment: colon sx in 8 yrs ago - ANESTHESIA Hx Anesthesia: Yes Hx Anesthesia Reactions: No Hx Malignant Hyperthermia: No Meds Allergies/Adverse Reactions: Allergies Allergy/AdvReac Type Severity Reaction Status Date / Time No Known Allergies Allergy Verified 10/30/18 12:22 - Medications Medications: Current Medications Albuterol/Ipratropium (Duoneb 3 Mg/0.5 Mg (3 Ml) Ud) 3 ml IH QIDRESP [facility] Last Admin: 11/01/18 07:21 Dose: 3 ml Ceftriaxone Sodium (Rocephin 1 Gram Ivpb) 1 gm in 100 mls @ 100 mls/hr IVPB DAILY [facility]; Protocol Last Admin: 11/01/18 09:56 Dose: 100 mls/hr Azithromycin 250 mg/ Sodium (Chloride) 250 mls @ 167 mls/hr IVPB DAILY [facility]; Protocol Last Admin: 10/31/18 10:08 Dose: 167 mls/hr Dextrose/Sodium Chloride (Dextrose 5%/0.9% Ns 1000 Ml) 1,000 mls @ 100 mls/hr IV .Q10H [facility] Last Admin: 10/31/18 15:24 Dose: 100 mls/hr Metronidazole (Flagyl) 500 mg in 100 mls @ 100 mls/hr IV Q8 [facility]; Protocol Pantoprazole Sodium (Protonix Inj) 40 mg IVP DAILY [facility] Last Admin: 11/01/18 09:57 Dose: 40 mg Sodium Hypochlorite (Dakins Solution 0.25%) 0 ml TOP DAILY [facility] Last Admin: 11/01/18 09:58 Dose: 1 applic Physical Exam - Constitutional Appears: Non-toxic, No Acute Distress, Confused, Cachectic, Chronically Ill - Head Exam Head Exam: absent: ATRAUMATIC, NORMAL INSPECTION - ENT Exam ENT Exam: Mucous Membranes Dry, Normal Exam - Respiratory Exam Respiratory Exam: Clear to Auscultation Bilateral, NORMAL BREATHING PATTERN - Cardiovascular Exam Cardiovascular Exam: REGULAR RHYTHM, +S1, +S2. absent: Tachycardia - GI/Abdominal Exam GI & Abdominal Exam: Normal Bowel Sounds, Soft. absent: Organomegaly, Tenderness - Extremities Exam Extremities exam: Negative for: full ROM, normal inspection - Psychiatric Exam Psychiatric exam: Depressed, Flat Affect - Skin Skin Exam: Dry, Normal Color Results - Vital Signs Recent Vital Signs: Last Vital Signs Temp 97.2 F L 11/01/18 06:07 Pulse 90 11/01/18 06:07 Resp 19 11/01/18 06:07 BP 112/62 11/01/18 06:07 Pulse Ox 96 11/01/18 06:07 - Labs Result Diagrams: 11/01/18 06:30 11/01/18 06:30 Labs: Laboratory Results - last 24 hr 10/31/18 10/31/18 10/31/18 08:15 17:10 19:00 WBC 11.8 H RBC 3.01 L Hgb 8.0 L Hct 25.8 L MCV 85.7 MCH 26.6 MCHC 31.0 RDW 18.5 H Plt Count 451 H MPV 7.8 Gran % 82.0 H Lymph % (Auto) 11.2 L [place] % (Auto) 6.2 H Eos % (Auto) 0.5 L Baso % (Auto) 0.1 Gran # 9.66 H Lymph # (Auto) 1.3 [place] # (Auto) 0.7 H Eos # (Auto) 0.1 Baso # (Auto) 0.01 Retic Count Cancelled Sodium Potassium Chloride Carbon Dioxide Anion Gap BUN Creatinine Est GFR ( Amer) Est GFR (Non-Af Amer) Random Glucose Calcium Phosphorus Magnesium Iron TIBC % Saturation Stool Occult Blood Negative Blood Type O POSITIVE Antibody Screen Negative Crossmatch See Detail BBK History Checked Patient has bt 11/01/18 11/01/18 11/01/18 06:30 06:30 06:30 WBC 7.3 D RBC 2.80 L Hgb 7.5 L Hct 24.0 L MCV 85.7 MCH 26.8 MCHC 31.3 RDW 18.5 H Plt Count 480 H MPV 8.1 Gran % 77.9 H Lymph % (Auto) 13.1 L [place] % (Auto) 8.3 H Eos % (Auto) 0.4 L Baso % (Auto) 0.3 Gran # 5.67 Lymph # (Auto) 1.0 L [place] # (Auto) 0.6 Eos # (Auto) 0.0 Baso # (Auto) 0.02 Retic Count 1.49 Sodium 133 Potassium 3.8 Chloride 108 H Carbon Dioxide 24 Anion Gap 6 L BUN 15 Creatinine 0.4 L Est GFR ( Amer) > 60 Est GFR (Non-Af Amer) > 60 Random Glucose 139 H Calcium 8.7 Phosphorus 2.9 Magnesium 2.1 Iron 16 L TIBC 174 L % Saturation 9 L Stool Occult Blood Blood Type Antibody Screen Crossmatch BBK History Checked Assessment & Plan - Assessment and Plan (Free Text) Assessment: #Dementia #Pneumonia #Malnourished #Recurrent chronic anemia likely of chronic disease #Sacral ulcers s/p debridement #DNR PLAN: -No obvious active GI bleed at this time. Stool occult negative. -Obtain CT scan of abd/pelv -Continue supportive care, abx -Recommend high protein diet, supplements as needed. Nursing reports patient does eat with consistent prompting. -Continue debridement, wound care per surgery -No endoscopic procedures planned at this time. - Date & Time Date: 11/01/18 Time: 11:40 <Walt Downing V - Last Filed: 11/01/18 23:09> Meds - Medications Medications: Current Medications Acetaminophen (Tylenol 325mg Tab) 650 mg PO Q6H PRN PRN Reason: Pain, Mild (1-3) Albuterol/Ipratropium (Duoneb 3 Mg/0.5 Mg (3 Ml) Ud) 3 ml IH QIDRESP [facility] Last Admin: 11/01/18 19:15 Dose: 3 ml Ceftriaxone Sodium (Rocephin 1 Gram Ivpb) 1 gm in 100 mls @ 100 mls/hr IVPB DAILY [facility]; Protocol Last Admin: 11/01/18 09:56 Dose: 100 mls/hr Azithromycin 250 mg/ Sodium (Chloride) 250 mls @ 167 mls/hr IVPB DAILY [facility]; Protocol Last Admin: 11/01/18 19:00 Dose: Not Given Dextrose/Sodium Chloride (Dextrose 5%/0.9% Ns 1000 Ml) 1,000 mls @ 100 mls/hr IV .Q10H [facility] Last Admin: 11/01/18 21:42 Dose: 100 mls/hr Metronidazole (Flagyl) 500 mg in 100 mls @ 100 mls/hr IV Q8 [facility]; Protocol Last Admin: 11/01/18 22:03 Dose: 100 mls/hr Pantoprazole Sodium (Protonix Inj) 40 mg IVP DAILY [facility] Last Admin: 11/01/18 09:57 Dose: 40 mg Sodium Hypochlorite (Dakins Solution 0.25%) 0 ml TOP DAILY [facility] Last Admin: 11/01/18 09:58 Dose: 1 applic Results - Vital Signs Recent Vital Signs: Last Vital Signs Temp 98.4 F 11/01/18 21:30 Pulse 100 H 11/01/18 21:30 Resp 20 11/01/18 21:30 BP 80/44 L 11/01/18 21:30 Pulse Ox 96 11/01/18 06:07 - Labs Result Diagrams: 11/01/18 06:30 11/01/18 06:30 Labs: Laboratory Results - last 24 hr 10/31/18 10/31/18 11/01/18 08:15 17:10 06:30 WBC 11.8 H 7.3 D RBC 3.01 L 2.80 L Hgb 8.0 L 7.5 L Hct 25.8 L 24.0 L MCV 85.7 85.7 MCH 26.6 26.8 MCHC 31.0 31.3 RDW 18.5 H 18.5 H Plt Count 451 H 480 H MPV 7.8 8.1 Gran % 82.0 H 77.9 H Lymph % (Auto) 11.2 L 13.1 L [place] % (Auto) 6.2 H 8.3 H Eos % (Auto) 0.5 L 0.4 L Baso % (Auto) 0.1 0.3 Gran # 9.66 H 5.67 Lymph # (Auto) 1.3 1.0 L [place] # (Auto) 0.7 H 0.6 Eos # (Auto) 0.1 0.0 Baso # (Auto) 0.01 0.02 Retic Count Cancelled 1.49 Sodium Potassium Chloride Carbon Dioxide Anion Gap BUN Creatinine Est GFR ( Amer) Est GFR (Non-Af Amer) Random Glucose Calcium Phosphorus Magnesium Iron TIBC % Saturation Ferritin Vitamin B12 Folate Procalcitonin Blood Type O POSITIVE Antibody Screen Negative Crossmatch See Detail BBK History Checked Patient has bt 11/01/18 11/01/18 11/01/18 06:30 06:30 06:30 WBC RBC Hgb Hct MCV MCH MCHC RDW Plt Count MPV Gran % Lymph % (Auto) [place] % (Auto) Eos % (Auto) Baso % (Auto) Gran # Lymph # (Auto) [place] # (Auto) Eos # (Auto) Baso # (Auto) Retic Count Sodium 133 Potassium 3.8 Chloride 108 H Carbon Dioxide 24 Anion Gap 6 L BUN 15 Creatinine 0.4 L Est GFR ( Amer) > 60 Est GFR (Non-Af Amer) > 60 Random Glucose 139 H Calcium 8.7 Phosphorus 2.9 Magnesium 2.1 Iron 16 L TIBC 174 L % Saturation 9 L Ferritin 970.0 Vitamin B12 777 Folate 10.0 Procalcitonin 1.79 H Blood Type Antibody Screen Crossmatch BBK History Checked Attending/Attestation - Attestation I have personally seen and examined this patient.: Yes I have fully participated in the care of the patient.: Yes I have reviewed all pertinent clinical information: Yes Notes (Text): This is an addendum to GI consult report dictated by the GI Fellow. The patient was seen and examined earlier. Medical records, lab studies, imagings were reviewed. Last 24 hours events reviewed. Agreed with the above treatment plan as outlined in GI Fellow 's notes with the addition of the following This patient has multiple comorbidities Status post wound debridement done by surgery at bedside Significant drop in blood count history of anemia Would request a CT of the abdomn and pelvis with only oral contrast Patient is tolerating pured diet with assistance Will discuss with the family regarding further GI workup presently patient is DNR we will discuss with PCP 11/01/18 23:07
[2018-11-01] MEDS: Dextrose 5%/0.9% NS 1,000 ML IV SCH ×3 (12:15→21:42)
[2018-11-01] MEDS ORDERED: Barium Sulfate Susp 2.1% w/v, 2.0% w/w 450 mL Bottle PO ONE (14:40)
--- NOTE | 2018-11-01 16:41 | CP.PCM.PCO ---
Physician Communication Note - Physician Communication Note Physician Communication Note: Wounds debrided(Bedside)-Non septic!
[2018-11-01] MEDS ORDERED: Iohexol 350 MG/100 ML VIAL ONE (17:34)
[2018-11-01] MEDS: metroNIDAZOLE IV 500 mg/100 ml 500 MG/100 ML BAG IV SCH ×2 (18:57→22:03)
[2018-11-01] MEDS: Azithromycin 250 MG in Sodium Chloride 0.9% 250 ML IVPB SCH (19:00)
--- NOTE | 2018-11-01 23:51 | CON ---
DATE: 11/01/2018 This is [facility] consult on the telemetry floor. For Dr. Tucker: CHIEF COMPLAINT: Cold and congestion. HISTORY OF PRESENT ILLNESS: The patient is an 88-year-old female brought to emergency room by her family with 2-day history of productive cough, dyspnea, difficulty swallowing with the patient bed bound, with a history of Alzheimer's disease. The patient is at present resting in no acute distress; however, there are noticeable dressings for pressure ulcers in heel, sacrum and her shoulder. ALLERGIES: NO KNOWN ALLERGIES. MEDICATIONS: At this point include Dakin's solution, IV fluid, DuoNeb, Flagyl, K-rider, Protonix, Rocephin, Tylenol, and Zithromax. PAST MEDICAL HISTORY: History of hypertension, Alzheimer's disease with transfusion in 09/2018 with 2 units of packed cells for significant hemoglobin with anemic indices otherwise denied as per review of chart. FAMILY HISTORY AND SOCIAL HISTORY: Noncontributory. Denies alcohol or tobacco abuse. Lives with her for which she was dependent for activities of daily living. REVIEW OF SYSTEMS: A 12-point review of systems was done which is negative to questioning except for the items mentioned in history of present illness. OBJECTIVE/PHYSICAL EXAMINATION VITAL SIGNS: Temperature 97.2, pulse 86, respirations 19, blood pressure 112/62, pulse oximetry 96%. HEENT: Tongue is dry. NECK: Supple. HEART: Regular rate. Occasional ectopic beat. LUNGS: Rare rhonchi. ABDOMEN: Soft. EXTREMITIES: Contracted. SKIN: Multiple ulcers noted in the sacrum on the shoulder. NEUROLOGIC: Awake, confused, nonverbal. The patient appears cachectic. LABORATORY DATA: The patient's chest x-ray was done 2 days prior, was read as hazy change in the right lung, may represent open infiltrates. EKG was done 2 days prior, was read as sinus rhythm, short TX, low voltage QRS, nonspecific T wave abnormality, prolonged QT, abnormal EKG. The patient labs were reviewed on admission; white blood cell count of 14.7, today 7.3; hemoglobin 8.6, yesterday 8, today 7.5; hematocrit today 44; platelet count 480,000. Chem metabolic panel showed chloride of 108 with a potassium corrected for 3.2 to 3.8 today. Iron percent saturation of 9%. Stool for occult blood is reported as negative. ASSESSMENT: For this patient is that of symptomatic anemia, pneumonia, decubiti, electrolyte imbalance, Alzheimer's disease, cachexia. PLAN: For this patient after conversation with Dr. Tucker is to transfuse 2 units of packed red blood cells. We will consider IV iron in the future once these irons are improved. The lactic acid was valued at 1.9 on 10/31/2018. We will also monitor clinically with further recommendations as indicated. We will monitor clinically with labs. Patricio Ferrera MD
[2018-11-02] MEDS ORDERED: Barium Sulfate Susp 2.1% w/v, 2.0% w/w 450 mL Bottle PO ONE (00:19)
[2018-11-02] MEDS: metroNIDAZOLE IV 500 mg/100 ml 500 MG/100 ML BAG IV SCH ×3 (05:16→21:39)
[2018-11-02] MEDS: Albuterol-Ipratrop 3 mg / 0.5 (3 ml) UD IH SCH ×4 (07:12→19:45)
[2018-11-02 07:46] LABS: GRAN # 4.45 (1.4-6.5); GRAN % 80.8 % (50.0-68.0); HEMOGLOBIN 11.3 g/dL (12.0-16.0); LYMPH # 0.6 (1.2-3.4); LYMPH % 10.7 % (22.0-35.0); MEAN CELL VOLUME 82.9 fl (80.0-105.0); MEAN CORPUSCULAR HEMOGLOBIN 26.8 pg (25.0-35.0); MEAN CORPUSCULAR HGB CONC 32.4 g/dl (31.0-37.0); MEAN PLATELET VOLUME 8.3 fl (7.0-11.0); MONO # 0.5 (0.1-0.6); MONO % 8.5 % (1.0-6.0); RBC 4.21 10^6/uL (3.5-6.1); RED CELL DISTRIBUTION WIDTH 17.6 % (11.5-14.5); WHITE BLOOD COUNT 5.5 10^3/uL (4.5-11.0)
--- NOTE | 2018-11-02 07:53 | CP.PCM.PN ---
Subjective - Date & Time of Evaluation Date of Evaluation: 11/02/18 Time of Evaluation: 07:50 - Subjective Subjective: Surgery Progress note- Dr. Pulido Patient seen and examined at bedside. bilateral decubiti hip dressings changed w/ Dakins and dry dressing. Remains non-verbal. Outer edges remain clean. No acute events overnight. Objective - Vital Signs/Intake and Output Vital Signs (last 24 hours): Temp Pulse Resp BP Pulse Ox 98.3 F 92 H 19 96/56 L 97 11/02/18 06:00 11/02/18 06:00 11/02/18 06:00 11/02/18 06:00 11/02/18 06:00 Intake and Output: 11/02/18 11/02/18 06:59 18:59 Intake Total 1125 Output Total 1950 Balance -825 - Medications Medications: Current Medications Acetaminophen (Tylenol 325mg Tab) 650 mg PO Q6H PRN PRN Reason: Pain, Mild (1-3) Albuterol/Ipratropium (Duoneb 3 Mg/0.5 Mg (3 Ml) Ud) 3 ml IH QIDRESP [facility] Last Admin: 11/02/18 07:12 Dose: 3 ml Ceftriaxone Sodium (Rocephin 1 Gram Ivpb) 1 gm in 100 mls @ 100 mls/hr IVPB DAILY [facility]; Protocol Last Admin: 11/01/18 09:56 Dose: 100 mls/hr Azithromycin 250 mg/ Sodium (Chloride) 250 mls @ 167 mls/hr IVPB DAILY [facility]; Protocol Last Admin: 11/01/18 19:00 Dose: Not Given Dextrose/Sodium Chloride (Dextrose 5%/0.9% Ns 1000 Ml) 1,000 mls @ 100 mls/hr IV .Q10H [facility] Last Admin: 11/01/18 21:42 Dose: 100 mls/hr Metronidazole (Flagyl) 500 mg in 100 mls @ 100 mls/hr IV Q8 [facility]; Protocol Last Admin: 11/02/18 05:16 Dose: 100 mls/hr Pantoprazole Sodium (Protonix Inj) 40 mg IVP DAILY [facility] Last Admin: 11/01/18 09:57 Dose: 40 mg Sodium Hypochlorite (Dakins Solution 0.25%) 0 ml TOP DAILY [facility] Last Admin: 11/01/18 09:58 Dose: 1 applic - Labs Labs: 11/01/18 06:30 11/01/18 06:30 PT 14.4 SECONDS (9.4-12.5) H 10/30/18 12:50 INR 1.25 10/30/18 12:50 APTT 26.2 Seconds (25.1-36.5) 10/30/18 12:50 - Constitutional Appears: Non-toxic, No Acute Distress, Chronically Ill - Head Exam Head Exam: ATRAUMATIC - Neck Exam Additional comments: bilateral shoulder stage 1 decubiti - Respiratory Exam Respiratory Exam: NORMAL BREATHING PATTERN. absent: Accessory Muscle Use, Respiratory Distress - Cardiovascular Exam Cardiovascular Exam: REGULAR RHYTHM. absent: Bradycardia, Tachycardia - GI/Abdominal Exam GI & Abdominal Exam: Soft. absent: Distended, Firm, Guarding, Rigid, Tenderness - Extremities Exam Extremities Exam: absent: Calf Tenderness Additional comments: Stage 1 sacral decub ulcer w/ optifoam Stage 4 b/l hip ulcers - Neurological Exam Neurological Exam: Awake - Skin Skin Exam: Warm Assessment and Plan - Assessment and Plan (Free Text) Assessment: 88F w/ multiple pressure ulcers- b/l stage 4 hip, stage 2 sacral, b/l stage 1 shoulders s/p bedside debridement of b/l hip ulcers on 10/31 Plan: - Dakins wet to dry dressing w/ and Optifoam - Daily Optifoam dressing change to the sacral wound - Air mattress - Turn Q2H - Continue antibiotics per ID - encourage adequate nutrition - further recs as per attending, Dr. Ashok Vargas PGY2
[2018-11-02 08:15] LABS: ALB/GLOB RATIO 0.7 (1.1-1.8); ALBUMIN 2.3 g/dL (3.0-4.8); ALT/SGPT 39 U/L (7-56); AST/SGOT 40 U/L (14-36); BLOOD UREA NITROGEN 12 mg/dL (7-21); GFR NON-AFRICAN AMERICAN > 60
[2018-11-02] MEDS: Dextrose 5%/0.9% NS 1,000 ML IV SCH (10:09)
[2018-11-02] MEDS: cefTRIAXone 1 gm 1 GM/100 ML BAG IVPB SCH (10:10)
[2018-11-02] MEDS: Azithromycin 250 MG in Sodium Chloride 0.9% 250 ML IVPB SCH (10:11)
--- NOTE | 2018-11-02 10:14 | CP.PCM.PN ---
<GabechiquikeithCarlos Enrique - Last Filed: 11/02/18 10:11> Subjective - Date & Time of Evaluation Date of Evaluation: 11/02/18 Time of Evaluation: 10:11 - Subjective Subjective: Patient is unchanged clinically from yesterday. No acute distress. She was unable to tolerate PO contrast for CT scan, so it has been held. I spoke with patient's daughter via phone. Her Burmese is not very good, and I was unable to discuss possible PEG tube placement. I requested she come to the hospital to discuss plan of care with the physicians (PEG, hospice, etc.) Objective - Vital Signs/Intake and Output Vital Signs (last 24 hours): Temp Pulse Resp BP Pulse Ox 98.3 F 92 H 19 96/56 L 97 11/02/18 06:00 11/02/18 06:00 11/02/18 06:00 11/02/18 06:00 11/02/18 06:00 Intake and Output: 11/02/18 11/02/18 06:59 18:59 Intake Total 1125 Output Total 1950 Balance -825 - Medications Medications: Current Medications Acetaminophen (Tylenol 325mg Tab) 650 mg PO Q6H PRN PRN Reason: Pain, Mild (1-3) Albuterol/Ipratropium (Duoneb 3 Mg/0.5 Mg (3 Ml) Ud) 3 ml IH QIDRESP [facility] Last Admin: 11/02/18 07:12 Dose: 3 ml Ceftriaxone Sodium (Rocephin 1 Gram Ivpb) 1 gm in 100 mls @ 100 mls/hr IVPB DAILY [facility]; Protocol Last Admin: 11/01/18 09:56 Dose: 100 mls/hr Azithromycin 250 mg/ Sodium (Chloride) 250 mls @ 167 mls/hr IVPB DAILY [facility]; Protocol Last Admin: 11/01/18 19:00 Dose: Not Given Dextrose/Sodium Chloride (Dextrose 5%/0.9% Ns 1000 Ml) 1,000 mls @ 100 mls/hr IV .Q10H [facility] Last Admin: 11/01/18 21:42 Dose: 100 mls/hr Metronidazole (Flagyl) 500 mg in 100 mls @ 100 mls/hr IV Q8 [facility]; Protocol Last Admin: 11/02/18 05:16 Dose: 100 mls/hr Pantoprazole Sodium (Protonix Inj) 40 mg IVP DAILY [facility] Last Admin: 11/01/18 09:57 Dose: 40 mg Sodium Hypochlorite (Dakins Solution 0.25%) 0 ml TOP DAILY [facility] Last Admin: 11/01/18 09:58 Dose: 1 applic - Labs Labs: 11/02/18 06:45 11/02/18 06:45 PT 14.4 SECONDS (9.4-12.5) H 10/30/18 12:50 INR 1.25 10/30/18 12:50 APTT 26.2 Seconds (25.1-36.5) 10/30/18 12:50 - Constitutional Appears: Non-toxic, No Acute Distress - Head Exam Head Exam: ATRAUMATIC. absent: NORMAL INSPECTION - Eye Exam Eye Exam: EOMI, Normal appearance - ENT Exam ENT Exam: Mucous Membranes Moist, Normal Exam - Respiratory Exam Respiratory Exam: Clear to Ausculation Bilateral, NORMAL BREATHING PATTERN - Cardiovascular Exam Cardiovascular Exam: REGULAR RHYTHM, +S1, +S2 - GI/Abdominal Exam GI & Abdominal Exam: Soft, Normal Bowel Sounds. absent: Tenderness - Neurological Exam Neurological Exam: Altered. absent: Oriented x3 - Psychiatric Exam Psychiatric exam: Anxious, Depressed - Skin Skin Exam: Dry. absent: Intact Assessment and Plan - Assessment and Plan (Free Text) Assessment: #Dementia #Pneumonia #Malnourished #Recurrent chronic anemia likely of chronic disease #Sacral ulcers s/p debridement #DNR PLAN: -No obvious active GI bleed at this time. Stool occult negative. -s/p 2u pRBCs with appropriate Hb response. -Obtain CT scan of abd/pelv, unable to tolerate PO contast. -Continue supportive care, abx -Recommend high protein diet, supplements as needed. Nursing reports patient does eat with consistent prompting. -Continue debridement, wound care per surgery -No endoscopic procedures planned at this time. -Will need to discuss with family about the possibility of PEG tube placement. Dexter moura should have field marketing representative to have informed decision. Phone number is [phone]. <Walt Downing V - Last Filed: 11/02/18 22:59> Objective - Vital Signs/Intake and Output Vital Signs (last 24 hours): Temp Pulse Resp BP Pulse Ox 97.1 F L 107 H 18 135/84 97 11/02/18 18:00 11/02/18 18:00 11/02/18 18:00 11/02/18 18:00 11/02/18 06:00 - Medications Medications: Current Medications Acetaminophen (Tylenol 325mg Tab) 650 mg PO Q6H PRN PRN Reason: Pain, Mild (1-3) Albuterol/Ipratropium (Duoneb 3 Mg/0.5 Mg (3 Ml) Ud) 3 ml IH QIDRESP [facility] Last Admin: 11/02/18 19:45 Dose: Not Given Enoxaparin Sodium (Lovenox) 40 mg SC DAILY [facility]; Protocol Ceftriaxone Sodium (Rocephin 1 Gram Ivpb) 1 gm in 100 mls @ 100 mls/hr IVPB DAILY [facility]; Protocol Last Admin: 11/02/18 10:10 Dose: 100 mls/hr Azithromycin 250 mg/ Sodium (Chloride) 250 mls @ 167 mls/hr IVPB DAILY [facility]; Protocol Last Admin: 11/02/18 10:11 Dose: 167 mls/hr Dextrose/Sodium Chloride (Dextrose 5%/0.9% Ns 1000 Ml) 1,000 mls @ 100 mls/hr IV .Q10H [facility] Last Admin: 11/02/18 10:09 Dose: 100 mls/hr Metronidazole (Flagyl) 500 mg in 100 mls @ 100 mls/hr IV Q8 [facility]; Protocol Last Admin: 11/02/18 21:39 Dose: 100 mls/hr Pantoprazole Sodium (Protonix Inj) 40 mg IVP DAILY [facility] Last Admin: 11/02/18 10:09 Dose: 40 mg Sodium Hypochlorite (Dakins Solution 0.25%) 0 ml TOP DAILY [facility] Last Admin: 11/02/18 14:51 Dose: 1 applic - Labs Labs: 11/02/18 06:45 11/02/18 06:45 PT 14.4 SECONDS (9.4-12.5) H 10/30/18 12:50 INR 1.25 10/30/18 12:50 APTT 26.2 Seconds (25.1-36.5) 10/30/18 12:50 Attending/Attestation - Attestation I have personally seen and examined this patient.: Yes I have fully participated in the care of the patient.: Yes I have reviewed all pertinent clinical information, including history, physical exam and plan: Yes Notes (Text): This is an addendum to GI progress report dictated by the GI Fellow. The patient was seen and examined earlier. Medical records, lab studies, imagings were reviewed. Last 24 hours events reviewed. Agreed with the above treatment plan as outlined in GI Fellow 's notes with the addition of the following Discussed with the patient's daughter was at bedside Refused to takePEG tube placement Patient was tolerating pure diet with assistance Daughter was agreeable for a CT scan patient was unable to take by mouth contrast. we will request CT with no by mouth or IV contrast family prefers only conservative management Patient is a DNR 11/02/18 22:55
--- NOTE | 2018-11-02 11:14 | PN ---
DATE: 11/02/2018 PULMONARY PROGRESS NOTE REFERRING PHYSICIAN: Dr. Jim Patterson. SUBJECTIVE: The patient is lying in bed, awake, nonverbal. No hemoptysis, hematemesis, hematuria, diarrhea, or leg swelling reported. Spoke to nursing staff, the patient is unable to tolerate p.o. contrast. OBJECTIVE: GENERAL: No acute distress. VITAL SIGNS: Blood pressure 96/56, pulse 92, temperature 98.3, and oxygen saturation 97% on room air. HEENT: Small oral cavity. Crowded airway. Right eye blind. NECK: Supple. No JVD. LUNGS: Few scattered rhonchi bilaterally. CARDIOVASCULAR: S1 and S2 audible. ABDOMEN: Soft and nontender. No distention. No organomegaly. EXTREMITIES: No bilateral lower extremity edema. The patient has multiple decubitus ulcers. NEUROLOGIC: Awake and nonverbal. MEDICATIONS: Reviewed. Tylenol 650 mg every 6 hours p.r.n. for mild pain, DuoNeb 3 mL inhalation four times a day, azithromycin 250 mg IV piggyback daily, Rocephin 1 g IV piggyback daily, Dextrose 5% normal saline 1000 mL at 100 mL per hour IV, Flagyl 500 mg IV every 8 hours, Protonix 40 mg IV push daily, and Dakin solution topically to affected area daily. LABORATORY DATA: Reviewed. WBC 5.5, RBC 4.21, hemoglobin 11.3, hematocrit 34.9, and platelets 421. Sodium 138, potassium 3.7, chloride 112, carbon dioxide 19, anion gap 11, BUN 12, creatinine 0.3, GFR greater than 60, random glucose 140, calcium 9, total bilirubin 0.4, AST 40, ALT 39, alkaline phosphatase 99, total protein 5.6, albumin 2.3, globulin 3.4 and albumin-globulin ratio 0.7. Procalcitonin 1.79. IMPRESSION AND PLAN: Pneumonia, procalcitonin positive, decubitus ulcers, dementia, anemia and malnutrition. We will order calorie count to assess nutrition. Appreciated gastroenterology notes. Discussion to be had with family regarding percutaneous endoscopic gastrostomy tube placement. Procalcitonin is positive, suspect aspiration pneumonia. The patient is at high risk for further aspiration and further pneumonia. Continue antibiotic therapy. Continue inhaled bronchodilators, head of bed elevated at 45 degrees, and aspiration precaution. Continue followup for decubitus ulcers, gastric prophylaxis, and deep venous thrombosis prophylaxis. This patient was seen and examined with Dr. Ramirez. Discussed assessment and plan as described above. Thank you for this consult. We will follow with you. Patric Ybarra APN Tien Ramirez MD DONNA
[2018-11-02] MEDS: Dakin's Topical 0.25%-Half Strength (480 ml) TOP SCH (14:51)
--- NOTE | 2018-11-02 21:45 | PN ---
DATE: 11/02/2018 This is [facility] visit on the telemetry floor. For Dr. Tucker. SUBJECTIVE: The patient is an 88-year-old female lying on bed on her side with the patient being nonverbal this visit, who has reported difficulty swallowing and pneumonia now diagnosed as well as electrolyte imbalance. She is known to suffer Alzheimer's disease and cachexia, malignancy. She is now status post transfusion of 2 units of packed red blood cells with lab value that was somewhat misleading as the hemoglobin jumped from a 7.5 value yesterday to a 11.3 value today. We will repeat the specimen in the morning as may be a lab error. Otherwise, the patient is in no acute distress. OBJECTIVE/PHYSICAL EXAMINATION VITAL SIGNS: Temperature 98.1, pulse 92, respirations 19, blood pressure 151/68, pulse ox 97%. HEENT: Unremarkable. Tongue is dry. NECK: Supple. HEART: Regular rate. LUNGS: Occasional rhonchi. ABDOMEN: Soft. EXTREMITIES: Contracted. SKIN: Multiple ulcers noted on various sites of her body covered with dressings. NEUROLOGIC: Awake, but confused and nonverbal this visit. LABORATORY DATA: Labs were drawn which include white blood cell count of 5.5 and hemoglobin today of 11.3, increased from 7.5 yesterday after 2 units of packed red blood cells. We will measure her labs tomorrow again to possibly get a more accurate hemoglobin value as this appears to be inflated. Her hematocrit is 34.9 with platelet count of 421,000. Chem metabolic panel shows chloride of 111, carbon dioxide 19, creatinine 0.3, nonfasting glucose of 140, AST of 40, total protein of 5.6 with an albumin of 2.3 with a procalcitonin of 1.79. ASSESSMENT: For this patient is that of symptomatic anemia, now corrected; pneumonia; decubiti; electrolyte imbalance; Alzheimer's disease; cachexia. We will monitor clinically and with labs, antibiotics to continue as per Infectious Disease computing consultant's recommendation, with labs to draw in the morning. There was consideration for a PEG tube and hospice which was reported the family is not interested in pursuing these avenues of treatment. The patient's wounds are being debrided as per surgical team's recommendation under Dr. Velasco's guidance. We are also awaiting results of pending tests including JAK2 mutation and BCR/ABL testing. This is a complex patient with a comprehensive medically necessary and appropriate visit carried out in excess of 20 minutes with the nursing staff assisting with details of the patient's hospital stay. Patricio Ferrera MD
[2018-11-03] MEDS: metroNIDAZOLE IV 500 mg/100 ml 500 MG/100 ML BAG IV SCH ×3 (05:39→22:00)
[2018-11-03] MEDS: Dextrose 5%/0.9% NS 1,000 ML IV SCH ×2 (05:42→14:28)
[2018-11-03] MEDS: Albuterol-Ipratrop 3 mg / 0.5 (3 ml) UD IH SCH ×3 (07:03→19:50)
[2018-11-03 07:12] LABS: BASO # 0.02 K/mm3 (0.0-2.0); BASO % 0.2 % (0.0-3.0); EOS % 0.2 % (1.5-5.0); GRAN # 6.59 (1.4-6.5); GRAN % 78.2 % (50.0-68.0); HEMOGLOBIN 11.2 g/dL (12.0-16.0); LYMPH # 1.3 (1.2-3.4); LYMPH % 14.8 % (22.0-35.0); MEAN CELL VOLUME 81.3 fl (80.0-105.0); MEAN CORPUSCULAR HEMOGLOBIN 26.9 pg (25.0-35.0); MEAN PLATELET VOLUME 8.1 fl (7.0-11.0); MONO # 0.6 (0.1-0.6); MONO % 6.6 % (1.0-6.0); RBC 4.17 10^6/uL (3.5-6.1); RED CELL DISTRIBUTION WIDTH 17.3 % (11.5-14.5); WHITE BLOOD COUNT 8.4 10^3/uL (4.5-11.0)
[2018-11-03 08:18] LABS: ALB/GLOB RATIO 0.7 (1.1-1.8); ALBUMIN 2.2 g/dL (3.0-4.8); ALT/SGPT 37 U/L (7-56); AST/SGOT 37 U/L (14-36); BLOOD UREA NITROGEN 7 mg/dL (7-21); CALCIUM 7.9 mg/dL (8.4-10.5); GFR NON-AFRICAN AMERICAN > 60
--- NOTE | 2018-11-03 09:16 | CT ---
Date of service: 11/02/2018 PROCEDURE: CT Abdomen and Pelvis without intravenous contrast HISTORY: GI bleed COMPARISON: None. TECHNIQUE: Unenhanced. Neither IV nor oral contrast administered Radiation dose: Total exam DLP = 257.50 mGy-cm. This CT exam was performed using one or more of the following dose reduction techniques: Automated exposure control, adjustment of the mA and/or kV according to patient size, and/or use of iterative reconstruction technique. FINDINGS: LOWER THORAX: Trace pleural effusions Small hiatal hernia. LIVER: Unremarkable. No gross lesion or ductal dilatation. GALLBLADDER AND BILE DUCTS: Unremarkable. PANCREAS: Unremarkable. No gross lesion or ductal dilatation. SPLEEN: Unremarkable. ADRENALS: Unremarkable. No mass. KIDNEYS AND URETERS: Unremarkable. No hydronephrosis. No solid mass. Exophytic cyst right kidney unchanged compared to prior studies. VASCULATURE: Atherosclerotic calcification and mural plaque present. Findings are seen throughout the aorta IVC filter identified. BOWEL: Constipation, fecal impaction without mechanical obstructing process. APPENDIX: Unremarkable. Normal appendix. PERITONEUM: Unremarkable. No free fluid. No free air. LYMPH NODES: Unremarkable. No enlarged lymph nodes. BLADDER: Adams catheter visible in a decompressed urinary bladder REPRODUCTIVE: Unremarkable. BONES: Scoliosis, secondary degenerative change at multiple levels. Compression deformities T12 and L1. OTHER FINDINGS: Cystic mass right psoas muscle 6.1 x 11.4 cm. Mean Hounsfield unit values 13.1. This represents a new finding compared to the prior study. Diffuse anasarca at the level of the pelvis extending into the visible lower extremities. IMPRESSION: Cystic retroperitoneal/right psoas mass. This represents a new finding compared to the prior study. No acute abnormalities detected. Additional benign and/or incidental findings described above. Concordant results (preliminary interpretation) provided by [employer]. Procedure Completed: 19:55. Preliminary Report: Dictated and Authenticated: 21:21. Final Interpretation: 09:09.
--- NOTE | 2018-11-03 09:57 | CP.PCM.PN ---
Subjective - Date & Time of Evaluation Date of Evaluation: 11/03/18 Time of Evaluation: 09:54 - Subjective Subjective: Prem Yusuf, PGY1 Surgery Progress Note for Dr. Pulido Patient was seen and examined at bedside this morning. Patient's dressings were changed today at the bilateral decubiti hip ulcerations. Patient is still non- verbal. An appropriate ROS was unable to be obtained as a result. No adverse overnight events. Objective - Vital Signs/Intake and Output Vital Signs (last 24 hours): Temp Pulse Resp BP Pulse Ox 97.1 F L 105 H 18 135/84 97 11/02/18 18:00 11/03/18 06:00 11/02/18 18:00 11/02/18 18:00 11/02/18 06:00 Intake and Output: 11/03/18 11/03/18 06:59 18:59 Intake Total 0 Output Total 1500 Balance -1500 - Medications Medications: Current Medications Acetaminophen (Tylenol 325mg Tab) 650 mg PO Q6H PRN PRN Reason: Pain, Mild (1-3) Albuterol/Ipratropium (Duoneb 3 Mg/0.5 Mg (3 Ml) Ud) 3 ml IH QIDRESP [facility] Last Admin: 11/03/18 07:03 Dose: 3 ml Enoxaparin Sodium (Lovenox) 40 mg SC DAILY [facility]; Protocol Ceftriaxone Sodium (Rocephin 1 Gram Ivpb) 1 gm in 100 mls @ 100 mls/hr IVPB DAILY [facility]; Protocol Last Admin: 11/02/18 10:10 Dose: 100 mls/hr Azithromycin 250 mg/ Sodium (Chloride) 250 mls @ 167 mls/hr IVPB DAILY [facility]; Protocol Last Admin: 11/02/18 10:11 Dose: 167 mls/hr Dextrose/Sodium Chloride (Dextrose 5%/0.9% Ns 1000 Ml) 1,000 mls @ 100 mls/hr IV .Q10H [facility] Last Admin: 11/03/18 05:42 Dose: 100 mls/hr Metronidazole (Flagyl) 500 mg in 100 mls @ 100 mls/hr IV Q8 [facility]; Protocol Last Admin: 11/03/18 05:39 Dose: 100 mls/hr Potassium Chloride (Potassium Chloride 20 Meq/100 Ml) 20 meq in 100 mls @ 50 mls/hr IVPB Q2H [facility] Stop: 11/03/18 12:59 Potassium Chloride (Potassium Chloride 20 Meq/100 Ml) 20 meq in 100 mls @ 50 mls/hr IVPB Q2H [facility] Stop: 11/03/18 12:59 Pantoprazole Sodium (Protonix Inj) 40 mg IVP DAILY [facility] Last Admin: 11/02/18 10:09 Dose: 40 mg Sodium Hypochlorite (Dakins Solution 0.25%) 0 ml TOP DAILY [facility] Last Admin: 11/02/18 14:51 Dose: 1 applic - Labs Labs: 11/03/18 06:35 11/03/18 06:35 PT 14.4 SECONDS (9.4-12.5) H 10/30/18 12:50 INR 1.25 10/30/18 12:50 APTT 26.2 Seconds (25.1-36.5) 10/30/18 12:50 - Constitutional Appears: No Acute Distress - Head Exam Head Exam: ATRAUMATIC, NORMOCEPHALIC - Neck Exam Additional comments: bilateral shoulder stage 1 decubiti - Respiratory Exam Respiratory Exam: Clear to Ausculation Bilateral. absent: Rales, Rhonchi, Wheezes - Cardiovascular Exam Cardiovascular Exam: RRR - GI/Abdominal Exam GI & Abdominal Exam: Soft. absent: Guarding, Rigid, Tenderness - Extremities Exam Additional comments: Stage 1 sacral decubitus ulcer w/ optifoam Stage 4 bilateral decubiti hip ulcers. 4x4 dressing with optifoam applied - Neurological Exam Neurological Exam: Alert, Awake. absent: Oriented x3 - Skin Skin Exam: Warm Assessment and Plan - Assessment and Plan (Free Text) Assessment: Patient is a 88 y/o F with multiple pressure ulcers- Bilateral Stage 4 Hip, Stage 2 Sacral, Bilateral Stage 1 shoulders s/p bedside debridement of bilateral hip ulcers on 10/31. Plan: - c/w wet to dry and daily optifoam dressing changes to the sacral wound ulcer and bilateral hip ulcers - Santyl collagenase ordered - c/w Air mattress - c/w q2h turns - c/w antibiotics as per ID - continue with primary team recommendations Further recs as per Attending Physician, Dr. Pulido
[2018-11-03] MEDS: Enoxaparin 40 mg Syringe SC SCH (11:45)
--- NOTE | 2018-11-03 13:01 | CP.PCM.PN ---
<Jose Bee - Last Filed: 11/03/18 16:18> Subjective - Date & Time of Evaluation Date of Evaluation: 11/03/18 Time of Evaluation: 10:00 - Subjective Subjective: PGY-4 GI Fellow Prog Note Pt lying in bed when seen this AM. Non-verbal. No overnight events noted. Unable to obtain ROS due to clinical condition. Objective - Vital Signs/Intake and Output Vital Signs (last 24 hours): Temp Pulse Resp BP Pulse Ox 100.1 F H 102 H 18 127/73 97 11/03/18 12:00 11/03/18 12:00 11/03/18 12:00 11/03/18 12:00 11/02/18 06:00 Intake and Output: 11/03/18 11/03/18 06:59 18:59 Intake Total 0 Output Total 1500 Balance -1500 - Medications Medications: Current Medications Acetaminophen (Tylenol 325mg Tab) 650 mg PO Q6H PRN PRN Reason: Pain, Mild (1-3) Albuterol/Ipratropium (Duoneb 3 Mg/0.5 Mg (3 Ml) Ud) 3 ml IH QIDRESP [facility] Last Admin: 11/03/18 07:03 Dose: 3 ml Collagenase (Santyl) 0 gm TOP DAILY [facility] Enoxaparin Sodium (Lovenox) 40 mg SC DAILY [facility]; Protocol Azithromycin 250 mg/ Sodium (Chloride) 250 mls @ 167 mls/hr IVPB DAILY [facility]; Protocol Last Admin: 11/02/18 10:11 Dose: 167 mls/hr Dextrose/Sodium Chloride (Dextrose 5%/0.9% Ns 1000 Ml) 1,000 mls @ 100 mls/hr IV .Q10H [facility] Last Admin: 11/03/18 05:42 Dose: 100 mls/hr Metronidazole (Flagyl) 500 mg in 100 mls @ 100 mls/hr IV Q8 [facility]; Protocol Last Admin: 11/03/18 05:39 Dose: 100 mls/hr Potassium Chloride (Potassium Chloride 20 Meq/100 Ml) 20 meq in 100 mls @ 50 mls/hr IVPB Q2H [facility] Stop: 11/03/18 12:59 Potassium Chloride (Potassium Chloride 20 Meq/100 Ml) 20 meq in 100 mls @ 50 mls/hr IVPB Q2H [facility] Stop: 11/03/18 12:59 Pantoprazole Sodium (Protonix Inj) 40 mg IVP DAILY [facility] Last Admin: 11/02/18 10:09 Dose: 40 mg - Labs Labs: 11/03/18 06:35 11/03/18 06:35 PT 14.4 SECONDS (9.4-12.5) H 10/30/18 12:50 INR 1.25 10/30/18 12:50 APTT 26.2 Seconds (25.1-36.5) 10/30/18 12:50 - Constitutional Appears: No Acute Distress, Chronically Ill - Head Exam Head Exam: ATRAUMATIC, NORMAL INSPECTION - ENT Exam ENT Exam: Mucous Membranes Dry. absent: Mucous Membranes Moist - Respiratory Exam Respiratory Exam: NORMAL BREATHING PATTERN. absent: Accessory Muscle Use, Respiratory Distress - GI/Abdominal Exam GI & Abdominal Exam: Soft, Normal Bowel Sounds. absent: Bruit, Distended, Firm, Guarding, Rigid, Tenderness, Mass, Organomegaly, Pulsatile Mass, Rebound Assessment and Plan - Assessment and Plan (Free Text) Assessment: #Dementia #Pneumonia #Malnourished #Recurrent chronic anemia likely of chronic disease #Sacral ulcers s/p debridement #DNR Plan: - CT scan with RP hematoma, likely cause of anemia; fecal impaction --- TW Enema -No obvious active GI bleed at this time. Stool occult negative. -s/p 2u pRBCs with appropriate Hgb response. -Continue supportive care, abx -Recommend high protein diet, supplements as needed. -Continue debridement, wound care per surgery -No endoscopic procedures planned at this time. -Daughter/family declined PEG/hospice. osteopathic neurologist if needed. Phone number is [phone]. Pt seen and examined with Dr. Downing; please see attestation for further recs/changes. <Walt Downing V - Last Filed: 11/03/18 22:44> Objective - Vital Signs/Intake and Output Vital Signs (last 24 hours): Temp Pulse Resp BP Pulse Ox 99.7 F H 110 H 18 171/96 H 20 L 11/03/18 17:36 11/03/18 18:00 11/03/18 12:00 11/03/18 17:36 11/03/18 17:36 Intake and Output: 11/03/18 11/04/18 18:59 06:59 Intake Total 2320 Output Total 1600 Balance 720 - Medications Medications: Current Medications Acetaminophen (Tylenol 325mg Tab) 650 mg PO Q6H PRN PRN Reason: Pain, Mild (1-3) Albuterol/Ipratropium (Duoneb 3 Mg/0.5 Mg (3 Ml) Ud) 3 ml IH QIDRESP [facility] Last Admin: 11/03/18 13:37 Dose: Not Given Collagenase (Santyl) 0 gm TOP DAILY [facility] Enoxaparin Sodium (Lovenox) 40 mg SC DAILY [facility]; Protocol Last Admin: 11/03/18 11:45 Dose: 40 mg Azithromycin 250 mg/ Sodium (Chloride) 250 mls @ 167 mls/hr IVPB DAILY [facility]; Protocol Last Admin: 11/03/18 14:27 Dose: 167 mls/hr Dextrose/Sodium Chloride (Dextrose 5%/0.9% Ns 1000 Ml) 1,000 mls @ 100 mls/hr IV .Q10H [facility] Last Admin: 11/03/18 14:28 Dose: 100 mls/hr Metronidazole (Flagyl) 500 mg in 100 mls @ 100 mls/hr IV Q8 [facility]; Protocol Last Admin: 11/03/18 17:58 Dose: 100 mls/hr Pantoprazole Sodium (Protonix Inj) 40 mg IVP DAILY [facility] Last Admin: 11/03/18 11:45 Dose: 40 mg - Labs Labs: 11/03/18 06:35 11/03/18 06:35 PT 14.8 SECONDS (9.4-12.5) H 11/03/18 10:35 INR 1.28 11/03/18 10:35 APTT 26.5 Seconds (25.1-36.5) 11/03/18 10:35 Attending/Attestation - Attestation I have personally seen and examined this patient.: Yes I have fully participated in the care of the patient.: Yes I have reviewed all pertinent clinical information, including history, physical exam and plan: Yes Notes (Text): This is an addendum to GI progress report dictated by the GI Fellow.The patient was seen and examined earlier. Medical records, lab studies, imagings were reviewed. Last 24 hours events reviewed. Agreed with the above treatment plan as outlined in GI Fellow 's notes with the addition of the following 11/03/18 22:43
--- NOTE | 2018-11-03 13:02 | CP.PCM.APN ---
Subjective - Date & Time of Evaluation Date of Evaluation: 11/03/18 Time of Evaluation: 09:10 - Subjective Subjective: Pt. seen and examined at bedside. Is contracted, moaning, non-verbal. RR easy unlabored. Review of Systems - Review of Systems Systems not reviewed;Unavailable: Dementia - Constitutional Constitutional: As Per HPI - Cardiovascular Cardiovascular: As Per HPI - Respiratory Respiratory: As Per HPI - Gastrointestinal Gastrointestinal: As Per HPI - Musculoskeletal Musculoskeletal: As Per HPI - Neurological Neurological: Loss of Vision, Other Additional comments: generalized weakness - Hematologic/Lymphatic Hematologic: As Per HPI Objective - Vital Signs/Intake and Output Vital Signs (last 24 hours): Temp Pulse Resp BP Pulse Ox 100.1 F H 102 H 18 127/73 97 11/03/18 12:00 11/03/18 12:00 11/03/18 12:00 11/03/18 12:00 11/02/18 06:00 Intake and Output: 11/03/18 11/03/18 06:59 18:59 Intake Total 0 Output Total 1500 Balance -1500 - Medications Medications: Current Medications Acetaminophen (Tylenol 325mg Tab) 650 mg PO Q6H PRN PRN Reason: Pain, Mild (1-3) Albuterol/Ipratropium (Duoneb 3 Mg/0.5 Mg (3 Ml) Ud) 3 ml IH QIDRESP [facility] Last Admin: 11/03/18 07:03 Dose: 3 ml Collagenase (Santyl) 0 gm TOP DAILY [facility] Enoxaparin Sodium (Lovenox) 40 mg SC DAILY [facility]; Protocol Azithromycin 250 mg/ Sodium (Chloride) 250 mls @ 167 mls/hr IVPB DAILY [facility]; Protocol Last Admin: 11/02/18 10:11 Dose: 167 mls/hr Dextrose/Sodium Chloride (Dextrose 5%/0.9% Ns 1000 Ml) 1,000 mls @ 100 mls/hr IV .Q10H [facility] Last Admin: 11/03/18 05:42 Dose: 100 mls/hr Metronidazole (Flagyl) 500 mg in 100 mls @ 100 mls/hr IV Q8 [facility]; Protocol Last Admin: 11/03/18 05:39 Dose: 100 mls/hr Potassium Chloride (Potassium Chloride 20 Meq/100 Ml) 20 meq in 100 mls @ 50 mls/hr IVPB Q2H [facility] Stop: 11/03/18 12:59 Potassium Chloride (Potassium Chloride 20 Meq/100 Ml) 20 meq in 100 mls @ 50 mls/hr IVPB Q2H [facility] Stop: 11/03/18 12:59 Pantoprazole Sodium (Protonix Inj) 40 mg IVP DAILY [facility] Last Admin: 11/02/18 10:09 Dose: 40 mg - Labs Labs: 11/03/18 06:35 11/03/18 06:35 PT 14.4 SECONDS (9.4-12.5) H 10/30/18 12:50 INR 1.25 10/30/18 12:50 APTT 26.2 Seconds (25.1-36.5) 10/30/18 12:50 Assessment and Plan - Assessment and Plan (Free Text) Assessment: Microbiology 10/31/18 22:30 Gram Stain - Final Hip - Left Wound Culture - Final Escherichia Coli Enterococcus Faecalis Rosalba Parapsilosis 10/30/18 12:50 Blood Culture - Preliminary Blood NO GROWTH AFTER 4 DAYS 10/30/18 16:15 Gram Stain - Final Sacral Wound Culture - Final Rosalba Parapsilosis 10/30/18 16:15 Gram Stain - Final Buttock Wound Culture - Preliminary Escherichia Coli Yeast Species 10/30/18 16:15 Gram Stain - Final Hip - Left Wound Culture - Final Escherichia Coli Rosalba Parapsilosis 10/30/18 16:15 Gram Stain - Final Other: Please Indicate Wound Culture - Final Escherichia Coli 10/30/18 13:00 Blood Culture - Preliminary Blood NO GROWTH AFTER 3 DAYS 10/30/18 16:15 Gram Stain - Final Hip - Right Wound Culture - Preliminary Escherichia Coli Yeast Species Abnormal Lab Results 11/03/18 11/03/18 06:35 06:35 WBC 8.4 D RBC 4.17 Hgb 11.2 L Hct 33.9 L MCV 81.3 MCH 26.9 MCHC 33.0 RDW 17.3 H Plt Count 343 MPV 8.1 Gran % 78.2 H Lymph % (Auto) 14.8 L [place] % (Auto) 6.6 H Eos % (Auto) 0.2 L Baso % (Auto) 0.2 Gran # 6.59 H Lymph # (Auto) 1.3 [place] # (Auto) 0.6 Eos # (Auto) 0.0 Baso # (Auto) 0.02 Sodium 134 Potassium 2.0 L* D Chloride 106 Carbon Dioxide 22 Anion Gap 8 L BUN 7 Creatinine 0.3 L Est GFR ( Amer) > 60 Est GFR (Non-Af Amer) > 60 Random Glucose 107 Calcium 7.9 L Total Bilirubin 0.4 AST 37 H ALT 37 Alkaline Phosphatase 93 Total Protein 5.4 L Albumin 2.2 L Globulin 3.2 Albumin/Globulin Ratio 0.7 L Procalcitionin-1.79 Impressions Chest X-Ray 10/30/18 12:44 IMPRESSION: Hazy change in the right lung may represent open infiltrates. Abdomen/Pelvis CT 11/02/18 15:00 IMPRESSION: Cystic retroperitoneal/right psoas mass. This represents a new finding compared to the prior study. No acute abnormalities detected. Additional benign and/or incidental findings described above. Concordant results (preliminary interpretation) provided by [facility]. Procedure Completed: 19:55. Preliminary Report: Dictated and Authenticated: 21:21. Final Interpretation: 09:09. Laboratory Results WBC 8.4 10^3/uL (4.5-11.0) D 11/03/18 06:35 RBC 4.17 10^6/uL (3.5-6.1) 11/03/18 06:35 Hgb 11.2 g/dL (12.0-16.0) L 11/03/18 06:35 Hct 33.9 % (36.0-48.0) L 11/03/18 06:35 MCV 81.3 fl (80.0-105.0) 11/03/18 06:35 MCH 26.9 pg (25.0-35.0) 11/03/18 06:35 MCHC 33.0 g/dl (31.0-37.0) 11/03/18 06:35 RDW 17.3 % (11.5-14.5) H 11/03/18 06:35 Plt Count 343 10^3/uL (120.0-450.0) 11/03/18 06:35 MPV 8.1 fl (7.0-11.0) 11/03/18 06:35 Gran % 78.2 % (50.0-68.0) H 11/03/18 06:35 Lymph % (Auto) 14.8 % (22.0-35.0) L 11/03/18 06:35 [place] % (Auto) 6.6 % (1.0-6.0) H 11/03/18 06:35 Eos % (Auto) 0.2 % (1.5-5.0) L 11/03/18 06:35 Baso % (Auto) 0.2 % (0.0-3.0) 11/03/18 06:35 Gran # 6.59 (1.4-6.5) H 11/03/18 06:35 Lymph # (Auto) 1.3 (1.2-3.4) 11/03/18 06:35 [place] # (Auto) 0.6 (0.1-0.6) 11/03/18 06:35 Eos # (Auto) 0.0 (0.0-0.7) 11/03/18 06:35 Baso # (Auto) 0.02 K/mm3 (0.0-2.0) 11/03/18 06:35 Retic Count 1.49 % (0.5-1.5) 11/01/18 06:30 PT 14.4 SECONDS (9.4-12.5) H 10/30/18 12:50 INR 1.25 10/30/18 12:50 APTT 26.2 Seconds (25.1-36.5) 10/30/18 12:50 pO2 72 mm/Hg (30-55) H 10/30/18 16:00 VBG pH 7.34 (7.32-7.43) 10/30/18 16:00 VBG pCO2 36.0 (40-60) L 10/30/18 16:00 VBG HCO3 19.4 mmol/l (21-28) L 10/30/18 16:00 VBG Total CO2 20.5 mmol.L (22-28) L 10/30/18 16:00 VBG O2 Sat (Calc) 95.1 % (40-65) H 10/30/18 16:00 VBG Base Excess -5.7 mmol/L (0.0-2.0) L 10/30/18 16:00 VBG Potassium 3.6 mmol/L (3.6-5.2) 10/30/18 16:00 Sodium 133.0 mmol/L (132-148) 10/30/18 16:00 Chloride 102.0 mmol/L (98-107) 10/30/18 16:00 Glucose 128 mg/dl (65-105) H 10/30/18 16:00 Lactate 4.7 mmol/L (0.7-2.1) H* 10/30/18 16:00 FiO2 21.0 % 10/30/18 16:00 Sodium 134 mmol/L (132-148) 11/03/18 06:35 Potassium 2.0 mmol/L (3.6-5.0) L* D 11/03/18 06:35 Chloride 106 mmol/L (98-107) 11/03/18 06:35 Carbon Dioxide 22 mmol/L (21-33) 11/03/18 06:35 Anion Gap 8 (10-20) L 11/03/18 06:35 BUN 7 mg/dL (7-21) 11/03/18 06:35 Creatinine 0.3 mg/dl (0.7-1.2) L 11/03/18 06:35 Est GFR ( Amer) > 60 11/03/18 06:35 Est GFR (Non-Af Amer) > 60 11/03/18 06:35 Random Glucose 107 mg/dL (70-110) 11/03/18 06:35 Lactic Acid 1.9 mmol/L (0.7-2.1) 10/31/18 02:00 Calcium 7.9 mg/dL (8.4-10.5) L 11/03/18 06:35 Phosphorus 2.9 mg/dL (2.5-4.5) 11/01/18 06:30 Magnesium 2.1 mg/dL (1.7-2.2) 11/01/18 06:30 Iron 16 ug/dL (45-180) L 11/01/18 06:30 TIBC 174 ug/dL (265-497) L 11/01/18 06:30 % Saturation 9 % (20-55) L 11/01/18 06:30 Ferritin 970.0 ng/mL 11/01/18 06:30 Total Bilirubin 0.4 mg/dL (0.2-1.3) 11/03/18 06:35 AST 37 U/L (14-36) H 11/03/18 06:35 ALT 37 U/L (7-56) 11/03/18 06:35 Alkaline Phosphatase 93 U/L (38-126) 11/03/18 06:35 Troponin I < 0.01 ng/mL D 10/30/18 12:50 NT-Pro-B Natriuret Pep 2930 pg/mL (0-450) H 10/30/18 12:50 Total Protein 5.4 g/dL (5.8-8.3) L 11/03/18 06:35 Albumin 2.2 g/dL (3.0-4.8) L 11/03/18 06:35 Globulin 3.2 gm/dL 11/03/18 06:35 Albumin/Globulin Ratio 0.7 (1.1-1.8) L 11/03/18 06:35 Vitamin B12 777 pg/mL (239-931) 11/01/18 06:30 Folate 10.0 ng/mL 11/01/18 06:30 Procalcitonin 1.79 NG/ML (0.19-0.49) H 11/01/18 06:30 Venous Blood Potassium 3.6 mmol/L (3.6-5.2) 10/30/18 16:00 Urine Color Yellow (YELLOW) 10/30/18 14:43 Urine Appearance Clear (CLEAR) 10/30/18 14:43 Urine pH 6.0 (4.7-8.0) 10/30/18 14:43 Ur Specific [place] 1.020 (1.005-1.035) 10/30/18 14:43 Urine Protein Trace mg/dL (<30 mg/dL) H 10/30/18 14:43 Urine Glucose (UA) Negative mg/dL (NEGATIVE) 10/30/18 14:43 Urine Ketones Negative mg/dL (NEGATIVE) 10/30/18 14:43 Urine Blood Negative (NEGATIVE) 10/30/18 14:43 Urine Nitrate Negative (NEGATIVE) 10/30/18 14:43 Urine Bilirubin Negative (NEGATIVE) 10/30/18 14:43 Urine Urobilinogen 1.0 E.U./dL (<1 E.U./dL) H 10/30/18 14:43 Ur Leukocyte Esterase Trace [place]/uL (NEGATIVE) H 10/30/18 14:43 Urine RBC 2 - 5 /hpf (0-2) H 10/30/18 14:43 Urine WBC 5 - 10 /hpf (0-6) H 10/30/18 14:43 Ur Epithelial Cells 6 - 8 /hpf (0-5) H 10/30/18 14:43 Stool Occult Blood Negative (NEGATIVE) 10/31/18 19:00 Influenza Typ A,B (EIA) Negative for flu a/b (NEGATIVE) 10/30/18 18:25 Blood Type O POSITIVE 10/31/18 17:10 Antibody Screen Negative 10/31/18 17:10 Crossmatch See Detail 10/31/18 17:10 BBK History Checked Patient has bt 10/31/18 17:10 Abdomen/Pelvis CT 11/02/18 15:00 IMPRESSION: Cystic retroperitoneal/right psoas mass. This represents a new finding compared to the prior study. No acute abnormalities detected. Additional benign and/or incidental findings described above. Concordant results (preliminary interpretation) provided by [facility]. Procedure Completed: 19:55. Preliminary Report: Dictated and Authenticated: 21:21. Final Interpretation: 09:09. Assessment/Plan: 1. Sepsis Likely secondary to Pneumonia, continue IV antibx as per I.D. 2. Pneumonia, RLL, continue IV antibiotics per I.D, awaiting duration of antibiotics. Blood Cultures negative after 4 days. 3. Anemia Improved, s/p 2 units PRBCs. Follow CBC 4. Infected hip and sacral ulcers, cultures grew E. Coli , yeast Continue IV antibiotics as per I.D. Temperature 100.9 today, leukocystosis improving on antibiotics. Procal elevated. 5. Hypokalemia K 2.0, replacement ordered, will monitor K. Plan to DC home when potassium improved,and has completed IV antibiotics. Will continue to monitor clinical status and follow closely. patient bedbound at home, cared for by and daughter. SW/CM for DC planning to home
[2018-11-03 13:43] LABS: INR 1.28; PARTIAL THROMBOPLASTIN TIME 26.5 Seconds (25.1-36.5); PROTHROMBIN TIME 14.8 SECONDS (9.4-12.5)
[2018-11-03] MEDS: Azithromycin 250 MG in Sodium Chloride 0.9% 250 ML IVPB SCH (14:27)
--- NOTE | 2018-11-03 14:40 | PN ---
DATE: 11/03/2018 PULMONARY PROGRESS NOTE REFERRING PHYSICIAN: Dr. Jim Patterson. SUBJECTIVE: The patient is lying in bed, nonverbal. No hemoptysis, hematemesis, hematuria, diarrhea, or leg swelling reported. Spoke to nursing staff this morning, the patient continues to not eat. OBJECTIVE: GENERAL: No acute distress. VITAL SIGNS: Blood pressure 127/73, pulse 102, temperature 98.1. HEENT: Small oral cavity. Crowded airway. NECK: Supple. No JVD. LUNGS: Few scattered rhonchi bilaterally. CARDIOVASCULAR: S1 and S2 audible. ABDOMEN: Soft and nontender. No distention. No organomegaly. EXTREMITIES: No bilateral lower extremity edema. The patient has multiple decubitus ulcers. NEUROLOGIC: Awake and nonverbal. Moaning occasionally. MEDICATIONS: Reviewed. Tylenol 650 mg p.o, every 6 hours when necessary for mild pain, DuoNeb 3 mL inhalation four times a day, azithromycin 250 mg daily, Santyl topically to affected area, Dextrose 5% 0.9% normal saline 1000 mL at 100 mL per hour, Lovenox 40 mg subcutaneously daily, Flagyl 500 mg every 8 hours and Protonix 40 mg daily. LABORATORY DATA: Reviewed. WBC 8.4, RBC 4.17, hemoglobin 11.2, hematocrit 33.9, and platelets 343. Sodium 134, potassium 2, chloride 106, carbon dioxide 122, anion gap 8, BUN 7, creatinine 0.3, GFR greater than 60, random glucose 107, calcium 7,9, total bilirubin 0.4, AST 37, ALT 35, alkaline phosphatase 93, total protein 5.4, albumin 2.2, globulin 3.2 and albumin-globulin ratio 0.7. Left hip wound culture final shows E. coli and enterococcus faecalis, luis angel parapsilosis. Sacral wound culture shows candid parapsilosis. Right hip wound culture shows E. coli and luis angel parapsilosis species. Left hip wound culture shows E, coli and luis angel parapsilosis. Buttocks wound shows E. coli and luis angel parapsilosis. Sacral wound culture shows candid parapsilosis. Abdominal pelvic CT scan shows cystic retroperitoneal right psoas mass, this refers as a new thing that new findings compared to prior study. No acute abnormality detected. IMPRESSION AND PLAN: Pneumonia, decubitus ulcers, dementia, anemia and malnutrition. Calorie count in progress. After reading physician note, noted that family refuses percutaneous endoscopic gastrostomy tube placement. The patient received replacement potassium this morning for low potassium level. We will repeat labs. The patient is at high risk for aspiration and therefore further pneumonia. Continue antibiotic therapy. Continue inhaled bronchodilators, head of bed elevated at 45 degrees, and aspiration precaution. Follow up with wound care and Infectious Disease as needed. Gastric prophylaxis, and deep venous thrombosis prophylaxis. Encourage by mouth intake as family refusing PEG tube. This patient was seen and examined with Dr. Ramirez. Discussed assessment and plan as described above. Thank you for this consult. We will follow with you. Patric Ybarra APN Tien Ramirez MD DONNA
[2018-11-03] MEDS: Dakin's Topical 0.25%-Half Strength (480 ml) TOP SCH (14:41)
--- NOTE | 2018-11-03 16:17 | CP.PCM.PN ---
Subjective - Date & Time of Evaluation Date of Evaluation: 11/03/18 Time of Evaluation: 09:00 - Subjective Subjective: lethargic, responsive to painful stimuli, poor oral intake <300kcal/d Objective - Vital Signs/Intake and Output Vital Signs (last 24 hours): Temp Pulse Resp BP Pulse Ox 100.1 F H 102 H 18 127/73 97 11/03/18 12:00 11/03/18 12:00 11/03/18 12:00 11/03/18 12:00 11/02/18 06:00 Intake and Output: 11/03/18 11/03/18 06:59 18:59 Intake Total 0 Output Total 1500 Balance -1500 - Medications Medications: Current Medications Acetaminophen (Tylenol 325mg Tab) 650 mg PO Q6H PRN PRN Reason: Pain, Mild (1-3) Albuterol/Ipratropium (Duoneb 3 Mg/0.5 Mg (3 Ml) Ud) 3 ml IH QIDRESP [facility] Last Admin: 11/03/18 13:37 Dose: Not Given Collagenase (Santyl) 0 gm TOP DAILY [facility] Enoxaparin Sodium (Lovenox) 40 mg SC DAILY [facility]; Protocol Last Admin: 11/03/18 11:45 Dose: 40 mg Azithromycin 250 mg/ Sodium (Chloride) 250 mls @ 167 mls/hr IVPB DAILY [facility]; Protocol Last Admin: 11/03/18 14:27 Dose: 167 mls/hr Dextrose/Sodium Chloride (Dextrose 5%/0.9% Ns 1000 Ml) 1,000 mls @ 100 mls/hr IV .Q10H [facility] Last Admin: 11/03/18 14:28 Dose: 100 mls/hr Metronidazole (Flagyl) 500 mg in 100 mls @ 100 mls/hr IV Q8 [facility]; Protocol Last Admin: 11/03/18 05:39 Dose: 100 mls/hr Pantoprazole Sodium (Protonix Inj) 40 mg IVP DAILY [facility] Last Admin: 11/03/18 11:45 Dose: 40 mg - Labs Labs: 11/03/18 06:35 11/03/18 06:35 PT 14.8 SECONDS (9.4-12.5) H 11/03/18 10:35 INR 1.28 11/03/18 10:35 APTT 26.5 Seconds (25.1-36.5) 11/03/18 10:35 - Respiratory Exam Respiratory Exam: Rales - Cardiovascular Exam Cardiovascular Exam: REGULAR RHYTHM - GI/Abdominal Exam GI & Abdominal Exam: Soft, Normal Bowel Sounds - Neurological Exam Neurological Exam: Altered Assessment and Plan (1) Psoas abscess, right Status: Acute (2) Hypokalemia Status: Acute (3) Alzheimer disease Status: Chronic - Assessment and Plan (Free Text) Plan: Potassium supplements, monitor lytes, consult Dr. Saroj Garrison possible drainage of psoas absess, pt DNR/DNI, prognosis very poor
[2018-11-04] MEDS: metroNIDAZOLE IV 500 mg/100 ml 500 MG/100 ML BAG IV SCH ×3 (06:19→23:22)
[2018-11-04] MEDS: Albuterol-Ipratrop 3 mg / 0.5 (3 ml) UD IH SCH ×4 (07:49→19:44)
[2018-11-04 08:19] LABS: BLOOD UREA NITROGEN 7 mg/dL (7-21); GFR NON-AFRICAN AMERICAN > 60
[2018-11-04] MEDS ORDERED: Potassium Chloride 40 mEq/30 ml LIQ UD PO ONE ×2 (08:22→17:53)
[2018-11-04] MEDS ORDERED: Potassium Chloride 20 MEQ in Dextrose 5%/0.9% NS 1,000 ML IV SCH (09:01)
--- NOTE | 2018-11-04 09:06 | CP.PCM.PN ---
<Maggie Fontaine - Last Filed: 11/04/18 09:03> Subjective - Date & Time of Evaluation Date of Evaluation: 11/04/18 Time of Evaluation: 07:03 - Subjective Subjective: PGY-1 Maggie Fontaine D.O. Surgery progress note for Dr. Pulido: Patient was seen and examined this morning. She is nonverbal at baseline with occasional moaning. She does not appear in acute distress. Plan is to change dressings on b/l hips daily with Santyl. ROS unobtainable due to patient's baseline mental status. Objective - Vital Signs/Intake and Output Vital Signs (last 24 hours): Temp Pulse Resp BP Pulse Ox 99.7 F H 108 H 18 171/96 H 20 L 11/03/18 17:36 11/04/18 06:00 11/03/18 12:00 11/03/18 17:36 11/03/18 17:36 Intake and Output: 11/04/18 11/04/18 06:59 18:59 Intake Total 1400 Output Total 450 Balance 950 - Medications Medications: Current Medications Acetaminophen (Tylenol 325mg Tab) 650 mg PO Q6H PRN PRN Reason: Pain, Mild (1-3) Albuterol/Ipratropium (Duoneb 3 Mg/0.5 Mg (3 Ml) Ud) 3 ml IH QIDRESP [facility] Last Admin: 11/04/18 07:49 Dose: 3 ml Collagenase (Santyl) 0 gm TOP DAILY [facility] Enoxaparin Sodium (Lovenox) 40 mg SC DAILY [facility]; Protocol Last Admin: 11/03/18 11:45 Dose: 40 mg Azithromycin 250 mg/ Sodium (Chloride) 250 mls @ 167 mls/hr IVPB DAILY [facility]; Protocol Last Admin: 11/03/18 14:27 Dose: 167 mls/hr Metronidazole (Flagyl) 500 mg in 100 mls @ 100 mls/hr IV Q8 [facility]; Protocol Last Admin: 11/04/18 06:19 Dose: 100 mls/hr Potassium Chloride 20 meq/ (Dextrose/Sodium Chloride) 1,010 mls @ 100 mls/hr IV .Q10H6M [facility] Pantoprazole Sodium (Protonix Inj) 40 mg IVP DAILY [facility] Last Admin: 11/03/18 11:45 Dose: 40 mg - Labs Labs: 11/03/18 06:35 11/04/18 07:30 PT 14.8 SECONDS (9.4-12.5) H 11/03/18 10:35 INR 1.28 11/03/18 10:35 APTT 26.5 Seconds (25.1-36.5) 11/03/18 10:35 - Constitutional Appears: No Acute Distress, Chronically Ill - Head Exam Head Exam: ATRAUMATIC - ENT Exam ENT Exam: Mucous Membranes Dry - Respiratory Exam Respiratory Exam: NORMAL BREATHING PATTERN. absent: Accessory Muscle Use, Respiratory Distress - Cardiovascular Exam Cardiovascular Exam: REGULAR RHYTHM - GI/Abdominal Exam GI & Abdominal Exam: Soft. absent: Distended, Tenderness - Extremities Exam Additional comments: b/l stage 1 shoulder decubiti b/l stage 4 hip decubiti - Back Exam Additional comments: stage 2 sacral decubitus ulcer - Neurological Exam Neurological Exam: Altered, Awake. absent: Oriented x3 - Skin Skin Exam: Normal Color, Warm Assessment and Plan - Assessment and Plan (Free Text) Assessment: 88F with multiple pressure ulcers- b/l stage 4 hips, stage 2 sacral, b/l stage 1 shoulders - Bedside I&D of b/l hip ulcers on 10/31 Plan: - Daily Santyl dressing changes to hip ulcers - Daily Optifoam dressing change to the sacral ulcer and shoulders - Air mattress - Turn Q2H - Wound Cx: E coli, Rosalba, Enterococcus, yeast - Blood Cx no growth >4 days - Continue antibiotics per ID - Adequate hydration and nutrition - Replete electrolytes PRN - Monitor CBC- s/p 2u pRBC on 11/01 - Anemia 2/2 R psoas mass/cyst/hematoma Further recs as per attending, Dr. Pulido. <Angel Pulido - Last Filed: 11/05/18 10:32> Objective - Vital Signs/Intake and Output Vital Signs (last 24 hours): Temp Pulse Resp BP Pulse Ox 98.3 F 100 H 19 125/74 95 11/05/18 06:00 11/05/18 06:00 11/05/18 06:00 11/05/18 06:00 11/04/18 12:40 Intake and Output: 11/05/18 11/05/18 06:59 18:59 Intake Total 0 Output Total 100 Balance -100 - Medications Medications: Current Medications Acetaminophen (Tylenol 325mg Tab) 650 mg PO Q6H PRN PRN Reason: Pain, Mild (1-3) Acetaminophen (Tylenol 650 Mg Supp) 650 mg RC Q6H PRN PRN Reason: Fever >100.4 F Last Admin: 11/04/18 18:55 Dose: 650 mg Albuterol/Ipratropium (Duoneb 3 Mg/0.5 Mg (3 Ml) Ud) 3 ml IH QIDRESP [facility] Last Admin: 11/05/18 08:13 Dose: 3 ml Collagenase (Santyl) 0 gm TOP DAILY [facility] Last Admin: 11/04/18 10:47 Dose: 1 unit Enoxaparin Sodium (Lovenox) 40 mg SC DAILY [facility]; Protocol Last Admin: 11/04/18 10:25 Dose: 40 mg Metronidazole (Flagyl) 500 mg in 100 mls @ 100 mls/hr IV Q8 [facility]; Protocol Last Admin: 11/05/18 06:57 Dose: 100 mls/hr Potassium Chloride 40 meq/ (Sodium Chloride) 1,020 mls @ 100 mls/hr IV .[id number] [facility] Last Admin: 11/04/18 23:27 Dose: 100 mls/hr Pantoprazole Sodium (Protonix Inj) 40 mg IVP DAILY [facility] Last Admin: 11/04/18 10:26 Dose: 40 mg - Labs Labs: 11/05/18 06:00 11/05/18 06:00 PT 14.8 SECONDS (9.4-12.5) H 11/03/18 10:35 INR 1.28 11/03/18 10:35 APTT 26.5 Seconds (25.1-36.5) 11/03/18 10:35 Assessment and Plan - Assessment and Plan (Free Text) Plan: Pt to have CT drainage of Psoas fluid collection(NO Air-doubt abscess) K replacement ongoing R Ashok GRAYSON FACS
[2018-11-04] MEDS ORDERED: Potassium Chloride 20 mEq/15 ml LIQ UD PO STA (09:23)
[2018-11-04] MEDS: Enoxaparin 40 mg Syringe SC SCH (10:25)
[2018-11-04] MEDS: Collagenase 250 Units/gm Ointment(30 gm) TOP SCH (10:47)
--- NOTE | 2018-11-04 11:30 | CP.PCM.PN ---
Subjective - Date & Time of Evaluation Date of Evaluation: 11/04/18 Time of Evaluation: 09:00 - Subjective Subjective: lethargic, arousable, NAD Objective - Vital Signs/Intake and Output Vital Signs (last 24 hours): Temp Pulse Resp BP Pulse Ox 99.7 F H 108 H 18 171/96 H 20 L 11/03/18 17:36 11/04/18 06:00 11/03/18 12:00 11/03/18 17:36 11/03/18 17:36 Intake and Output: 11/04/18 11/04/18 06:59 18:59 Intake Total 1400 Output Total 450 Balance 950 - Medications Medications: Current Medications Acetaminophen (Tylenol 325mg Tab) 650 mg PO Q6H PRN PRN Reason: Pain, Mild (1-3) Albuterol/Ipratropium (Duoneb 3 Mg/0.5 Mg (3 Ml) Ud) 3 ml IH QIDRESP [facility] Last Admin: 11/04/18 07:49 Dose: 3 ml Collagenase (Santyl) 0 gm TOP DAILY [facility] Last Admin: 11/04/18 10:47 Dose: 1 unit Enoxaparin Sodium (Lovenox) 40 mg SC DAILY [facility]; Protocol Last Admin: 11/04/18 10:25 Dose: 40 mg Azithromycin 250 mg/ Sodium (Chloride) 250 mls @ 167 mls/hr IVPB DAILY [facility]; Protocol Last Admin: 11/03/18 14:27 Dose: 167 mls/hr Metronidazole (Flagyl) 500 mg in 100 mls @ 100 mls/hr IV Q8 [facility]; Protocol Last Admin: 11/04/18 06:19 Dose: 100 mls/hr Potassium Chloride (Potassium Chloride 20 Meq/100 Ml) 20 meq in 100 mls @ 50 mls/hr IVPB Q2H [facility] Stop: 11/04/18 13:29 Last Admin: 11/04/18 10:25 Dose: 50 mls/hr Potassium Chloride 40 meq/ (Sodium Chloride) 1,020 mls @ 100 mls/hr IV .[id number] [facility] Last Admin: 11/04/18 10:12 Dose: 100 mls/hr Pantoprazole Sodium (Protonix Inj) 40 mg IVP DAILY [facility] Last Admin: 11/04/18 10:26 Dose: 40 mg - Labs Labs: 11/03/18 06:35 11/04/18 07:30 PT 14.8 SECONDS (9.4-12.5) H 11/03/18 10:35 INR 1.28 11/03/18 10:35 APTT 26.5 Seconds (25.1-36.5) 11/03/18 10:35 - Respiratory Exam Respiratory Exam: Rhonchi - Cardiovascular Exam Cardiovascular Exam: REGULAR RHYTHM - GI/Abdominal Exam GI & Abdominal Exam: Soft, Normal Bowel Sounds - Neurological Exam Neurological Exam: Altered - Skin Skin Exam: Dry, Warm Assessment and Plan (1) Psoas abscess, right Status: Acute (2) Hypokalemia Status: Acute (3) Alzheimer disease Status: Chronic - Assessment and Plan (Free Text) Plan: IV potassium supplements, monitor lytes, possible aspiration of psoas muscle fluid collection, prognosis remains very poor
[2018-11-04] MEDS ORDERED: Lidocaine 1% Inj (20ml) ONE (11:42)
--- NOTE | 2018-11-04 12:23 | PN ---
DATE: 11/04/2018 SUBJECTIVE: The patient is lying in bed, asleep, arousable, nonverbal, and moans occasionally. No acute distress. No hemoptysis, hematemesis, hematuria, diarrhea, leg swelling reported. No overnight events reported by nursing staff reports. Nursing staff reports, the patient had poor oral intake this morning. Reports that the family is able to have the patient take small amounts of supplements when they visit in the evening. OBJECTIVE: GENERAL: No acute distress. VITAL SIGNS: Blood pressure 171/96, pulse 108, and temperature 99.7. HEENT: Small oral cavity. Crowded airway. NECK: Supple. No JVD. LUNGS: Few scattered rhonchi bilaterally. CARDIOVASCULAR: S1 and S2 audible. ABDOMEN: Soft and nontender. No distention. No organomegaly. EXTREMITIES: No bilateral lower extremity edema. The patient has multiple decubitus ulcers. NEUROLOGIC: Asleep, arousable and nonverbal. Moaning at times. MEDICATIONS: Reviewed. Tylenol 650 mg every 6 hours p.r.n. for mild pain, DuoNeb 3 mL inhalation four times a day, azithromycin 250 mg daily, Santyl topically to affected area daily,Lovenox 40 mg daily, Flagyl 500 mg every 8 hours and Protonix 40 mg IV push daily, potassium chloride 20 mEq in dextrose and sodium chloride 2 bags ordered. LABORATORY DATA: Reviewed. Sodium 133, potassium 2.1, chloride 104, carbon dioxide 21, anion gap 10, BUN 7, creatinine 0.3, GFR greater than 60, random glucose 111 and calcium 8. IMPRESSION AND PLAN: Pneumonia, decubitus ulcers, dementia, anemia and malnutrition. Calorie count in progress. The patient is at high risk for aspiration and therefore high risk for further pneumonia. Continue antibiotic therapy. Continue inhaled bronchodilators, head of bed elevated at 45 degrees, and aspiration precaution, continue consult with Infectious Disease, gastric prophylaxis, deep venous thrombosis prophylaxis. Encourage p.o. intake. The patient is being supplemented with potassium. Need to repeat labs in the morning. This patient was seen and examined with Dr. Ramirez. Discussed assessment and plan as described above. Thank you for this consult and we will follow with you. Patric Prudence, ORTHODONTIC LABORATORY TECHNICIAN Tien Ramirez MD [facility] # [id number]
[2018-11-04] MEDS ORDERED: Magnesium Sulfate 1 gm in D5W 1 GM/100 ML BAG IVPB ONE (14:43)
--- NOTE | 2018-11-04 14:58 | CP.PCM.PCO ---
Physician Communication Note - Physician Communication Note Physician Communication Note: drainage Psoas abscess today,retroperitoneal hematoma,monitor K, D2 iam ct
[2018-11-04 15:40] VITALS: O2SAT 95
--- NOTE | 2018-11-04 15:51 | CP.PCM.PN ---
<Jose Bee - Last Filed: 11/04/18 15:51> Subjective - Date & Time of Evaluation Date of Evaluation: 11/04/18 Time of Evaluation: 11:55 - Subjective Subjective: PGY-4 GI Fellow Prog Note Pt lying in bed when seen this AM. Daughter at bedside. No events noted. Explained to daughter risks of aspiration with PO intake, daughter expressed understanding and confirmed no interest in PEG placement. Unable to obtain ROS due to clinical condition Objective - Vital Signs/Intake and Output Vital Signs (last 24 hours): Temp Pulse Resp BP Pulse Ox 99.3 F 118 H 30 H 123/64 95 11/04/18 12:00 11/04/18 12:40 11/04/18 12:40 11/04/18 12:40 11/04/18 12:40 Intake and Output: 11/04/18 11/04/18 06:59 18:59 Intake Total 1400 Output Total 450 Balance 950 - Medications Medications: Current Medications Acetaminophen (Tylenol 325mg Tab) 650 mg PO Q6H PRN PRN Reason: Pain, Mild (1-3) Albuterol/Ipratropium (Duoneb 3 Mg/0.5 Mg (3 Ml) Ud) 3 ml IH QIDRESP BIRD Last Admin: 11/04/18 11:50 Dose: 3 ml Bisacodyl (Dulcolax) 10 mg RC ONCE ONE Stop: 11/04/18 15:45 Collagenase (Santyl) 0 gm TOP DAILY BIRD Last Admin: 11/04/18 10:47 Dose: 1 unit Enoxaparin Sodium (Lovenox) 40 mg SC DAILY BIRD; Protocol Last Admin: 11/04/18 10:25 Dose: 40 mg Azithromycin 250 mg/ Sodium (Chloride) 250 mls @ 167 mls/hr IVPB DAILY BIRD; Protocol Last Admin: 11/03/18 14:27 Dose: 167 mls/hr Metronidazole (Flagyl) 500 mg in 100 mls @ 100 mls/hr IV Q8 BIRD; Protocol Last Admin: 11/04/18 06:19 Dose: 100 mls/hr Potassium Chloride 40 meq/ (Sodium Chloride) 1,020 mls @ 100 mls/hr IV .[id number] BIRD Last Admin: 11/04/18 10:12 Dose: 100 mls/hr Pantoprazole Sodium (Protonix Inj) 40 mg IVP DAILY BIRD Last Admin: 11/04/18 10:26 Dose: 40 mg - Labs Labs: 11/03/18 06:35 11/04/18 07:30 PT 14.8 SECONDS (9.4-12.5) H 11/03/18 10:35 INR 1.28 11/03/18 10:35 APTT 26.5 Seconds (25.1-36.5) 11/03/18 10:35 - Constitutional Appears: No Acute Distress, Cachectic, Chronically Ill - Head Exam Head Exam: ATRAUMATIC, NORMAL INSPECTION - Eye Exam Eye Exam: EOMI. absent: Scleral icterus - ENT Exam ENT Exam: Mucous Membranes Dry. absent: Mucous Membranes Moist - Respiratory Exam Respiratory Exam: NORMAL BREATHING PATTERN. absent: Accessory Muscle Use, Respiratory Distress - GI/Abdominal Exam GI & Abdominal Exam: Soft, Normal Bowel Sounds. absent: Bruit, Distended, Firm, Guarding, Rigid, Tenderness, Mass, Organomegaly, Pulsatile Mass Assessment and Plan - Assessment and Plan (Free Text) Assessment: #Dementia #Pneumonia #Malnourished #Recurrent chronic anemia likely of chronic disease #Sacral ulcers s/p debridement #DNR Plan: - CT scan with RP hematoma vs mass vs abscess, likely cause of anemia; fecal impaction -- Order dulcolax suppository given Tap Water enema not available -- Recommend repeat suppository, other enema to promote BM -No obvious active GI bleed at this time. Stool occult negative. -s/p 2u pRBCs with appropriate Hgb response. -Continue supportive care, abx -Recommend high protein diet, supplements as needed and able; speech therapy recommend Full Liq (honey thick) diet -Continue debridement, wound care per surgery -No endoscopic procedures planned at this time. -Daughter/family declined PEG/hospice. 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 Phone number is [phone]. Pt seen discussed with Dr. Downing; please see attestation for further recs/changes. Thank you for the consult; will sign off. Please call if questions. <Walt Downing V - Last Filed: 11/04/18 23:33> Objective - Vital Signs/Intake and Output Vital Signs (last 24 hours): Temp Pulse Resp BP Pulse Ox 100.8 F H 117 H 20 128/84 95 11/04/18 18:55 11/04/18 18:00 11/04/18 18:00 11/04/18 18:00 11/04/18 12:40 - Medications Medications: Current Medications Acetaminophen (Tylenol 325mg Tab) 650 mg PO Q6H PRN PRN Reason: Pain, Mild (1-3) Acetaminophen (Tylenol 650 Mg Supp) 650 mg RC Q6H PRN PRN Reason: Fever >100.4 F Last Admin: 11/04/18 18:55 Dose: 650 mg Albuterol/Ipratropium (Duoneb 3 Mg/0.5 Mg (3 Ml) Ud) 3 ml IH QIDRESP BIRD Last Admin: 11/04/18 19:44 Dose: 3 ml Collagenase (Santyl) 0 gm TOP DAILY BIRD Last Admin: 11/04/18 10:47 Dose: 1 unit Enoxaparin Sodium (Lovenox) 40 mg SC DAILY BIRD; Protocol Last Admin: 11/04/18 10:25 Dose: 40 mg Azithromycin 250 mg/ Sodium (Chloride) 250 mls @ 167 mls/hr IVPB DAILY BIRD; Protocol Last Admin: 11/04/18 19:00 Dose: 167 mls/hr Metronidazole (Flagyl) 500 mg in 100 mls @ 100 mls/hr IV Q8 BIRD; Protocol Last Admin: 11/04/18 23:22 Dose: 100 mls/hr Potassium Chloride 40 meq/ (Sodium Chloride) 1,020 mls @ 100 mls/hr IV .[id number] BIRD Last Admin: 11/04/18 19:57 Dose: Not Given Pantoprazole Sodium (Protonix Inj) 40 mg IVP DAILY BIRD Last Admin: 11/04/18 10:26 Dose: 40 mg - Labs Labs: 11/03/18 06:35 11/04/18 16:42 PT 14.8 SECONDS (9.4-12.5) H 11/03/18 10:35 INR 1.28 11/03/18 10:35 APTT 26.5 Seconds (25.1-36.5) 11/03/18 10:35 Attending/Attestation - Attestation I have personally seen and examined this patient.: Yes I have fully participated in the care of the patient.: Yes I have reviewed all pertinent clinical information, including history, physical exam and plan: Yes Notes (Text): This is an addendum to GI progress report dictated by the GI Fellow. The patient was seen and examined earlier. Medical records, lab studies, imagings were reviewed. Last 24 hours events reviewed. Agreed with the above treatment plan as outlined in GI Fellow 's notes with the addition of the following status post drainage of psoas collection by Dr. Saroj Garrison Nearly 200 cc of straw-colored fluid aspirated Follow-up hemoglobin Pure diet with assistance Family declined PEG tube placement 11/04/18 23:30
[2018-11-04 17:06] LABS: BLOOD UREA NITROGEN 7 mg/dL (7-21); CALCIUM 7.9 mg/dL (8.4-10.5); GFR NON-AFRICAN AMERICAN > 60
[2018-11-04] MEDS: Azithromycin 250 MG in Sodium Chloride 0.9% 250 ML IVPB SCH (19:00)
--- NOTE | 2018-11-04 19:03 | CT ---
PROCEDURE: CT guided retroperitoneal aspiration HISTORY: 8 cm low-attenuation right ileo psoas collection. Evaluate for abscess or hematoma. PHYSICIAN(S): Saroj Garrison MD. TECHNIQUE: The relative risks and indications of the procedure were explained to the patient's daughter and consent obtained. The patient was placed slight left decubitus position on the CT scanner and preliminary images through the lower abdomen and pelvis obtained. Conscious sedation and monitoring were provided throughout the procedure by a nurse. There is an 8 cm well-circumscribed low-attenuation collection involving the right iliopsoas muscle.. A right posterior lateral approach was selected and the area prepped and draped in the usual sterile fashion. 1% Xylocaine was used to anesthetize the skin and soft tissues. A 7 Armenian paracentesis catheter was advanced into the collection and 200 cc of clear yellow-hatfield fluid aspirated. The fluid was not grossly bloody or purulent. The specimen was sent for microbiology and cytology. IMPRESSION: 1. CT-guided right retroperitoneal aspiration as described above.
--- NOTE | 2018-11-05 01:06 | PN ---
DATE: 11/04/2018 This is [facility] [place] [facility] visit on the telemetry floor. For Dr. Tucker. SUBJECTIVE: The patient is an 88-year-old female, seen lying in a position, unresponsive to verbal stimuli with nebulizer treatment being taken, appearing in no acute distress. She is admitted for electrolyte imbalance with anemia which has since improved. Now with hypokalemia, being treated. OBJECTIVE/PHYSICAL EXAMINATION: VITAL SIGNS: Temperature 100.3, pulse 117, respirations 20, blood pressure 128/84, pulse ox 95%. HEENT: Unremarkable nebulizer treatment. NECK: Supple. HEART: Tachy rate, regular rhythm. LUNGS: Scattered rhonchi. ABDOMEN: Soft. EXTREMITIES: Contracted. No edema. SKIN: Ulcers noted in multiple sites with dressings. NEUROLOGIC: Lethargic but arousable to open eyes. LABORATORY DATA: The patient's labs were done yesterday with a CBC of white blood cell count 8.4, hemoglobin 12.2, hematocrit 33.9, platelet count of 343,000 with a metabolic panel done today showing a potassium of 3.3 improved from 2 yesterday and 2.1 earlier today with replenishment. INR was done, yesterday it was 1.28. It should be noted that the patient's hemoglobin was dramatically improved by transfusion of one unit of packed red blood cells with a reported hemoglobin of 7.5 on 11/01/2018 with a value of 11.3 the following day. We will check labs again in the morning. ASSESSMENT: For this patient is that of symptomatic anemia, now corrected; pneumonia; decubiti; electrolyte imbalance; Alzheimer's disease; cachexia; failure to thrive. Plan is to continue present medical regimen with correction of electrolyte imbalance with further recommendations as per consultants. She continues to be a Do Not Resuscitate/ Do Not Intubate. Prognosis for this patient is guarded. Patricio Ferrera MD
[2018-11-05 06:41] LABS: HEMOGLOBIN 10.1 g/dL (12.0-16.0); MEAN CELL VOLUME 82.8 fl (80.0-105.0); MEAN CORPUSCULAR HEMOGLOBIN 26.4 pg (25.0-35.0); MEAN CORPUSCULAR HGB CONC 31.9 g/dl (31.0-37.0); MEAN PLATELET VOLUME 8.5 fl (7.0-11.0); RBC 3.83 10^6/uL (3.5-6.1); WHITE BLOOD COUNT 9.4 10^3/uL (4.5-11.0)
[2018-11-05] MEDS: metroNIDAZOLE IV 500 mg/100 ml 500 MG/100 ML BAG IV SCH (06:57)
[2018-11-05 07:18] LABS: BLOOD UREA NITROGEN 7 mg/dL (7-21); CALCIUM 7.7 mg/dL (8.4-10.5); GFR NON-AFRICAN AMERICAN > 60
[2018-11-05] MEDS: Albuterol-Ipratrop 3 mg / 0.5 (3 ml) UD IH SCH ×3 (08:13→15:27)
--- NOTE | 2018-11-05 10:39 | CP.PCM.PCO ---
Physician Communication Note - Physician Communication Note Physician Communication Note: Psoas cyst c/s no growth 24H
[2018-11-05] MEDS: Azithromycin 250 MG in Sodium Chloride 0.9% 250 ML IVPB SCH (10:58)
[2018-11-05] MEDS: Enoxaparin 40 mg Syringe SC SCH (10:58)
--- NOTE | 2018-11-05 11:12 | PN ---
DATE: 11/05/2018 PULMONARY PROGRESS NOTE REFERRING PHYSICIAN: Dr. Patterson. SUBJECTIVE: The patient is lying in bed. Head of bed elevated, asleep, arousable, and nonverbal. No acute distress. No hemoptysis, hematemesis, hematuria, diarrhea, or leg swelling reported. No overnight events reported, by nursing staff, continues with poor oral intake. OBJECTIVE: GENERAL: No acute distress. VITAL SIGNS: Blood pressure 125/74, pulse 100 and temperature 98.3. HEENT: Small oral cavity. Crowded airway. Right eye blind. NECK: Supple. No JVD. LUNGS: Few rhonchi bilaterally. CARDIOVASCULAR: S1 and S2 audible. ABDOMEN: Soft and nontender. No distention. No organomegaly. EXTREMITIES: No bilateral lower extremity edema, multiple decubitus ulcers. NEUROLOGIC: Asleep, arousable and nonverbal. MEDICATIONS: Reviewed. Tylenol 650 mg every 6 hours p.r.n. for mild pain, Tylenol 650 every 6 hours p.r.n. for fever greater than 100.4, DuoNeb 3 mL inhalation four times a day, Santyl topically to affected area daily, Lovenox 40 mg subcutaneously daily, Flagyl 500 mg every 8 hours, Protonix 40 mg daily, potassium chloride 40 mEq IV. LABORATORY DATA: Reviewed. WBC 9.4, RBC 3.83, hemoglobin 10.1, hematocrit 31.7, and platelets 257. Sodium 133, potassium 4.2, chloride 110, carbon dioxide 99, anion gap 8, BUN 7, creatinine 0.3, GFR greater than 60, random glucose 78, calcium 7,7, phosphorus 1.9 and magnesium 1.7. Abscess drainage 7-Armenian paracentesis catheter was advanced into the collection and 200 mL of clear yellow-tanned fluid with aspirated, fluid sent for microbiology and cytology. IMPRESSION AND PLAN: Pneumonia, decubitus ulcers, dementia, anemia and malnutrition. The patient is at high risk for aspiration and therefore high risk for further pneumonia. Continue antibiotic therapy. Continue inhaled bronchodilators, head of bed elevated at 45 degrees, and aspiration precaution. Dr. Ramirez spoke with family last night regarding the patient's current p.o. status and malnutrition. Continue to encourage p.o. intake. Family does not want PEG tube. Gastric prophylaxis, deep venous thrombosis prophylaxis. This patient was seen and examined with Dr. Ramirez. Discussed assessment and plan as described above. Thank you for this consult and we will follow with you. Patric Ybarra APN Tien Ramirez MD [facility]
[2018-11-05 12:23] VITALS: BP 129/74; RESP 16; TEMP 97.6
[2018-11-05] MEDS: Collagenase 250 Units/gm Ointment(30 gm) TOP SCH (17:51)
[2018-11-05 17:55] VITALS: PULSE 108
--- NOTE | 2018-11-05 23:48 | DS ---
HOSPITAL COURSE The patient is an 88-year-old female admitted through the emergency department on 10/30/2018 with productive cough. The patient was treated with intravenous antibiotics. Her hospital course was complicated by development of an abscess of the right psoas muscle. She underwent incision and drainage by Dr. Saroj Garrison on 11/04/2018 with aspiration of 200 mL clear yellow fluid. The patient has remained afebrile. Her electrolyte abnormalities including hypokalemia has been corrected and she is medically stable for discharge. PHYSICAL EXAMINATION: VITAL SIGNS: Blood pressure 129/74, temperature 97.6, pulse 92, respiratory rate 16. LUNGS: Clear. HEART: Regular rate and rhythm. ABDOMEN: Soft, nontender. Bowel sounds normoactive. EXTREMITIES: Flexion and contractures of the knees and hips bilaterally with grade II to III pressure ulcers of the sacrum and hip. NEUROLOGIC: The patient is lethargic and confused without focal sensory or motor deficits. IMPRESSION: 1. Advanced Alzheimer's disease. 2. Status post drainage abscess right psoas muscle. 3. Hypertension. 4. Hypokalemia, improved. 5. Community-acquired pneumonia, clinically improved: PLAN: The patient will be discharged to home on no medications. She will be maintained on a heart-healthy diet. ACTIVITY: The patient is bed-bound. She will be followed up within next 1 to 2 weeks as an outpatient. ANGLE Cheng MD
--- NOTE | 2018-11-08 09:30 | PN ---
[facility] # [id number]
== END 2018-11-05 17:57 | disposition home health service (06) | DRG 853 ==
LOC: ED 12:20 → ERH 14:08 → 2RNO 18:19
PROVIDERS: ADMIT Internal Medicine; ATTEND Internal Medicine
PROC: 0JB70ZZ Excision of Back Subcutaneous Tissue and Fascia, Open Approach (ICD-10-PCS; principal; 2018-10-31)
PROC: 30233N1 Transfusion of Nonautologous Red Blood Cells into Peripheral Vein, Percutaneous Approach (ICD-10-PCS; 2018-11-01)
PROC: 0W9H3ZX Drainage of Retroperitoneum, Percutaneous Approach, Diagnostic (ICD-10-PCS; 2018-11-04)
DX: A41.9 Sepsis, unspecified organism (principal); J18.9 Pneumonia, unspecified organism; L89.623 Pressure ulcer of left heel, stage 3; L89.214 Pressure ulcer of right hip, stage 4; L89.224 Pressure ulcer of left hip, stage 4; K68.12 Psoas muscle abscess; E46 Unspecified protein-calorie malnutrition; R64 Cachexia; R13.10 Dysphagia, unspecified; I95.9 Hypotension, unspecified; E87.6 Hypokalemia; L89.152 Pressure ulcer of sacral region, stage 2; L89.121 Pressure ulcer of left upper back, stage 1; L89.111 Pressure ulcer of right upper back, stage 1; I10 Essential (primary) hypertension; G30.9 Alzheimer's disease, unspecified; F02.80 Dementia in other diseases classified elsewhere, unspecified severity, without behavioral disturbance, psychotic disturbance, mood disturbance, and anxiety; D50.9 Iron deficiency anemia, unspecified; E86.0 Dehydration; B96.20 Unspecified Escherichia coli [E. coli] as the cause of diseases classified elsewhere; B95.2 Enterococcus as the cause of diseases classified elsewhere; Z66 Do not resuscitate; R62.7 Adult failure to thrive; H54.61 Unqualified visual loss, right eye, normal vision left eye; Z68.23 Body mass index [BMI] 23.0-23.9, adult; Z74.01 Bed confinement status

== ENCOUNTER 2018-11-07 15:52 | Inpatient (IN) | payer MEDICARE, OTHER ==
[2018-11-07] MEDS ORDERED: Albuterol-Ipratrop 3 mg / 0.5 (3 ml) UD IH STA (16:09)
[2018-11-07] MEDS ORDERED: Piperacillin/Tazobact 3.375 gm 100 ML IVPB STA (16:12)
--- NOTE | 2018-11-07 16:17 | ED PDOC ---
Arrival/HPI - General Chief Complaint: Shortness Of Breath Time Seen by Provider: 11/07/18 15:56 Historian: Spouse, Family (daughter), EMS EM Caveat: Acuity of Condition - Critical Care Critical Care Minutes: 30 minutes - History of Present Illness Time/Duration: Other (this morning) Symptom Onset: Gradual Symptom Course: Worsening Severity Level: Severe Activities at Onset: Rest Associated Symptoms (Text): 11/07/18 16:13 To the emergency department from home via ambulance accompanied by and daughter. Patient lives at home with family. She is cared for by family. She is nonverbal and unable to give any history. History is obtained from the daughter and EMS. reports that since this morning she has been out of breath increasingly worse all day. She has a cough congestion and sounds full of fluid. There is been no fever. No vomiting. She has a sacral, and bilateral heel and bilateral hip ulcers. I had a long discussion with the and daughter. The does not want any heroic measures. He states if God wants her then let her go. She is in severe respiratory distress. Accessory muscle use retractions and tachypneic. Her lung sounds have rales and rhonchi and wheezing bilaterally. She responds to painful stimuli only. 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) - Renal Hx Renal Disorder: No - Endocrine/Metabolic Hx Endocrine Disorders: No - Hematological/Oncological Hx Blood Disorders: No - Integumentary Hx Dermatological Disorder: No - Musculoskeletal/Rheumatological Hx Musculoskeletal Disorders: Yes - Gastrointestinal Hx Crohn's Disease: Yes - Genitourinary/Gynecological Hx Incontinence: Yes - Psychiatric Hx Emotional Abuse: No Hx Physical Abuse: No Hx Substance Use: No - Surgical History Other/Comment: colon sx in 8 yrs ago - Anesthesia Hx Anesthesia: Yes Hx Anesthesia Reactions: No Hx Malignant Hyperthermia: No - Suicidal Assessment Feels Threatened In Home Enviroment: No Family/Social History - Physician Review Nursing Documentation Reviewed: Yes Family/Social History: Unknown Family HX Smoking Status: Never Smoked Hx Alcohol Use: No Hx Substance Use: No Hx Substance Use Treatment: No Allergies/Home Meds Allergies/Adverse Reactions: Allergies No Known Allergies Allergy (Verified 10/30/18 12:22) Review of Systems - Review of Systems Systems not reviewed;Unavailable: Acuity of Condition Physical Exam Temperature: Afebrile Blood Pressure: Normal Pulse: Tachycardic Respiratory Rate: Tachypneic Appearance: Positive for: Ill-Appearing Pain Distress: None Mental Status: Positive for: other (responds to painful stimuli only. Severe respiratory distress.) - Systems Exam Head: Present: Atraumatic, Normocephalic Pupils: Present: PERRL Extroacular Muscles: Present: EOMI Conjunctiva: Present: Normal Mouth: Present: Moist Mucous Membranes Respiratory/Chest: Present: Respiratory Distress, Accessory Muscle Use, Wheezes, Decreased Breath Sounds, Rales, Retracting, Rhonchi, Tachypneic Cardiovascular: Present: Regular Rate and Rhythm, Tachycardic Abdomen: No: Tenderness, Distention, Peritoneal Signs, Rebound, Guarding Upper Extremity: Present: Normal Inspection Lower Extremity: Present: Normal Inspection Skin: Present: Warm, Dry, Normal Color, Other (Sacral, bilateral hip, bilateral heel decubitus ulcers.). No: Rashes Medical Decision Making ED Course and Treatment: 11/07/18 16:19 EKG shows sinus tachycardia rate approximately 130 with poor R-wave progression, Q waves inferiorly and nonspecific ST and T-wave changes. - RAD Interpretation Radiology Orders: 11/07/18 16:07 CHEST PORTABLE [RAD] Stat X-ray chest one view shows bilateral increased markings. No definite infiltrate or effusion. No cardiomegaly. Technical Account Manager: ED Physician - Medication Orders Current Medication Orders: Discontinued Medications Albuterol/Ipratropium (Duoneb 3 Mg/0.5 Mg (3 Ml) Ud) 3 ml IH ONCE STA Stop: 11/07/18 16:10 Disposition/Present on Arrival - Present on Arrival Any Indicators Present on Arrival: No History of DVT/PE: No History of Uncontrolled Diabetes: No Urinary Catheter: Yes History of Decub. Ulcer: Yes (multiple decube ulcers) History Surgical Site Infection Following: None - Disposition Have Diagnosis and Disposition been Completed?: Yes Diagnosis: Pneumonia, Sepsis, Fever, Leukocytosis, Tachycardia, Myocardial infarction, Congestive heart failure, Hypoxia Disposition: HOSPITALIZED Disposition Time: 18:21 Patient Plan: Admission, Telemetry Patient Problems: Current Active Problems Problem Status Onset Congestive heart failure Acute Fever Acute Hypoxia Acute Leukocytosis Acute Myocardial infarction Acute Pneumonia Acute Sepsis Acute Tachycardia Acute Condition: CRITICAL
[2018-11-07 16:42] LABS: VENOUS BLOOD GAS BASE EXCESS -5.5 mmol/L (0.0-2.0); VENOUS BLOOD GAS PO2 82 mm/Hg (30-55); VENOUS BLOOD PH 7.23 (7.32-7.43)
[2018-11-07 16:45] LABS: BASO # 0.04 K/mm3 (0.0-2.0); BASO % 0.2 % (0.0-3.0); EOS # 0.2 (0.0-0.7); EOS % 0.9 % (1.5-5.0); GRAN # 14.59 (1.4-6.5); GRAN % 71.9 % (50.0-68.0); LYMPH % 19.6 % (22.0-35.0); MEAN CORPUSCULAR HEMOGLOBIN 26.8 pg (25.0-35.0); MEAN CORPUSCULAR HGB CONC 31.6 g/dl (31.0-37.0); MEAN PLATELET VOLUME 9.2 fl (7.0-11.0); MONO # 1.5 (0.1-0.6); MONO % 7.4 % (1.0-6.0); RBC 4.47 10^6/uL (3.5-6.1); RED CELL DISTRIBUTION WIDTH 17.9 % (11.5-14.5); WHITE BLOOD COUNT 20.3 10^3/uL (4.5-11.0)
--- NOTE | 2018-11-07 16:45 | RAD ---
HISTORY: Sepsis Patient COMPARISON: Chest x-ray performed 10/30/18 TECHNIQUE: Chest, one view. FINDINGS: Examination limited by habitus patient obliquity. LUNGS: Moderate interstitial edema or infection. Patchy apical opacities may reflect atelectasis or pneumonia. PLEURA: No significant pleural effusion identified. No definite pneumothorax . CARDIOVASCULAR: Cardiomegaly. Ectatic aorta. Atherosclerotic calcifications. OSSEOUS STRUCTURES: Osseous demineralization. Degenerative changes. VISUALIZED UPPER ABDOMEN: Unremarkable. OTHER FINDINGS: None. IMPRESSION: Moderate interstitial edema or infection. Patchy apical opacities may reflect atelectasis or pneumonia. Cardiomegaly.
[2018-11-07 16:50] LABS: INR 1.23; PARTIAL THROMBOPLASTIN TIME 28.9 Seconds (25.1-36.5); PROTHROMBIN TIME 14.1 SECONDS (9.4-12.5)
[2018-11-07 16:52] LABS: ALB/GLOB RATIO 0.7 (1.1-1.8); ALBUMIN 2.4 g/dL (3.0-4.8); ALT/SGPT 36 U/L (7-56); AST/SGOT 48 U/L (14-36); BLOOD UREA NITROGEN 9 mg/dL (7-21); CALCIUM 8.2 mg/dL (8.4-10.5); GFR NON-AFRICAN AMERICAN > 60
[2018-11-07 17:09] LABS: B-TYPE NATRIURETIC PEPTIDE 1680 pg/mL (0-450)
[2018-11-07 17:14] LABS: URINE BILIRUBIN NEGATIVE (NEGATIVE); URINE BLOOD MODERATE (NEGATIVE); URINE GLUCOSE (UA) NEGATIVE (NEGATIVE); URINE LEUKOCYTE ESTERASE TRACE Leu/uL (NEGATIVE); URINE PROTEIN 100 mg/dL (<30 mg/dL); URINE UROBILINOGEN 0.2 E.U./dL (<1 E.U./dL)
[2018-11-07 17:15] LABS: URINE APPEARANCE CLEAR (CLEAR); URINE COLOR YELLOW (YELLOW)
[2018-11-07 17:24] LABS: TROPONIN I 0.28 ng/mL
[2018-11-07] MEDS: Nitroglycerin 2% Ointment Foilpak UD TOP STA ×2 (18:19→18:54)
[2018-11-07 19:52] LABS: VENOUS BLOOD GAS BASE EXCESS -7.3 mmol/L (0.0-2.0); VENOUS BLOOD GAS PO2 54 mm/Hg (30-55); VENOUS BLOOD PH 7.29 (7.32-7.43)
[2018-11-07] MEDS ORDERED: Sodium Chloride 0.9% 1,000 ML IV STA (22:03)
[2018-11-07 22:34] VITALS: BMI 20.2
[2018-11-08] MEDS ORDERED: Dextrose 5%/0.9% NS 1,000 ML IV SCH (06:30)
[2018-11-08] MEDS: Piperacillin/Tazobact 3.375 gm 100 ML IVPB SCH ×3 (06:47→18:59)
--- NOTE | 2018-11-08 10:38 | CARD ---
APPROVED REPORT Date of service: 11/07/2018 EKG Measurement Heart [id number] <Conclusion> Sinus tachycardia Left axis deviation Low voltage QRS Inferior infarct, age Old? Possible Anterolateral infarct, age Old? Abnormal ECG
[2018-11-08 11:39] LABS: MEAN CELL VOLUME 85.1 fl (80.0-105.0); MEAN CORPUSCULAR HEMOGLOBIN 27.5 pg (25.0-35.0); MEAN CORPUSCULAR HGB CONC 32.4 g/dl (31.0-37.0); RBC 3.63 10^6/uL (3.5-6.1); RED CELL DISTRIBUTION WIDTH 17.8 % (11.5-14.5); WHITE BLOOD COUNT 18.3 10^3/uL (4.5-11.0)
[2018-11-08 11:52] LABS: ALB/GLOB RATIO 0.7 (1.1-1.8); ALBUMIN 2.1 g/dL (3.0-4.8); ALT/SGPT 29 U/L (7-56); AST/SGOT 28 U/L (14-36); BLOOD UREA NITROGEN 11 mg/dL (7-21); CALCIUM 8.3 mg/dL (8.4-10.5); GFR NON-AFRICAN AMERICAN > 60
--- NOTE | 2018-11-08 13:38 | HP ---
DATE OF EXAM: 11/08/2018 HISTORY OF PRESENT ILLNESS: The patient is an 88-year-old female with a history of progressive Alzheimer's dementia, admitted through the emergency room with cough and congestion x1 day. The patient has had 2 previous admissions over the past 2 months for failure to thrive and various infections including infected sacral and heel pressure ulcers and a possible abscess of the right psoas muscle which was drained by Dr. Saroj Garrison approximately 1 week ago. The patient's past medical history includes hypertension and Alzheimer's disease. The patient has no significant past surgical history and is on no current medications. ALLERGIES: THE PATIENT HAS NO KNOWN DRUG ALLERGIES. FAMILY HISTORY: Noncontributory. SOCIAL HISTORY The patient has no history of alcohol or tobacco use. She lives with her and is totally dependent with ADLs and IADLs. REVIEW OF SYSTEMS: Unobtainable secondary to the patient's advanced dementia. PHYSICAL EXAMINATION GENERAL: The patient is a well-developed, cachectic female, in no acute distress. VITAL SIGNS: Blood pressure 99/63, pulse 104, temperature 97.9 axillary, respiratory rate 20. HEENT: Head is normocephalic, atraumatic. Pupils equal, round, reactive to light. Extraocular movements intact. NECK: Supple. No thyromegaly. No carotid bruit. No adenopathy. LUNGS: Show a few crepitations at the bases bilaterally. HEART: Regular rate and rhythm. ABDOMEN: Soft, nontender. No guarding, no rebound. Bowel sounds are hypoactive. EXTREMITIES: Without cyanosis or clubbing. There is bilateral 1 to 2+ anasarca. NEUROLOGIC: The patient is lethargic, responsive to painful stimuli only. There are no focal sensory or motor deficits that are elicited. SKIN: Warm and dry. There are pressure ulcers involving the sacrum, hip, and heels which are in various stages of healing. Dressings are clean and intact. LABORATORY DATA: WBC is 20.3, hemoglobin 12.0, hematocrit 38.0. Sodium 134, potassium 4.0, chloride 105, CO2 of 23, BUN 9, creatinine 0.4, glucose 158, calcium 8.2. Troponin is elevated at 0.28. BNP 1680. DIAGNOSTIC DATA: Chest x-rays shows moderate interstitial edema or infection with patchy apical opacities which may reflect atelectasis or pneumonia. IMPRESSION: 1. Coronary artery disease, rule out acute ischemia/infarct. 2. Leukocytosis, rule out pneumonia, rule out infected pressure ulcers of the sacrum and hip, rule out urinary tract infection, rule out right psoas muscle abscess. 3. Advanced Alzheimer's disease. PLAN: The patient is admitted to the telemetry unit. She is DNR/DNI at family's request. Prognosis is essentially terminal. We will start empiric IV antibiotics with Zosyn 3.375 g IV every 6 hours, cautious IV hydration. The patient is not a candidate for any cardiac intervention or procedures due to her advanced dementia. We will discuss possible hospice with family and social work for discharge planning. ANGEL Cheng MD
[2018-11-08] MEDS: Albuterol-Ipratrop 3 mg / 0.5 (3 ml) UD IH SCH ×3 (14:33→20:00)
[2018-11-08] MEDS: Potassium Chloride 20 MEQ in Dextrose 5%/0.9% NS 1,000 ML IV SCH (18:59)
--- NOTE | 2018-11-08 19:58 | CP.PCM.PCO ---
Physician Communication Note - Physician Communication Note Physician Communication Note: Pt was dc home on 11/05,readmitted w.resp distress,nstemi,on nrb
[2018-11-09] MEDS: Piperacillin/Tazobact 3.375 gm 100 ML IVPB SCH ×2 (00:45→06:04)
[2018-11-09] MEDS: Albuterol-Ipratrop 3 mg / 0.5 (3 ml) UD IH SCH ×7 (00:51→20:07)
[2018-11-09 07:40] LABS: HEMOGLOBIN 9.5 g/dL (12.0-16.0); MEAN CELL VOLUME 85.4 fl (80.0-105.0); MEAN CORPUSCULAR HEMOGLOBIN 26.7 pg (25.0-35.0); MEAN CORPUSCULAR HGB CONC 31.3 g/dl (31.0-37.0); MEAN PLATELET VOLUME 9.2 fl (7.0-11.0); RBC 3.56 10^6/uL (3.5-6.1); RED CELL DISTRIBUTION WIDTH 17.9 % (11.5-14.5); WHITE BLOOD COUNT 14.9 10^3/uL (4.5-11.0)
[2018-11-09 07:57] LABS: ALB/GLOB RATIO 0.7 (1.1-1.8); ALBUMIN 2.1 g/dL (3.0-4.8); ALT/SGPT 26 U/L (7-56); AST/SGOT 25 U/L (14-36); BLOOD UREA NITROGEN 13 mg/dL (7-21); CALCIUM 8.4 mg/dL (8.4-10.5); GFR NON-AFRICAN AMERICAN > 60
[2018-11-09] MEDS: Potassium Chloride 20 MEQ in Dextrose 5%/0.9% NS 1,000 ML IV SCH (11:08)
[2018-11-09] MEDS ORDERED: Piperacill/Tazo 4.5gm in NS 4.5 GM/100 ML BAG IVPB SCH (12:00)
--- NOTE | 2018-11-09 12:44 | CP.PCM.PN ---
Subjective - Date & Time of Evaluation Date of Evaluation: 11/09/18 Time of Evaluation: 09:00 - Subjective Subjective: resting comfortably, NAD Objective - Vital Signs/Intake and Output Vital Signs (last 24 hours): Temp Pulse Resp BP Pulse Ox 98.1 F 115 H 18 100/63 96 11/09/18 12:00 11/09/18 12:00 11/09/18 12:00 11/09/18 12:00 11/09/18 06:00 Intake and Output: 11/09/18 11/09/18 06:59 18:59 Intake Total 1053 Output Total 200 Balance 853 - Medications Medications: Current Medications Albuterol/Ipratropium (Duoneb 3 Mg/0.5 Mg (3 Ml) Ud) 3 ml IH [id number] BIRD Last Admin: 11/09/18 11:07 Dose: 3 ml Potassium Chloride 20 meq/ (Dextrose/Sodium Chloride) 1,010 mls @ 60 mls/hr IV .[id number] BIRD Last Admin: 11/09/18 11:08 Dose: Not Given Piperacillin Sod/Tazobactam Sod (Zosyn 4.5 Gm In Ns 100ml) 4.5 gm in 100 mls @ 25 mls/hr IVPB Q6 BIRD; Protocol Stop: 11/09/18 21:59 - Labs Labs: 11/09/18 07:15 11/09/18 07:15 PT 14.1 SECONDS (9.4-12.5) H 11/07/18 16:30 INR 1.23 11/07/18 16:30 APTT 28.9 Seconds (25.1-36.5) 11/07/18 16:30 - Respiratory Exam Respiratory Exam: Rhonchi, NORMAL BREATHING PATTERN - Cardiovascular Exam Cardiovascular Exam: REGULAR RHYTHM - GI/Abdominal Exam GI & Abdominal Exam: Soft, Normal Bowel Sounds - Extremities Exam Extremities Exam: Normal Inspection - Neurological Exam Neurological Exam: Alert, Awake - Skin Skin Exam: Dry, Warm Assessment and Plan (1) Myocardial infarction Status: Acute (2) Pneumonia Status: Acute (3) Tachycardia Status: Acute (4) Alzheimer disease Status: Chronic - Assessment and Plan (Free Text) Plan: continue supportive care, IV Abx, wound care, pt DNR/DNI, prognosis terminal
--- NOTE | 2018-11-09 13:30 | CP.PCM.PCO ---
Physician Communication Note - Physician Communication Note Physician Communication Note: treatment for PNA and multiple ulcers, repeat CXR in am, cultures pending
[2018-11-09 18:18] LABS: ALB/GLOB RATIO 0.7 (1.1-1.8); ALBUMIN 2.4 g/dL (3.0-4.8); ALT/SGPT 21 U/L (7-56); AST/SGOT 24 U/L (14-36); BLOOD UREA NITROGEN 15 mg/dL (7-21); CALCIUM 8.6 mg/dL (8.4-10.5); GFR NON-AFRICAN AMERICAN > 60
[2018-11-09 18:40] LABS: B-TYPE NATRIURETIC PEPTIDE 18200 pg/mL (0-450); TROPONIN I 0.17 ng/mL
[2018-11-09] MEDS: Meropenem IV 1 gm in NS 1 GM/50 ML BAG IVPB SCH (21:31)
--- NOTE | 2018-11-10 00:32 | CON ---
DATE: 11/09/2018 The patient is in bed, in no acute distress, nontoxic, however, chronically ill. CHIEF COMPLAINT: Fever x1 day. HISTORY OF PRESENT ILLNESS: This is an 88-year-old female with history of Crohn disease, bed bound, Alzheimer's, bilateral hip and sacral ulcers, right eye blindness, urinary incontinence, recent hospitalization, now admitted with a fever, tachycardia, and dyspnea. REVIEW OF SYSTEMS: Reveals a 12-point review of systems performed. The patient's is at the bedside who helps with the history. Review of systems reveals no headaches, no blurred vision, and no chest pain. There is mild shortness of breath and cough. No abdominal pain. PAST MEDICAL HISTORY: Significant for Crohn disease, Alzheimer's, right eye blindness, urinary incontinence, recent hospitalization. The patient is bed bound. PAST SURGICAL HISTORY: Significant for colon resection. ALLERGIES: THE PATIENT HAS NO KNOWN ALLERGIES. MEDICATIONS: Reviewed. PHYSICAL EXAMINATION: VITAL SIGNS: The patient's temperature is 98, T-max is 100.2; respiratory rate of 24; heart rate of 107; blood pressure is 92/60, saturating at 92% with a BMI of 20. HEENT: Unremarkable. NECK: Supple. LUNGS: Decreased breath sounds. HEART: Normal S1 and S2. ABDOMEN: Soft, nontender. LABORATORY EXAMINATION: Reveals a white count of 20,000, hemoglobin of 12. Chemistries are noted. Troponin is elevated and LDH is elevated and alk phos is elevated. Urinalysis is unremarkable. Microbiology is pending. The patient had a chest x-ray, which showed infiltrates. ASSESSMENT AND PLAN: This is an 88-year-old female with Crohn disease and Alzheimer's and bilateral hip and sacral ulcers, right eye blindness, urinary incontinence, recent hospitalization with sepsis with bilateral healthcare-associated pneumonia in the face of acute congestive heart failure on top of chronic congestive heart failure and [id number] myocardial infarction. We treated the patient with meropenem and doxycycline. Pending blood cultures, urine cultures, sputum cultures, MRSA screen, procalcitonin, influenza testing. Overall prognosis is quite poor, should consider hospice setting. Leonid Lloyd MD [facility] # [id number]
[2018-11-10] MEDS: Albuterol-Ipratrop 3 mg / 0.5 (3 ml) UD IH SCH ×6 (00:44→19:26)
[2018-11-10] MEDS: Meropenem IV 1 gm in NS 1 GM/50 ML BAG IVPB SCH ×3 (05:35→22:32)
[2018-11-10 07:33] LABS: BASO # 0.03 K/mm3 (0.0-2.0); BASO % 0.2 % (0.0-3.0); EOS # 0.1 (0.0-0.7); EOS % 0.5 % (1.5-5.0); GRAN # 12.78 (1.4-6.5); GRAN % 81.7 % (50.0-68.0); HEMOGLOBIN 9.1 g/dL (12.0-16.0); LYMPH # 1.5 (1.2-3.4); LYMPH % 9.7 % (22.0-35.0); MEAN CELL VOLUME 86.7 fl (80.0-105.0); MEAN CORPUSCULAR HEMOGLOBIN 26.8 pg (25.0-35.0); MEAN PLATELET VOLUME 8.8 fl (7.0-11.0); MONO # 1.2 (0.1-0.6); MONO % 7.9 % (1.0-6.0); RBC 3.39 10^6/uL (3.5-6.1); RED CELL DISTRIBUTION WIDTH 18.1 % (11.5-14.5); WHITE BLOOD COUNT 15.6 10^3/uL (4.5-11.0)
[2018-11-10 07:43] LABS: ALB/GLOB RATIO 0.7 (1.1-1.8); ALBUMIN 2.2 g/dL (3.0-4.8); ALT/SGPT 26 U/L (7-56); AST/SGOT 21 U/L (14-36); BLOOD UREA NITROGEN 15 mg/dL (7-21); CALCIUM 8.5 mg/dL (8.4-10.5); GFR NON-AFRICAN AMERICAN > 60
[2018-11-10 10:59] LABS: IRON 28 ug/dL (45-180)
--- NOTE | 2018-11-10 11:05 | CP.PCM.PN ---
Subjective - Date & Time of Evaluation Date of Evaluation: 11/10/18 Time of Evaluation: 09:00 - Subjective Subjective: resting comfortably, taking PO, remains lethargic and confused, slight cough & congestion Objective - Vital Signs/Intake and Output Vital Signs (last 24 hours): Temp Pulse Resp BP Pulse Ox 97.8 F 105 H 20 112/76 99 11/10/18 06:00 11/10/18 06:00 11/10/18 06:00 11/10/18 06:00 11/10/18 06:00 Intake and Output: 11/10/18 11/10/18 06:59 18:59 Intake Total 400 Output Total 20 Balance 380 - Medications Medications: Current Medications Acetaminophen (Tylenol 650 Mg Supp) 650 mg RC Q6H PRN PRN Reason: Fever >100.4 F Last Admin: 11/09/18 17:43 Dose: 650 mg Albuterol/Ipratropium (Duoneb 3 Mg/0.5 Mg (3 Ml) Ud) 3 ml IH [id number] BIRD Last Admin: 11/10/18 08:44 Dose: 3 ml Aspirin (Ecotrin) 81 mg PO DAILY BIRD Enoxaparin Sodium (Lovenox) 40 mg SC DAILY BIRD; Protocol Furosemide (Lasix) 20 mg IVP DAILY BIRD Meropenem (Merrem Iv 1 Gm Premix) 1 gm in 50 mls @ 100 mls/hr IVPB Q8 BIRD; Protocol Stop: 11/18/18 22:01 Last Admin: 11/10/18 05:35 Dose: 100 mls/hr Doxycycline Hyclate 100 mg/ (Sodium Chloride) 100 mls @ 100 mls/hr IVPB Q12 BIRD; Protocol Last Admin: 11/09/18 21:31 Dose: 100 mls/hr - Labs Labs: 11/10/18 07:15 11/10/18 07:15 PT 14.1 SECONDS (9.4-12.5) H 11/07/18 16:30 INR 1.23 11/07/18 16:30 APTT 28.9 Seconds (25.1-36.5) 11/07/18 16:30 - Respiratory Exam Respiratory Exam: Rales, Rhonchi - Cardiovascular Exam Cardiovascular Exam: REGULAR RHYTHM, Murmur - GI/Abdominal Exam GI & Abdominal Exam: Soft, Normal Bowel Sounds - Extremities Exam Extremities Exam: Pedal Edema - Neurological Exam Neurological Exam: Altered Assessment and Plan (1) Myocardial infarction Status: Acute (2) Pneumonia Status: Acute (3) Tachycardia Status: Acute (4) Alzheimer disease Status: Chronic (5) Congestive heart failure Status: Acute - Assessment and Plan (Free Text) Plan: IV Lasix ordered, cardiology consult, pt DNR/DNI, prognosis remains terminal
[2018-11-10] MEDS: Enoxaparin 40 mg Syringe SC SCH (11:06)
[2018-11-10 11:09] LABS: % IRON SATURATION 19 % (20-55); TOTAL IRON BINDING CAPACITY 146 ug/dL (265-497)
[2018-11-10 11:19] LABS: FREE T4 1.44 ng/dL (0.78-2.19)
--- NOTE | 2018-11-10 11:34 | PN ---
DATE: 11/10/2018 SUBJECTIVE: The patient is in bed in no acute distress, nontoxic. Seen earlier today in 264, bed 2. PHYSICAL EXAMINATION: VITAL SIGNS: Temperature is 98, blood pressure is 112/70, T-max yesterday was 100.8, respiratory rate of 18, heart rate of 114. HEENT: Unremarkable. NECK: Supple. LUNGS: Have decreased breath sounds. HEART: Normal S1, S2. ABDOMEN: Soft, nontender. LABORATORY DATA: Laboratory examination reveals the blood cultures are negative. Urine cultures are negative. The hip cultures are pending; and review of orders reveals the patient to be on doxycycline, meropenem. Chest x-ray from this morning is pending. Chest x-ray from yesterday, the results are pending. ASSESSMENT AND PLAN: This is an 88-year-old female with Crohn's disease and Alzheimer's, bilateral hip and sacral ulcers, right eye blindness, urinary incontinence, recent hospitalization, admitted now with, 1. Sepsis, bilateral healthcare-associated pneumonia in phase of acute congestive heart failure on top of chronic congestive heart failure and awj-[id number] myocardial infarction, day #2 of meropenem and doxycycline thus far, and we will make further recommendations upon the final culture results and workup results. Examination of the left hip reveals chronic ulcer, no evidence of an active infection. The patient is on doxycycline, meropenem day #2. Leonid Lloyd MD
--- NOTE | 2018-11-10 11:45 | RAD ---
HISTORY: CHF COMPARISON: Chest x-ray performed 11/07/18 TECHNIQUE: Chest, one view. FINDINGS: Examination limited by habitus and patient obliquity. Patient's chin obscures evaluation of the right lung apex. LUNGS: Persistent mild to moderate pulmonary venous congestion. Biapical pleural thickening. PLEURA: No significant pleural effusion identified. No definite pneumothorax . CARDIOVASCULAR: Cardiomegaly. Ectatic aorta. Dense atherosclerotic calcifications. OSSEOUS STRUCTURES: Osseous demineralization. Degenerative changes. VISUALIZED UPPER ABDOMEN: Unremarkable. OTHER FINDINGS: None. IMPRESSION: Persistent mild to moderate pulmonary venous congestion. Cardiomegaly.
--- NOTE | 2018-11-10 12:18 | RAD ---
Date of service: 11/10/2018 HISTORY: Re-evaluate lung box. COMPARISON: 10/30/2018 and 11/09/2018 FINDINGS: LUNGS: Progressive consolidative changes both lower lobes. PLEURA: Increase in pleural effusions. CARDIOVASCULAR: Cardiomegaly. Atherosclerotic calcifications identified primarily aortic arch. OSSEOUS STRUCTURES: No significant abnormalities. VISUALIZED UPPER ABDOMEN: Normal. OTHER FINDINGS: None. IMPRESSION: Worsening infiltrates and pleural effusions right greater than left.
--- NOTE | 2018-11-10 13:00 | CP.PCM.PCO ---
Physician Communication Note - Physician Communication Note Physician Communication Note: TMAX 101.1, CHF, cardiology consult, elevated troponin, echo, wound cult
--- NOTE | 2018-11-10 14:40 | CARD ---
APPROVED REPORT Date of service: 11/10/2018 EXAM: Two-dimensional and M-mode echocardiogram with Doppler and color Doppler. INDICATION LV Function:SystolicDiastolic Congestive Heart Failure 2D DIMENSIONS Left Atrium (2D)3.1 (1.6-4.0cm)IVSd1.3 (0.7-1.1cm) LVDd3.3 (3.9-5.9cm)PWd1.1 (0.7-1.1cm) M-Mode DIMENSIONS Aortic Root2.40 (2.2-3.7cm)Aortic Cusp Exc.1.00 (1.5-2.0cm) Aortic Valve AoV Peak Qpwsczkb775.0cm/Nazia Peak GR.5mmHg Mitral Valve MV E Sqhykcdw77.0cm/sMV A Wmcpybtw51.8cm/sE/A ratio0.9 TDI E/Lateral E'0.0E/Medial E'0.0 Tricuspid Valve TR Peak Haefohzq696zy/sRAP [id number] Peak Gr.28mmHg [id number] LEFT VENTRICLE The left ventricle is normal size. There is mild concentric left ventricular hypertrophy. The systolic function is moderately to severely impaired. Aneurysmal [place] with Apical and septal hypokinesis Transmitral Doppler flow pattern is Grade I-abnormal relaxation pattern. No left ventricle thrombus noted on this study. RIGHT VENTRICLE The right ventricle is normal size. There is normal right ventricular wall thickness. The right ventricular systolic function is normal. ATRIA The left atrium size is normal. The right atrium size is normal. AORTIC VALVE The aortic valve is moderately sclerotic. No aortic regurgitation is present. There is no aortic valvular stenosis. MITRAL VALVE Mitral annular calcification is moderate. There is no mitral valve regurgitation noted. There is no mitral valve stenosis. TRICUSPID VALVE There is mild tricuspid regurgitation. There is mild pulmonary hypertension. GREAT VESSELS The aortic root is normal in size. PERICARDIAL EFFUSION There is no pericardial effusion. <Conclusion> There is mild concentric left ventricular hypertrophy. The systolic function is moderately to severely impaired. Aneurysmal [place] with Apical and septal hypokinesis Transmitral Doppler flow pattern is Grade I-abnormal relaxation pattern. No left ventricle thrombus noted on this study. There is mild tricuspid regurgitation. There is mild pulmonary hypertension.
[2018-11-10 17:51] LABS: FOLATE 10.3 ng/mL
[2018-11-11] MEDS: Albuterol-Ipratrop 3 mg / 0.5 (3 ml) UD IH SCH ×6 (00:16→23:36)
[2018-11-11] MEDS: Meropenem IV 1 gm in NS 1 GM/50 ML BAG IVPB SCH ×3 (06:28→22:13)
[2018-11-11] MEDS: Enoxaparin 40 mg Syringe SC SCH (10:23)
--- NOTE | 2018-11-11 11:32 | CP.PCM.CON ---
History of Present Illness - History of Present Illness History of Present Illness: No distress,eyes closed, does not respond to verbal command, unable to answer questions Reason for consultation: Cardiac evaluation for elevated troponin. History of Alzheimer's disease, chron's disease post bowel surgery 8 years ago Brief history of present illness: An 88 year old female who was brought to the ER from home due to shortness of breath. History of Alzheimer's disease, chron's disease post bowel surgery 8 years ago. Patient unable to answer questions. Chart reviewed. History obtained from chart. Patient is DNR/DNI. Consult was called for elevated Troponin of 0.28 on 11/07/18, troponin on 11/09 of 0.17. Non-STEMI. Seen and examined by me and Dr. Varela Review of Systems - Review of Systems All systems: reviewed and no additional remarkable complaints except Review of Systems: except from HPI Past Patient History - Infectious Disease Hx of Infectious Diseases: None - Tetanus Immunizations Tetanus Immunization: Unknown - Past Social History Smoking Status: Never Smoked - CARDIAC Hx Cardiac Disorders: No - PULMONARY Hx Respiratory Disorders: No - NEUROLOGICAL Hx Alzheimer's Disease: Yes (10 yrs) - HEENT Hx HEENT Problems: Yes (blind in right eye) - RENAL Hx Chronic Kidney Disease: No - ENDOCRINE/METABOLIC Hx Endocrine Disorders: No - HEMATOLOGICAL/ONCOLOGICAL Hx Blood Disorders: No - INTEGUMENTARY Hx Dermatological Problems: No - MUSCULOSKELETAL/RHEUMATOLOGICAL Hx Musculoskeletal Disorders: Yes - GASTROINTESTINAL Hx Crohn's Disease: Yes - GENITOURINARY/GYNECOLOGICAL Hx Incontinence: Yes - PSYCHIATRIC Hx Emotional Abuse: No Hx Physical Abuse: No Hx Substance Use: No - SURGICAL HISTORY Other/Comment: colon sx in 8 yrs ago - ANESTHESIA Hx Anesthesia: Yes Hx Anesthesia Reactions: No Hx Malignant Hyperthermia: No Meds Home Medications: Home Medication List Medication Instructions Recorded Confirmed Type RX: Albuterol/Ipratropium [Duoneb 3 ml IH [id number] #180 neb 11/11/18 Rx 3 mg/0.5 mg (3 ml) UD] RX: Amoxicillin/Clavulanate 1 tab PO Q12 #8 tab 11/11/18 Rx [Augmentin 875 MG-125 MG Tab] RX: Aspirin [Ecotrin] 81 mg PO DAILY #30 tabec 11/11/18 Rx RX: Carvedilol [Coreg] 3.125 mg PO BID #60 tab 11/11/18 Rx RX: Doxycycline Hyclate 100 mg IVPB Q12 #8 vial 11/11/18 Rx [Vibramycin] RX: Ferrous Sulfate [Feosol] 324 mg PO BID #60 ect 11/11/18 Rx RX: Furosemide [Lasix] 40 mg PO DAILY #30 tab 11/11/18 Rx RX: Lisinopril [Zestril] 2.5 mg PO DAILY #30 tab 11/11/18 Rx Allergies/Adverse Reactions: Allergies Allergy/AdvReac Type Severity Reaction Status Date / Time No Known Allergies Allergy Verified 10/30/18 12:22 - Medications Medications: Current Medications Acetaminophen (Tylenol 650 Mg Supp) 650 mg RC Q6H PRN PRN Reason: Fever >100.4 F Last Admin: 11/09/18 17:43 Dose: 650 mg Albuterol/Ipratropium (Duoneb 3 Mg/0.5 Mg (3 Ml) Ud) 3 ml IH [id number] [facility] Last Admin: 11/11/18 11:14 Dose: 3 ml Aspirin (Ecotrin) 81 mg PO DAILY [facility] Last Admin: 11/11/18 10:23 Dose: 81 mg Enoxaparin Sodium (Lovenox) 40 mg SC DAILY [facility]; Protocol Last Admin: 11/11/18 10:23 Dose: 40 mg Ferrous Sulfate (Feosol) 324 mg PO BID [facility] Last Admin: 11/11/18 10:23 Dose: 324 mg Furosemide (Lasix) 20 mg IVP DAILY [facility] Last Admin: 11/11/18 10:24 Dose: 20 mg Meropenem (Merrem Iv 1 Gm Premix) 1 gm in 50 mls @ 100 mls/hr IVPB Q8 BIRD; Protocol Stop: 11/18/18 22:01 Last Admin: 11/11/18 06:28 Dose: 100 mls/hr Doxycycline Hyclate 100 mg/ (Sodium Chloride) 100 mls @ 100 mls/hr IVPB Q12 BIRD; Protocol Last Admin: 11/11/18 10:24 Dose: 100 mls/hr Physical Exam - Constitutional Appears: Non-toxic, No Acute Distress - Head Exam Head Exam: NORMAL INSPECTION, NORMOCEPHALIC - ENT Exam ENT Exam: Mucous Membranes Dry - Respiratory Exam Respiratory Exam: Decreased Breath Sounds, NORMAL BREATHING PATTERN - Cardiovascular Exam Cardiovascular Exam: Tachycardia, +S1, +S2 Additional comments: Telemetry 110's ST - GI/Abdominal Exam GI & Abdominal Exam: Normal Bowel Sounds, Soft - Exam Additional comments: hsieh catheter - Neurological Exam Additional comments: non verbal, - Skin Skin Exam: Dry, Warm Additional comments: sacral, left heel, right hip skin breakdown on admission Results - Vital Signs Recent Vital Signs: Last Vital Signs Temp 98.2 F 11/11/18 06:00 Pulse 112 H 11/11/18 06:00 Resp 20 11/11/18 06:00 BP 116/69 11/11/18 10:24 Pulse Ox 95 11/11/18 06:00 - Labs Result Diagrams: 11/11/18 11:20 11/11/18 12:00 Labs: Laboratory Results - last 24 hr 11/10/18 11/10/18 11/10/18 10:40 10:40 10:40 Hemoglobin A1c 5.4 Ferritin 777.0 Vitamin B12 759 Folate 10.3 TSH 3rd Generation 4.93 H Assessment & Plan - Assessment and Plan (Free Text) Assessment: An 88 year old female who was brought to the ER from home due to shortness of breath. History of Alzheimer's disease, Chron's disease post bowel surgery 8 years ago. Patient unable to answer questions. Chart reviewed. History obtained from chart. Patient is DNR/DNI. Consult was called for elevated troponin of 0.17. Patient not in distress. Non-STEMI, troponin trending down.Cannot rule acute coronary syndrome but due to altered mental status and DNR/DNI, Patient not candidate for cardiac catheterization. Will treat patient medically.No previous cardiac work up in [facility]. 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 Recent Chest x ray showed worsening infiltrates and pleural effusion right greater than left. Plan: Patient non-verbal, lethargic,No distress Tachycardia Will start on Coreg 3.125 mg BID, Zestril 2.5 mg daily On ASA 81 mg daily, Lasix 20 mg daily Will increase Lasix to 40 mg IV Replenish potassium as needed Continue current treatment Continue current medications Will follow up Further recommendations during hospital course Plan and treatment discussed with Dr. Varela Thank you Dr. Patterson for the opportunity of taking care of Daisy Hansen - Date & Time Date: 11/11/18 Time: 06:45
[2018-11-11 11:37] LABS: BASO # 0.02 K/mm3 (0.0-2.0); BASO % 0.2 % (0.0-3.0); EOS # 0.1 (0.0-0.7); EOS % 0.8 % (1.5-5.0); GRAN # 10.83 (1.4-6.5); HEMOGLOBIN 10.2 g/dL (12.0-16.0); LYMPH # 1.3 (1.2-3.4); LYMPH % 9.7 % (22.0-35.0); MEAN CELL VOLUME 88.4 fl (80.0-105.0); MEAN CORPUSCULAR HEMOGLOBIN 26.8 pg (25.0-35.0); MEAN CORPUSCULAR HGB CONC 30.4 g/dl (31.0-37.0); MONO % 7.3 % (1.0-6.0); RBC 3.8 10^6/uL (3.5-6.1); RED CELL DISTRIBUTION WIDTH 18.5 % (11.5-14.5); WHITE BLOOD COUNT 13.2 10^3/uL (4.5-11.0)
--- NOTE | 2018-11-11 11:41 | CP.PCM.PN ---
Subjective - Date & Time of Evaluation Date of Evaluation: 11/11/18 Time of Evaluation: 09:00 - Subjective Subjective: resting comfortably, NAD Objective - Vital Signs/Intake and Output Vital Signs (last 24 hours): Temp Pulse Resp BP Pulse Ox 98.2 F 112 H 20 116/69 95 11/11/18 06:00 11/11/18 06:00 11/11/18 06:00 11/11/18 10:24 11/11/18 06:00 Intake and Output: 11/11/18 11/11/18 06:59 18:59 Intake Total 920 Output Total 900 Balance 20 - Medications Medications: Current Medications Acetaminophen (Tylenol 650 Mg Supp) 650 mg RC Q6H PRN PRN Reason: Fever >100.4 F Last Admin: 11/09/18 17:43 Dose: 650 mg Albuterol/Ipratropium (Duoneb 3 Mg/0.5 Mg (3 Ml) Ud) 3 ml IH [id number] [facility] Last Admin: 11/11/18 11:14 Dose: 3 ml Aspirin (Ecotrin) 81 mg PO DAILY BIRD Last Admin: 11/11/18 10:23 Dose: 81 mg Enoxaparin Sodium (Lovenox) 40 mg SC DAILY [facility]; Protocol Last Admin: 11/11/18 10:23 Dose: 40 mg Ferrous Sulfate (Feosol) 324 mg PO BID [facility] Last Admin: 11/11/18 10:23 Dose: 324 mg Furosemide (Lasix) 20 mg IVP DAILY [facility] Last Admin: 11/11/18 10:24 Dose: 20 mg Meropenem (Merrem Iv 1 Gm Premix) 1 gm in 50 mls @ 100 mls/hr IVPB Q8 BIRD; Protocol Stop: 11/18/18 22:01 Last Admin: 11/11/18 06:28 Dose: 100 mls/hr Doxycycline Hyclate 100 mg/ (Sodium Chloride) 100 mls @ 100 mls/hr IVPB Q12 [facility]; Protocol Last Admin: 11/11/18 10:24 Dose: 100 mls/hr - Labs Labs: 11/10/18 07:15 11/10/18 07:15 PT 14.1 SECONDS (9.4-12.5) H 11/07/18 16:30 INR 1.23 11/07/18 16:30 APTT 28.9 Seconds (25.1-36.5) 11/07/18 16:30 - Respiratory Exam Respiratory Exam: Rhonchi, NORMAL BREATHING PATTERN - Cardiovascular Exam Cardiovascular Exam: REGULAR RHYTHM - GI/Abdominal Exam GI & Abdominal Exam: Soft, Normal Bowel Sounds - Neurological Exam Neurological Exam: Altered - Skin Skin Exam: Dry, Warm Assessment and Plan (1) Myocardial infarction Status: Acute (2) Pneumonia Status: Acute (3) Tachycardia Status: Acute (4) Alzheimer disease Status: Chronic (5) Congestive heart failure Status: Acute - Assessment and Plan (Free Text) Plan: continue IV Abx/wound care/SW for DC planning, check labs in am
--- NOTE | 2018-11-11 12:09 | PN ---
DATE: 11/11/2018 SUBJECTIVE: The patient is in bed, in no acute distress, nontoxic. The patient seen earlier in 264. PHYSICAL EXAMINATION: VITAL SIGNS: Temperature is 98, blood pressure is 117/80, respiratory zheng 20, heart rate of 111. HEENT: Unremarkable. NECK: Supple. LUNGS: Decreased breath sounds. HEART: Normal S1, S2. ABDOMEN: Soft, nontender. LABORATORY DATA: White count of 15,600. Coagulation is noted. Chemistries reveals a BUN of 15, creatinine of 0.5. Procalcitonin is 1.15. Urinalysis is noted. Microbiology reveals hip culture is Enterococcus and Rosalba parapsilosis. Review of orders reveals the patient to be on doxycycline and meropenem. ASSESSMENT AND PLAN: This is an 88-year-old female with Crohn's disease, Alzheimer's, bilateral hip and sacral ulcers, right eye blindness and urinary incontinence, recent hospitalization. Sepsis, bilateral healthcare-associated pneumonia with acute congestive heart failure on top of chronic congestive heart failure and [id number] myocardial infarction, day #3 of meropenem and doxycycline and would complete 47 days of antibiotics. The patient did have a chest x-ray yesterday, progressive consolidative changes on both lower lobes is noted. Nurse practitioner, Jesika Schulte' communication report is reviewed. T-max is 101. Dr. Patterson's progress note from yesterday is reviewed. Overall prognosis is quite poor, should consider hospice setting for this patient who is end-stage. Leonid Lloyd MD
[2018-11-11 12:31] LABS: ALB/GLOB RATIO 0.7 (1.1-1.8); ALBUMIN 2.4 g/dL (3.0-4.8); ALT/SGPT 25 U/L (7-56); AST/SGOT 28 U/L (14-36); BLOOD UREA NITROGEN 22 mg/dL (7-21); CALCIUM 8.8 mg/dL (8.4-10.5); GFR NON-AFRICAN AMERICAN > 60
[2018-11-11 12:33] LABS: B-TYPE NATRIURETIC PEPTIDE 23300 pg/mL (0-450)
--- NOTE | 2018-11-11 12:46 | CP.PCM.PCO ---
Physician Communication Note - Physician Communication Note Physician Communication Note: re-eval and repeat labs in am. Patient for possible D/C home.
[2018-11-11] MEDS ORDERED: Potassium Chloride 40 mEq/30 ml LIQ UD PO ONE (15:57)
[2018-11-11] MEDS ORDERED: Potassium Chloride 20 mEq ER Tab PO ONE ×2 (16:41→22:00)
--- NOTE | 2018-11-11 19:44 | CON ---
DATE: 11/11/2018 REASON FOR CONSULTATION: Positive troponin. Admitted with advanced dementia with cough and congestion. This note is addition to dictated by the nurse practitioner, Tammi Daugherty. SUMMARY: In summary, this is an 88-year-old female with past medical history of advanced dementia, history of recent psoas abscess seen by Dr. Garrison, history of Crohn's disease 8 years ago, admitted with congestion and shortness of breath. The patient found to be troponin positive. PHYSICAL EXAMINATION: GENERAL: The patient is non-communicative, unable to give any history, but not in apparent distress. VITAL SIGNS: Stable. Blood pressure 116/69, but the patient is a little bit tachycardic. LABORATORY DATA: WBC is elevated at 13.2, hemoglobin 10.2, hematocrit 33.6, platelet count 446. Chemistry show sodium 136, potassium 3.7, . Troponin 0.7 as well as first troponin was 0.28 and BNP 1680. Repeat troponin trending down, but BNP is elevated. Chest x-ray today shows worsening infiltrates with pleural effusion. ASSESSMENT: The patient is an 88-year-old female with advanced dementia, do not resuscitate/do not intubate, admitted with congestion, pneumonia, infiltrate, borderline positive troponin, history of recent psoas abscess given history of Crohn's disease. The patient is non-communicative. RECOMMENDATIONS: Aggressive treatment. We will put Lovenox and we will put low-dose beta-turner as blood pressure and heart rate is tolerated. Continue baby aspirin. Overall, the patient has critical long-term prognosis guarded. We will follow with you. We will get echo to assess LV function. Than you Dr. Patterson for taking care of the patient. Further recommendations by hospital course and finding of the initial workup. Tien Varela MD
[2018-11-11] MEDS ORDERED: Amoxicillin-Clav 875-125 mg Tab PO SCH (22:00)
[2018-11-12] MEDS: Albuterol-Ipratrop 3 mg / 0.5 (3 ml) UD IH SCH (04:13)
[2018-11-12] MEDS: Meropenem IV 1 gm in NS 1 GM/50 ML BAG IVPB SCH ×3 (06:54→23:15)
--- NOTE | 2018-11-12 07:07 | CP.PCM.PN ---
Subjective - Date & Time of Evaluation Date of Evaluation: 11/12/18 Time of Evaluation: 06:25 - Subjective Subjective: No distress,eyes closed, does not respond to verbal command, unable to answer questions Reason for consultation and follow up: Cardiac evaluation for elevated troponin. History of Alzheimer's disease, chron's disease post bowel surgery 8 years ago, Seen and examined by me and Dr. Varela Objective - Vital Signs/Intake and Output Vital Signs (last 24 hours): Temp Pulse Resp BP Pulse Ox 97.5 F L 115 H 20 109/67 95 11/12/18 00:01 11/12/18 02:00 11/12/18 00:01 11/12/18 00:01 11/11/18 06:00 - Medications Medications: Current Medications Acetaminophen (Tylenol 650 Mg Supp) 650 mg RC Q6H PRN PRN Reason: Fever >100.4 F Last Admin: 11/09/18 17:43 Dose: 650 mg Albuterol/Ipratropium (Duoneb 3 Mg/0.5 Mg (3 Ml) Ud) 3 ml IH [id number] [facility] Last Admin: 11/12/18 04:13 Dose: 3 ml Amoxicillin/Clavulanate Potassium (Augmentin 875 Mg-125 Mg Tab) 1 tab PO Q12 [facility]; Protocol Aspirin (Ecotrin) 81 mg PO DAILY [facility] Last Admin: 11/11/18 10:23 Dose: 81 mg Carvedilol (Coreg) 3.125 mg PO BID [facility] Last Admin: 11/11/18 18:01 Dose: 3.125 mg Enoxaparin Sodium (Lovenox) 40 mg SC DAILY [facility]; Protocol Last Admin: 11/11/18 10:23 Dose: 40 mg Ferrous Sulfate (Feosol) 324 mg PO BID [facility] Last Admin: 11/11/18 18:01 Dose: 324 mg Furosemide (Lasix) 40 mg IVP DAILY [facility] Furosemide (Lasix) 40 mg PO DAILY [facility] Meropenem (Merrem Iv 1 Gm Premix) 1 gm in 50 mls @ 100 mls/hr IVPB Q8 [facility]; Protocol Stop: 11/18/18 22:01 Last Admin: 11/12/18 06:54 Dose: 100 mls/hr Doxycycline Hyclate 100 mg/ (Sodium Chloride) 100 mls @ 100 mls/hr IVPB Q12 [facility]; Protocol Last Admin: 11/11/18 22:14 Dose: 100 mls/hr Lisinopril (Zestril) 2.5 mg PO DAILY [facility] - Labs Labs: 11/11/18 11:20 11/11/18 12:00 PT 14.1 SECONDS (9.4-12.5) H 11/07/18 16:30 INR 1.23 11/07/18 16:30 APTT 28.9 Seconds (25.1-36.5) 11/07/18 16:30 - Constitutional Appears: Non-toxic, No Acute Distress - Head Exam Head Exam: NORMAL INSPECTION, NORMOCEPHALIC - Eye Exam Additional comments: eyes closed,non verbal - Respiratory Exam Respiratory Exam: Decreased Breath Sounds, NORMAL BREATHING PATTERN - Cardiovascular Exam Cardiovascular Exam: Tachycardia, +S1, +S2 Additional comments: Telemetry ST 110's - GI/Abdominal Exam GI & Abdominal Exam: Soft, Normal Bowel Sounds - Neurological Exam Additional comments: non verbal, grimace to pain stimuli - Skin Skin Exam: Normal Color, Warm Assessment and Plan - Assessment and Plan (Free Text) Assessment: An 88 year old female who was brought to the ER from home due to shortness of breath. History of Alzheimer's disease, Chron's disease post bowel surgery 8 ye ars ago. Patient unable to answer questions. Chart reviewed. History obtained from chart. Patient is DNR/DNI. Consult was called for elevated troponin of 0.17. Patient not in distress. Non-STEMI, troponin trending down.Cannot rule acute coronary syndrome but due to altered mental status and DNR/DNI, Patient not candidate for cardiac catheterization. Will treat patient medically.No previous cardiac work up in [facility]. 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 Recent Chest x ray showed worsening infiltrates and pleural effusion right greater than left. Tachycardia, started on Coreg. Plan: Non-verbal, eyes closed,No distress Tachycardia, 100-110's, will change Coreg to Lopressor Will change Albuterol to Xopenex to prevent further tachycardia On Coreg 3.125 mg BID, Zestril 2.5 mg daily ASA 81 mg daily, Lasix 40 mg daily Continue IV antibiotics as per ID. Continue current treatment Continue current medications Will follow up Plan and treatment discussed with Dr. Varela
[2018-11-12] MEDS: Levalbuterol 0.63 MG/3 ML Inhal Soln UD IH SCH ×3 (08:00→20:20)
[2018-11-12 08:06] LABS: BASO # 0.05 K/mm3 (0.0-2.0); BASO % 0.4 % (0.0-3.0); EOS # 0.1 (0.0-0.7); EOS % 0.8 % (1.5-5.0); GRAN # 9.57 (1.4-6.5); GRAN % 78.3 % (50.0-68.0); HEMOGLOBIN 9.6 g/dL (12.0-16.0); LYMPH # 1.5 (1.2-3.4); LYMPH % 12.2 % (22.0-35.0); MEAN CORPUSCULAR HEMOGLOBIN 26.8 pg (25.0-35.0); MEAN CORPUSCULAR HGB CONC 30.5 g/dl (31.0-37.0); MEAN PLATELET VOLUME 8.9 fl (7.0-11.0); MONO % 8.3 % (1.0-6.0); RBC 3.58 10^6/uL (3.5-6.1); RED CELL DISTRIBUTION WIDTH 18.6 % (11.5-14.5); WHITE BLOOD COUNT 12.2 10^3/uL (4.5-11.0)
[2018-11-12 08:28] LABS: ALB/GLOB RATIO 0.7 (1.1-1.8); ALBUMIN 2.3 g/dL (3.0-4.8); ALT/SGPT 34 U/L (7-56); AST/SGOT 64 U/L (14-36); BLOOD UREA NITROGEN 30 mg/dL (7-21); CALCIUM 8.7 mg/dL (8.4-10.5); GFR NON-AFRICAN AMERICAN > 60
[2018-11-12] MEDS: Enoxaparin 40 mg Syringe SC SCH (10:08)
--- NOTE | 2018-11-12 10:22 | PN ---
DATE: 11/12/2018 REASON FOR CONSULTATION AND FOLLOWUP: Cardiac evaluation, positive troponin, history of Alzheimer disease advanced, history of Crohn disease, unable to communicate. The patient is lying flat on bed, not in distress and nonverbal. This note is addition to dictated by the nurse practitioner, Tammi Daugherty. PHYSICAL EXAMINATION: VITAL SIGNS: Temperature low grade fever 99.8, heart rate 110 and blood pressure 95/57. HEENT: PERRLA intact. NECK: Supple. No carotid bruit. No thyromegaly. CHEST: Clear to auscultation. HEART: S1 and S2, regular. ABDOMEN: Soft. EXTREMITIES: Clubbing and cyanosis negative. PERTINENT LABORATORY DATA: Hemoglobin 9.6, hematocrit 31.5 and platelet count 440. Chemistry shows sodium 138, potassium 3.9, chloride 113 and carbon dioxide 23. The patient's maximum troponin is 0.28, 0.17. Possible [id number] myocardial infarction, but the patient is nonverbal, non-communicative, lying flat. Not a candidate to go to the systems testing laboratory technician. History of sepsis, history of recently drained sepsis. Recently, the patient had an echocardiography done that revealed impaired LV septal hypokinesis. No thrombus noted. Mild tricuspid regurgitation, mild pulmonary hypertension, systolic pressure 38 reported. No mitral regurgitation. RECOMMENDATION: Continue baby aspirin. Continue gentle diuretics. We will change to p.o. Lasix. The patient's blood pressure is borderline so we will decrease dose of metoprolol and change to 12.5 because of the tachycardia, 12.5 of Tenormin b.i.d. Yesterday, started Coreg, but the patient's heart rate is still up, so we will give limiting beta-turner, put 12.5 of atenolol to control the heart rate and Lasix changed to p.o. 40 from daily. Continue supportive care and no plan for the current lab because the patient is not a candidate for the systems testing laboratory technician. Conservative medical treatment. Continue Lovenox for DVT. Thank you Dr. Patterson for providing us the opportunity in taking care of the patient, Daisy Hansen. The patient may need nutritional PEG or NG tube, consider PEG or NG tube placement for nutritional support. Tien Varela MD
--- NOTE | 2018-11-12 11:41 | CP.PCM.PCO ---
Physician Communication Note - Physician Communication Note Physician Communication Note: re eval and labs in am. PNA, NSTEMI, CHF
--- NOTE | 2018-11-12 12:10 | RAD ---
Date of service: 11/12/2018 HISTORY: re eval COMPARISON: 11/10/2018 FINDINGS: LUNGS: There is slight improvement in the right lower lobe infiltrate and effusion. PLEURA: As above CARDIOVASCULAR: Aortic calcification and aortic tortuosity Normal cardiac size. Mild vascular congestion OSSEOUS STRUCTURES: No significant abnormalities. VISUALIZED UPPER ABDOMEN: Normal. OTHER FINDINGS: None. IMPRESSION: Vascular congestion. Improved right lower lobe infiltrate and effusion
--- NOTE | 2018-11-12 14:14 | CP.PCM.PN ---
Subjective - Date & Time of Evaluation Date of Evaluation: 11/12/18 Time of Evaluation: 10:00 - Subjective Subjective: lethargic, responsive to tactile stimuli Objective - Vital Signs/Intake and Output Vital Signs (last 24 hours): Temp Pulse Resp BP Pulse Ox 98 F 104 H 18 110/70 95 11/12/18 12:00 11/12/18 12:00 11/12/18 12:00 11/12/18 12:00 11/11/18 06:00 Intake and Output: 11/12/18 11/12/18 06:59 18:59 Intake Total 0 Output Total 200 Balance -200 - Medications Medications: Current Medications Acetaminophen (Tylenol 650 Mg Supp) 650 mg RC Q6H PRN PRN Reason: Fever >100.4 F Last Admin: 11/09/18 17:43 Dose: 650 mg Amoxicillin/Clavulanate Potassium (Augmentin 875 Mg-125 Mg Tab) 1 tab PO Q12 [facility]; Protocol Aspirin (Ecotrin) 81 mg PO DAILY [facility] Last Admin: 11/12/18 10:09 Dose: 81 mg Atenolol (Tenormin) 12.5 mg PO BID [facility] Last Admin: 11/12/18 10:11 Dose: Not Given Enoxaparin Sodium (Lovenox) 40 mg SC DAILY [facility]; Protocol Last Admin: 11/12/18 10:08 Dose: 40 mg Ferrous Sulfate (Feosol) 324 mg PO BID [facility] Last Admin: 11/12/18 10:09 Dose: 324 mg Furosemide (Lasix) 40 mg PO DAILY [facility] Last Admin: 11/12/18 10:09 Dose: 40 mg Meropenem (Merrem Iv 1 Gm Premix) 1 gm in 50 mls @ 100 mls/hr IVPB Q8 [facility]; Protocol Stop: 11/18/18 22:01 Last Admin: 11/12/18 06:54 Dose: 100 mls/hr Doxycycline Hyclate 100 mg/ (Sodium Chloride) 100 mls @ 100 mls/hr IVPB Q12 [facility]; Protocol Last Admin: 11/12/18 10:09 Dose: 100 mls/hr Levalbuterol HCl (Xopenex) 0.63 mg IH TIDRESP [facility] Last Admin: 11/12/18 13:30 Dose: 0.63 mg Lisinopril (Zestril) 2.5 mg PO DAILY [facility] Last Admin: 11/12/18 10:09 Dose: 2.5 mg - Labs Labs: 11/12/18 08:00 11/12/18 08:00 PT 14.1 SECONDS (9.4-12.5) H 11/07/18 16:30 INR 1.23 11/07/18 16:30 APTT 28.9 Seconds (25.1-36.5) 11/07/18 16:30 - Respiratory Exam Respiratory Exam: Decreased Breath Sounds, Rales, Rhonchi - Cardiovascular Exam Cardiovascular Exam: REGULAR RHYTHM - GI/Abdominal Exam GI & Abdominal Exam: Soft, Normal Bowel Sounds - Extremities Exam Extremities Exam: Pedal Edema - Neurological Exam Neurological Exam: Altered - Skin Skin Exam: Dry, Warm Assessment and Plan (1) Myocardial infarction Status: Acute (2) Pneumonia Status: Acute (3) Tachycardia Status: Acute (4) Alzheimer disease Status: Chronic (5) Congestive heart failure Status: Acute - Assessment and Plan (Free Text) Plan: prognosis very poor, family aware, continue IVAbx, supportive care, DNR/DNI
--- NOTE | 2018-11-12 15:19 | CP.PCM.PN ---
<Rebekah Nova - Last Filed: 11/12/18 15:20> Subjective - Date & Time of Evaluation Date of Evaluation: 11/12/18 Time of Evaluation: 08:00 - Subjective Subjective: ID progress note PGY-[address] Dunne Pt is minimally communicative, responsive to tactile stimuli. No in acute distress Objective - Vital Signs/Intake and Output Vital Signs (last 24 hours): Temp Pulse Resp BP Pulse Ox 98 F 104 H 18 110/70 95 11/12/18 12:00 11/12/18 12:00 11/12/18 12:00 11/12/18 12:00 11/11/18 06:00 Intake and Output: 11/12/18 11/12/18 06:59 18:59 Intake Total 0 Output Total 200 Balance -200 - Medications Medications: Current Medications Acetaminophen (Tylenol 650 Mg Supp) 650 mg RC Q6H PRN PRN Reason: Fever >100.4 F Last Admin: 11/09/18 17:43 Dose: 650 mg Amoxicillin/Clavulanate Potassium (Augmentin 875 Mg-125 Mg Tab) 1 tab PO Q12 [facility]; Protocol Aspirin (Ecotrin) 81 mg PO DAILY [facility] Last Admin: 11/12/18 10:09 Dose: 81 mg Atenolol (Tenormin) 12.5 mg PO BID [facility] Last Admin: 11/12/18 10:11 Dose: Not Given Enoxaparin Sodium (Lovenox) 40 mg SC DAILY [facility]; Protocol Last Admin: 11/12/18 10:08 Dose: 40 mg Ferrous Sulfate (Feosol) 324 mg PO BID [facility] Last Admin: 11/12/18 10:09 Dose: 324 mg Furosemide (Lasix) 40 mg PO DAILY [facility] Last Admin: 11/12/18 10:09 Dose: 40 mg Meropenem (Merrem Iv 1 Gm Premix) 1 gm in 50 mls @ 100 mls/hr IVPB Q8 [facility]; Pr otocol Stop: 11/18/18 22:01 Last Admin: 11/12/18 14:18 Dose: 100 mls/hr Doxycycline Hyclate 100 mg/ (Sodium Chloride) 100 mls @ 100 mls/hr IVPB Q12 [facility]; Protocol Last Admin: 11/12/18 10:09 Dose: 100 mls/hr Levalbuterol HCl (Xopenex) 0.63 mg IH TIDRESP [facility] Last Admin: 11/12/18 13:30 Dose: 0.63 mg Lisinopril (Zestril) 2.5 mg PO DAILY [facility] Last Admin: 11/12/18 10:09 Dose: 2.5 mg - Labs Labs: 11/12/18 08:00 11/12/18 08:00 PT 14.1 SECONDS (9.4-12.5) H 11/07/18 16:30 INR 1.23 11/07/18 16:30 APTT 28.9 Seconds (25.1-36.5) 11/07/18 16:30 - Constitutional Appears: No Acute Distress, Cachectic, Other (lethargic, responsive to tactile stimuli) - Head Exam Head Exam: ATRAUMATIC, NORMAL INSPECTION, NORMOCEPHALIC - Eye Exam Eye Exam: EOMI, Normal appearance, PERRL. absent: Scleral icterus Pupil Exam: NORMAL ACCOMODATION - ENT Exam ENT Exam: Mucous Membranes Moist - Neck Exam Additional comments: supple - Respiratory Exam Respiratory Exam: Clear to Ausculation Bilateral, Rhonchi (mild) - Cardiovascular Exam Cardiovascular Exam: REGULAR RHYTHM, +S1, +S2 - GI/Abdominal Exam GI & Abdominal Exam: Soft, Normal Bowel Sounds. absent: Tenderness - Extremities Exam Extremities Exam: absent: Pedal Edema - Neurological Exam Additional comments: lethargic, responsive to tactile stimuli - Psychiatric Exam Psychiatric exam: Flat Affect - Skin Skin Exam: Dry, Warm Assessment and Plan - Assessment and Plan (Free Text) Plan: 88 F with crohn's disease, advanced alzheimer, bilateral hip and sacral ulcers, R eye blindness, urinary incontinence for leukocytosis A: Sepsis, bilateral HAP with acute on chronic CHF and Nstemi P: Merem and doxycycline (day 4). May switch to augmentin and doxycycline when ready for oral meds. Wound culture likely contamination s/r/d/w Dr. Moore <Chiki Moore S - Last Filed: 11/12/18 15:49> Objective - Vital Signs/Intake and Output Vital Signs (last 24 hours): Temp Pulse Resp BP Pulse Ox 98 F 104 H 18 110/70 95 11/12/18 12:00 11/12/18 12:00 11/12/18 12:00 11/12/18 12:00 11/11/18 06:00 Intake and Output: 11/12/18 11/12/18 06:59 18:59 Intake Total 0 Output Total 200 Balance -200 - Medications Medications: Current Medications Acetaminophen (Tylenol 650 Mg Supp) 650 mg RC Q6H PRN PRN Reason: Fever >100.4 F Last Admin: 11/09/18 17:43 Dose: 650 mg Amoxicillin/Clavulanate Potassium (Augmentin 875 Mg-125 Mg Tab) 1 tab PO Q12 [facility]; Protocol Aspirin (Ecotrin) 81 mg PO DAILY [facility] Last Admin: 11/12/18 10:09 Dose: 81 mg Atenolol (Tenormin) 12.5 mg PO BID [facility] Last Admin: 11/12/18 10:11 Dose: Not Given Enoxaparin Sodium (Lovenox) 40 mg SC DAILY [facility]; Protocol Last Admin: 11/12/18 10:08 Dose: 40 mg Ferrous Sulfate (Feosol) 324 mg PO BID [facility] Last Admin: 11/12/18 10:09 Dose: 324 mg Furosemide (Lasix) 40 mg PO DAILY [facility] Last Admin: 11/12/18 10:09 Dose: 40 mg Meropenem (Merrem Iv 1 Gm Premix) 1 gm in 50 mls @ 100 mls/hr IVPB Q8 [facility]; Protocol Stop: 11/18/18 22:01 Last Admin: 11/12/18 14:18 Dose: 100 mls/hr Doxycycline Hyclate 100 mg/ (Sodium Chloride) 100 mls @ 100 mls/hr IVPB Q12 [facility]; Protocol Last Admin: 11/12/18 10:09 Dose: 100 mls/hr Levalbuterol HCl (Xopenex) 0.63 mg IH TIDRESP [facility] Last Admin: 11/12/18 13:30 Dose: 0.63 mg Lisinopril (Zestril) 2.5 mg PO DAILY [facility] Last Admin: 11/12/18 10:09 Dose: 2.5 mg - Labs Labs: 11/12/18 08:00 11/12/18 08:00 PT 14.1 SECONDS (9.4-12.5) H 11/07/18 16:30 INR 1.23 11/07/18 16:30 APTT 28.9 Seconds (25.1-36.5) 11/07/18 16:30 Assessment and Plan - Assessment and Plan (Free Text) Plan: Infectious diseases Attending Physician Attestation Patient seen and examined, discussed with medical coding specialist. I have reviewed the patient's history of present illness, past medical, social, personal and family histories, pertinent physical exam findings, course so far in this hospital admission, pertinent laboratory and imaging results. I agree with the above findings, assessment and plan. In addition, continue Doxycycline and Merrem day 4 for patient with sepsis due to bilateral HAP. Complete 4-7 days of therapy.
[2018-11-13] MEDS: Meropenem IV 1 gm in NS 1 GM/50 ML BAG IVPB SCH ×2 (06:44→14:40)
--- NOTE | 2018-11-13 07:22 | CP.PCM.PN ---
Subjective - Date & Time of Evaluation Date of Evaluation: 11/13/18 Time of Evaluation: 06:25 - Subjective Subjective: No distress,eyes closed, does not respond to verbal command, Reason for consultation and follow up: Cardiac evaluation for elevated troponin. History of Alzheimer's disease, chron's disease post bowel surgery 8 years ago, Seen and examined by me and Objective - Vital Signs/Intake and Output Vital Signs (last 24 hours): Temp Pulse Resp BP Pulse Ox 98.6 F 89 20 96/50 L 95 11/13/18 06:00 11/13/18 06:00 11/13/18 06:00 11/13/18 06:00 11/13/18 06:00 Intake and Output: 11/13/18 11/13/18 06:59 18:59 Intake Total 2618 Output Total 1650 Balance 968 - Medications Medications: Current Medications Acetaminophen (Tylenol 650 Mg Supp) 650 mg RC Q6H PRN PRN Reason: Fever >100.4 F Last Admin: 11/09/18 17:43 Dose: 650 mg Amoxicillin/Clavulanate Potassium (Augmentin 875 Mg-125 Mg Tab) 1 tab PO Q12 [facility]; Protocol Aspirin (Ecotrin) 81 mg PO DAILY [facility] Last Admin: 11/12/18 10:09 Dose: 81 mg Atenolol (Tenormin) 12.5 mg PO BID [facility] Last Admin: 11/12/18 17:13 Dose: 12.5 mg Enoxaparin Sodium (Lovenox) 40 mg SC DAILY [facility]; Protocol Last Admin: 11/12/18 10:08 Dose: 40 mg Ferrous Sulfate (Feosol) 324 mg PO BID [facility] Last Admin: 11/12/18 17:13 Dose: 324 mg Furosemide (Lasix) 40 mg PO DAILY [facility] Last Admin: 11/12/18 10:09 Dose: 40 mg Meropenem (Merrem Iv 1 Gm Premix) 1 gm in 50 mls @ 100 mls/hr IVPB Q8 [facility]; Protocol Stop: 11/18/18 22:01 Last Admin: 11/13/18 06:44 Dose: 100 mls/hr Levalbuterol HCl (Xopenex) 0.63 mg IH TIDRESP [facility] Last Admin: 11/12/18 20:20 Dose: 0.63 mg Lisinopril (Zestril) 2.5 mg PO DAILY [facility] Last Admin: 11/12/18 10:09 Dose: 2.5 mg - Labs Labs: 11/12/18 08:00 11/12/18 08:00 PT 14.1 SECONDS (9.4-12.5) H 11/07/18 16:30 INR 1.23 11/07/18 16:30 APTT 28.9 Seconds (25.1-36.5) 11/07/18 16:30 - Constitutional Appears: Non-toxic, No Acute Distress - Head Exam Head Exam: NORMAL INSPECTION, NORMOCEPHALIC - ENT Exam ENT Exam: Mucous Membranes Dry - Respiratory Exam Respiratory Exam: Decreased Breath Sounds, NORMAL BREATHING PATTERN - Cardiovascular Exam Cardiovascular Exam: REGULAR RHYTHM, +S1, +S2 - GI/Abdominal Exam GI & Abdominal Exam: Soft, Normal Bowel Sounds - Neurological Exam Additional comments: non verbal - Psychiatric Exam Psychiatric exam: Normal Affect, Normal Mood - Skin Skin Exam: Normal Color, Warm Assessment and Plan - Assessment and Plan (Free Text) Assessment: An 88 year old female who was brought to the ER from home due to shortness of breath. History of Alzheimer's disease, Chron's disease post bowel surgery 8 yea rs ago. Patient unable to answer questions. Chart reviewed. History obtained from chart. Patient is DNR/DNI. Consult was called for elevated troponin of 0.17. Patient not in distress. Non-STEMI, troponin trending down.Cannot rule acute coronary syndrome but due to altered mental status and DNR/DNI, Patient not candidate for cardiac catheterization. Will treat patient medically.No previous cardiac work up in [facility]. 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 Recent Chest x ray showed worsening infiltrates and pleural effusion right greater than left. Tachycardia, on Lopressor. Plan: Non-verbal, No distress Heart rate and blood pressure controlled DNR/DNI On Tenormin 12.5 mg BID, Zestril 2.5 mg daily, ASA 81 mg daily, Lasix 40 mg daily Continue IV antibiotics as per ID. Continue current treatment Continue current medications Nutritional support Consider PEG insertion Will follow up Plan and treatment discussed with Dr. Valente
[2018-11-13] MEDS: Levalbuterol 0.63 MG/3 ML Inhal Soln UD IH SCH ×3 (08:12→19:29)
[2018-11-13] MEDS: Enoxaparin 40 mg Syringe SC SCH (09:34)
--- NOTE | 2018-11-13 10:25 | CP.PCM.PN ---
Subjective - Date & Time of Evaluation Date of Evaluation: 11/13/18 Time of Evaluation: 10:00 - Subjective Subjective: resting comfortably, NAD Objective - Vital Signs/Intake and Output Vital Signs (last 24 hours): Temp Pulse Resp BP Pulse Ox 98.6 F 90 20 108/49 L 95 11/13/18 06:00 11/13/18 09:32 11/13/18 06:00 11/13/18 09:33 11/13/18 06:00 Intake and Output: 11/13/18 11/13/18 06:59 18:59 Intake Total 2618 Output Total 1650 Balance 968 - Medications Medications: Current Medications Acetaminophen (Tylenol 650 Mg Supp) 650 mg RC Q6H PRN PRN Reason: Fever >100.4 F Last Admin: 11/09/18 17:43 Dose: 650 mg Amoxicillin/Clavulanate Potassium (Augmentin 875 Mg-125 Mg Tab) 1 tab PO Q12 [facility]; Protocol Aspirin (Ecotrin) 81 mg PO DAILY [facility] Last Admin: 11/13/18 09:33 Dose: 81 mg Atenolol (Tenormin) 12.5 mg PO BID [facility] Last Admin: 11/13/18 09:32 Dose: 12.5 mg Enoxaparin Sodium (Lovenox) 40 mg SC DAILY [facility]; Protocol Last Admin: 11/13/18 09:34 Dose: 40 mg Ferrous Sulfate (Feosol) 324 mg PO BID [facility] Last Admin: 11/13/18 09:33 Dose: 324 mg Furosemide (Lasix) 40 mg PO DAILY [facility] Last Admin: 11/13/18 09:33 Dose: 40 mg Meropenem (Merrem Iv 1 Gm Premix) 1 gm in 50 mls @ 100 mls/hr IVPB Q8 [facility]; Protocol Stop: 11/18/18 22:01 Last Admin: 11/13/18 06:44 Dose: 100 mls/hr Levalbuterol HCl (Xopenex) 0.63 mg IH TIDRESP [facility] Last Admin: 11/13/18 08:12 Dose: 0.63 mg Lisinopril (Zestril) 2.5 mg PO DAILY [facility] Last Admin: 11/13/18 09:32 Dose: 2.5 mg - Labs Labs: 11/12/18 08:00 11/12/18 08:00 PT 14.1 SECONDS (9.4-12.5) H 11/07/18 16:30 INR 1.23 11/07/18 16:30 APTT 28.9 Seconds (25.1-36.5) 11/07/18 16:30 - Respiratory Exam Respiratory Exam: Rhonchi - Cardiovascular Exam Cardiovascular Exam: REGULAR RHYTHM - GI/Abdominal Exam GI & Abdominal Exam: Soft, Normal Bowel Sounds - Extremities Exam Extremities Exam: Pedal Edema - Neurological Exam Neurological Exam: Altered Assessment and Plan (1) Myocardial infarction Status: Acute (2) Pneumonia Status: Acute (3) Tachycardia Status: Acute (4) Alzheimer disease Status: Chronic (5) Congestive heart failure Status: Acute - Assessment and Plan (Free Text) Plan: continue supportive care, IV Abx/wound care, ID and cardio follow-up, pt DNR/DNI
--- NOTE | 2018-11-13 17:21 | PN ---
DATE: 11/13/2018 LOCATION: Room 264, bed 2. REASON FOR CONSULTATION AND FOLLOWUP: Positive troponin, cardiac evaluation, history of Alzheimer disease, advanced history of Crohn disease, unable to communicate. SUBJECTIVE: The patient is lying flat in bed without any respiratory distress. No chest pain, no shortness of breath. PHYSICAL EXAMINATION: VITAL SIGNS: Blood pressure is 94/50, respirations 18, pulse 90, temperature 97.1. HEENT: Head is normocephalic. Eyes, pupils normal. Conjunctivae are normal. Nose and throat normal. NECK: JVP low. Carotids equal. THORAX: AP diameter normal. LUNGS: Clear. CARDIOVASCULAR: S1, S2. ABDOMEN: Soft. EXTREMITIES: No edema feet. LABORATORY DATA: Troponin 0.28 to 0.17. DIAGNOSES: Possibility of non-ST segment elevation myocardial infarction. The patient is nonverbal, noncommunicative, lying flat without any cardiac symptoms. History of sepsis, history of Alzheimer disease, Crohn disease. PLAN: The patient is not a candidate for any invasive cardiac intervention at this point due to her general condition and we will treat her medically. Aspirin 81 daily, 324 b.i.d., furosemide 40 daily, Lovenox 40 daily, meropenem 1 g IV every 8 hours, Xopenex 10 mL 2.5 daily. We will follow. Tien Valente MD
--- NOTE | 2018-11-13 21:26 | PN ---
DATE: 11/13/2018 SUBJECTIVE: The patient is in bed, seen earlier today in room 264, bed 2. No fevers, no chills. OBJECTIVE: VITAL SIGNS: On exam, temperature is 97, blood pressure is 94/50, respiratory rate of 18, heart rate of 93. HEENT: Unremarkable. NECK: Supple. LUNGS: Have decreased breath sounds HEART: Normal S1, S2. ABDOMEN: Soft, nontender. LABORATORY DATA: Examination reveals a white count of 12,200. Chemistries reveals a BUN of 30, creatinine of 0.5. BNP reveals the patient's BNP is 23,000. Urinalysis is noted. Microbiology reveals yeast in the urine. The hip culture is Enterococcus. Review of orders reveals the patient to be on p.o. Augmentin and IV meropenem. ASSESSMENT AND PLAN: This is an 88-year-old female who was seen earlier this morning, minimally communicative and overall in poor condition with Crohn's disease, advanced Alzheimer's, bilateral hip and sacral ulcers, right eye blindness, urinary incontinence, sepsis, bilateral healthcare-associated pneumonia, [id number] congestive heart failure with [id number] myocardial infarction, day #5 of doxycycline, meropenem, switch to p.o. doxycycline and p.o. Augmentin to complete therapy in 4 to 7 days. Overall prognosis is quite poor. White count appears to be improving, and Dr. Patterson's progress note from today is reviewed. We will discontinue the meropenem. Leonid Lloyd MD
[2018-11-14] MEDS ORDERED: Sodium Chloride 0.9% 1,000 ML IV STA (00:59)
--- NOTE | 2018-11-14 08:03 | CP.PCM.PN ---
Subjective - Date & Time of Evaluation Date of Evaluation: 11/14/18 Time of Evaluation: 06:15 - Subjective Subjective: No distress, non-verbal ,does not respond to verbal command, Reason for consultation and follow up: Cardiac evaluation for elevated troponin. History of Alzheimer's disease, chron's disease post bowel surgery 8 years ago, Seen and examined by me and Objective - Vital Signs/Intake and Output Vital Signs (last 24 hours): Temp Pulse Resp BP Pulse Ox 98.9 F 88 19 98/56 L 97 11/14/18 06:00 11/14/18 06:00 11/14/18 06:00 11/14/18 06:00 11/14/18 06:00 Intake and Output: 11/14/18 11/14/18 06:59 18:59 Intake Total 375 360 Output Total 100 Balance 375 260 - Medications Medications: Current Medications Acetaminophen (Tylenol 650 Mg Supp) 650 mg RC Q6H PRN PRN Reason: Fever >100.4 F Last Admin: 11/09/18 17:43 Dose: 650 mg Amoxicillin/Clavulanate Potassium (Augmentin 875 Mg-125 Mg Tab) 1 tab PO Q12 [facility]; Protocol Aspirin (Ecotrin) 81 mg PO DAILY [facility] Last Admin: 11/13/18 09:33 Dose: 81 mg Atenolol (Tenormin) 12.5 mg PO BID [facility] Last Admin: 11/13/18 18:37 Dose: Not Given Enoxaparin Sodium (Lovenox) 40 mg SC DAILY [facility]; Protocol Last Admin: 11/13/18 09:34 Dose: 40 mg Ferrous Sulfate (Feosol) 324 mg PO BID [facility] Last Admin: 11/13/18 18:36 Dose: 324 mg Furosemide (Lasix) 40 mg PO DAILY [facility] Last Admin: 11/13/18 09:33 Dose: 40 mg Sodium Chloride (Sodium Chloride 0.9%) 1,000 mls @ 75 mls/hr IV .[id number] STA Stop: 11/14/18 14:18 Last Admin: 11/14/18 01:10 Dose: 75 mls/hr Levalbuterol HCl (Xopenex) 0.63 mg IH TIDRESP [facility] Last Admin: 11/13/18 19:29 Dose: 0.63 mg Lisinopril (Zestril) 2.5 mg PO DAILY [facility] Last Admin: 11/13/18 09:32 Dose: 2.5 mg - Labs Labs: 11/12/18 08:00 11/12/18 08:00 PT 14.1 SECONDS (9.4-12.5) H 11/07/18 16:30 INR 1.23 11/07/18 16:30 APTT 28.9 Seconds (25.1-36.5) 11/07/18 16:30 - Constitutional Appears: Non-toxic, No Acute Distress - Head Exam Head Exam: NORMAL INSPECTION, NORMOCEPHALIC - Respiratory Exam Respiratory Exam: Decreased Breath Sounds, NORMAL BREATHING PATTERN - Cardiovascular Exam Cardiovascular Exam: +S1, +S2 - GI/Abdominal Exam GI & Abdominal Exam: Soft, Normal Bowel Sounds - Neurological Exam Additional comments: non verbal - Skin Skin Exam: Normal Color, Warm Assessment and Plan - Assessment and Plan (Free Text) Assessment: An 88 year old female who was brought to the ER from home due to shortness of breath. History of Alzheimer's disease, Chron's disease post bowel surgery 8 years ago. Patient unable to answer questions. Chart reviewed. History obtained from chart. Patient is DNR/DNI. Consult was called for elevated troponin of 0.17. Patient not in distress. Non-STEMI, troponin trending down.Cannot rule acute coronary syndrome but due to altered mental status and DNR/DNI, Patient not candidate for cardiac catheterization. Will treat patient medically.[place] [facility] [facility] 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 Recent Chest x ray showed worsening infiltrates and pleural effusion right greater than left. Plan: DNR/DNI Non-verbal, No distress Heart rate 90's-100's/min Will increase Tenormin Blood pressure controlled On Tenormin 12.5 mg BID, Zestril 2.5 mg daily, ASA 81 mg daily, Lasix 40 mg daily Continue IV antibiotics as per ID. Continue current treatment Continue current medications Nutritional support Consider PEG insertion Will follow up Plan and treatment discussed with Dr. Valente
[2018-11-14] MEDS: Levalbuterol 0.63 MG/3 ML Inhal Soln UD IH SCH ×4 (08:06→19:52)
--- NOTE | 2018-11-14 10:41 | PN ---
DATE: 11/14/2018 SUBJECTIVE: The patient is in bed in no acute distress, nontoxic. PHYSICAL EXAMINATION: VITAL SIGNS: Temperature is 98, blood pressure is 100/60, respiratory rate of 18, heart rate of 88. HEENT: Unremarkable. NECK: Supple. LUNGS: Have decreased breath sounds. HEART: Normal S1, S2. ABDOMEN: Soft, nontender. LABORATORY EXAMINATION: Reveals a white count is down to 12,200, hemoglobin of 9, platelets of 440. BUN of 30, creatinine of 0.5. BNP is noted. Urinalysis is noted. Microbiology is reviewed. Review of orders reveals the patient to be on p.o. Augmentin. ASSESSMENT AND PLAN: This is an 88-year-old female who was seen earlier, minimally able to communicate, overall poor condition in a patient with Crohn's disease, Alzheimer's and bilateral hip and sacral ulcer, right eye blindness, urinary incontinence and sepsis with bilateral healthcare-associated pneumonia, [id number] congestive heart failure with [id number] myocardial infarction, had completed doxycycline and meropenem 5 days now. On p.o. Augmentin, would complete a total of 7 days and today is day #5 of 7 days. Overall prognosis quite poor, should consider a hospice setting. Leonid Lloyd MD
[2018-11-14] MEDS: Enoxaparin 40 mg Syringe SC SCH (10:55)
--- NOTE | 2018-11-14 11:19 | CP.PCM.PN ---
Subjective - Date & Time of Evaluation Date of Evaluation: 11/14/18 Time of Evaluation: 11:00 - Subjective Subjective: resting comfortably, NAD Objective - Vital Signs/Intake and Output Vital Signs (last 24 hours): Temp Pulse Resp BP Pulse Ox 98.9 F 88 19 98/56 L 97 11/14/18 06:00 11/14/18 06:00 11/14/18 06:00 11/14/18 06:00 11/14/18 06:00 Intake and Output: 11/14/18 11/14/18 06:59 18:59 Intake Total 375 360 Output Total 100 Balance 375 260 - Medications Medications: Current Medications Acetaminophen (Tylenol 650 Mg Supp) 650 mg RC Q6H PRN PRN Reason: Fever >100.4 F Last Admin: 11/09/18 17:43 Dose: 650 mg Amoxicillin/Clavulanate Potassium (Augmentin 875 Mg-125 Mg Tab) 1 tab PO Q12 [facility]; Protocol Aspirin (Ecotrin) 81 mg PO DAILY [facility] Last Admin: 11/13/18 09:33 Dose: 81 mg Atenolol (Tenormin) 25 mg PO Q12 [facility] Enoxaparin Sodium (Lovenox) 40 mg SC DAILY [facility]; Protocol Last Admin: 11/13/18 09:34 Dose: 40 mg Ferrous Sulfate (Feosol) 324 mg PO BID [facility] Last Admin: 11/13/18 18:36 Dose: 324 mg Furosemide (Lasix) 40 mg PO DAILY [facility] Last Admin: 11/13/18 09:33 Dose: 40 mg Sodium Chloride (Sodium Chloride 0.9%) 1,000 mls @ 75 mls/hr IV .[id number] STA Stop: 11/14/18 14:18 Last Admin: 11/14/18 01:10 Dose: 75 mls/hr Levalbuterol HCl (Xopenex) 0.63 mg IH TIDRESP [facility] Last Admin: 11/14/18 08:06 Dose: 0.63 mg Lisinopril (Zestril) 2.5 mg PO DAILY [facility] Last Admin: 11/13/18 09:32 Dose: 2.5 mg - Labs Labs: 11/12/18 08:00 11/12/18 08:00 PT 14.1 SECONDS (9.4-12.5) H 01/06/19 16:30 INR 1.23 11/07/18 16:30 APTT 28.9 Seconds (25.1-36.5) 11/07/18 16:30 - Respiratory Exam Respiratory Exam: Rales, Rhonchi - Cardiovascular Exam Cardiovascular Exam: REGULAR RHYTHM - GI/Abdominal Exam GI & Abdominal Exam: Soft, Normal Bowel Sounds - Extremities Exam Extremities Exam: Normal Inspection - Neurological Exam Neurological Exam: Altered - Skin Skin Exam: Dry, Warm Assessment and Plan (1) Myocardial infarction Status: Acute (2) Pneumonia Status: Acute (3) Tachycardia Status: Acute (4) Alzheimer disease Status: Chronic (5) Congestive heart failure Assessment & Plan: continue supportive care, on PO Abx, DC to home in am Status: Acute
--- NOTE | 2018-11-14 17:29 | PN ---
DATE: 11/14/2018 LOCATION: Room 264, bed 2. REASON FOR CONSULTATION: Elevated troponin, possible CHF, pneumonic infiltrate, Alzheimer's disease. SUBJECTIVE: The patient was admitted with shortness of breath and the patient found to have troponin of 0.17, suggestive of non-STEMI; however, the patient is confused, Alzheimer's disease, is not a candidate for interventional therapy, so we decided to treat her medically. The patient already had echo done in 07/2018, which showed moderate to severely impaired systolic function ____ with apical and septal hypokinesis, grade I abnormal relaxation pattern. No thrombus, mild tricuspid regurgitation, mild pulmonary hypertension. This echo was done on 07/2018, read by Dr. Hooks. Chest x-ray on 11/12/2018 showed slight improvement in the right lower lobe infiltrate, mild ____ congestion. PLAN: We will continue Zestril 2.5 mg daily, aspirin 81 mg daily, Lasix 40 mg daily, Tenormin 12.5 b.i.d. and we will follow with you. Tien Valente MD
[2018-11-15 06:23] VITALS: O2SAT 93
[2018-11-15] MEDS: Levalbuterol 0.63 MG/3 ML Inhal Soln UD IH SCH (07:22)
[2018-11-15 11:53] VITALS: BP 99/61; PULSE 91; RESP 18; TEMP 98.4
--- NOTE | 2018-11-15 15:09 | PN ---
DATE: 11/15/2018 REASON FOR CONSULTATION AND FOLLOWUP: Elevated troponin, congestive heart failure, pneumonia, Alzheimer's disease. SUBJECTIVE: The patient is lying with 30-degree head up left lateral position, noncommunicating. PHYSICAL EXAMINATION: VITAL SIGNS: Temperature afebrile. Heart rate 91, blood pressure 99/61. HEENT: PERRLA. Extraocular muscles intact. NECK: Supple. No carotid bruit. No thyromegaly. CHEST: Clear to auscultation. HEART: S1 and S2, regular. ABDOMEN: Soft. EXTREMITIES: Clubbing and cyanosis negative. LABORATORY DATA: Blood workup: WBC 12.2, hemoglobin 9.6, hematocrit 31.5, platelet count 440. Chemistry shows sodium 139, potassium 3.9, chloride 113, carbon dioxide 23, anion gap of 8, BUN of 30, creatinine 0.5. IMPRESSION: An 88-year-old female with advanced dementia, with do not resuscitate/do not intubate, admitted with congestion, pneumonia, infiltrate, borderline positive troponin, history of recent psoas abscess, and non-communicative. 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 The patient being treated medically. RECOMMENDATIONS: Continue beta-turner. Continue lisinopril. Continue atenolol. Overall the patient's condition is critical, long-term prognosis is guarded. Code status DNR. We will follow with you. Continue supportive care. Thank you Dr. Zepeda for providing us the opportunity in taking care of the patient, Daisy Hansen. Tien Varela MD
--- NOTE | 2018-11-15 17:04 | CP.PCM.PN ---
Subjective - Date & Time of Evaluation Date of Evaluation: 11/15/18 Time of Evaluation: 10:15 - Subjective Subjective: Not in distress, no fevers this morning. Not short of breath at rest. Objective - Vital Signs/Intake and Output Vital Signs (last 24 hours): Temp Pulse Resp BP Pulse Ox 98 F 86 18 90/50 L 97 11/14/18 12:00 11/14/18 18:00 11/14/18 12:00 11/14/18 12:00 11/14/18 06:00 Intake and Output: 11/14/18 11/15/18 18:59 06:59 Intake Total 1095 Output Total 200 Balance 895 - Medications Medications: Current Medications Acetaminophen (Tylenol 650 Mg Supp) 650 mg RC Q6H PRN PRN Reason: Fever >100.4 F Last Admin: 11/09/18 17:43 Dose: 650 mg Amoxicillin/Clavulanate Potassium (Augmentin 875 Mg-125 Mg Tab) 1 tab PO Q12 [facility]; Protocol Aspirin (Ecotrin) 81 mg PO DAILY [facility] Last Admin: 11/14/18 10:55 Dose: 81 mg Atenolol (Tenormin) 25 mg PO Q12 [facility] Last Admin: 11/14/18 10:55 Dose: 25 mg Enoxaparin Sodium (Lovenox) 40 mg SC DAILY [facility]; Protocol Last Admin: 11/14/18 10:55 Dose: 40 mg Ferrous Sulfate (Feosol) 324 mg PO BID [facility] Last Admin: 11/14/18 17:40 Dose: 324 mg Furosemide (Lasix) 40 mg PO DAILY [facility] Last Admin: 11/14/18 10:55 Dose: 40 mg Levalbuterol HCl (Xopenex) 0.63 mg IH TIDRESP [facility] Last Admin: 11/14/18 19:52 Dose: 0.63 mg Lisinopril (Zestril) 2.5 mg PO DAILY [facility] Last Admin: 11/14/18 10:55 Dose: 2.5 mg - Labs Labs: 11/12/18 08:00 11/12/18 08:00 PT 14.1 SECONDS (9.4-12.5) H 11/07/18 16:30 INR 1.23 11/07/18 16:30 APTT 28.9 Seconds (25.1-36.5) 11/07/18 16:30 - Constitutional Appears: Chronically Ill - Head Exam Head Exam: NORMAL INSPECTION - Respiratory Exam Respiratory Exam: Decreased Breath Sounds - Cardiovascular Exam Cardiovascular Exam: +S1, +S2 - GI/Abdominal Exam GI & Abdominal Exam: Soft. absent: Tenderness Assessment and Plan - Assessment and Plan (Free Text) Plan: Assessment sepsis due to bilateral HAP acute on chronic ChF with acute NSTEMI Crohn's disease Alzheimer's disease bilateral decubitus ulcers in the hips and decubitus sacral ulcer right eye blindness Plan continue Augmentin day 6 to complete 7 days of therapy overall prognosis is poor
--- NOTE | 2018-11-15 18:56 | DS ---
HOSPITAL COURSE: The patient is an 88-year-old female admitted through the emergency department on 11/07/2018 with increasing shortness of breath and respiratory congestion. The patient has a history of advanced end-stage Alzheimer's dementia and had been previously discharged with a diagnosis of infected pressure ulcers and possible urosepsis. The patient was started empirically on IV antibiotics, seen by Infectious Disease, Dr. Lloyd. She also was noted to have an elevated troponin and BNP levels and was seen in consultation by Cardiology, Dr. Varela due to the patient's advanced dementia and no intervention was contemplated. The patient is now discharged to home in terminal condition under the care of her daughter who was aware of her prognosis. PHYSICAL EXAMINATION: VITAL SIGNS: Blood pressure 99/61, temperature 98.4, pulse 91, and respiratory rate 18. LUNGS: Show few scattered crepitations, rales at the bases bilaterally. HEART: Regular rate and rhythm. ABDOMEN: Soft and nontender. Bowel sounds are normoactive. EXTREMITIES: Without cyanosis or clubbing. There is trace bipedal edema. NEUROLOGIC: The patient is lethargic, confused, and not easily arousable. SKIN: Warm and dry with stage III to IV pressure ulcers involving the sacrum and hip as well as heels bilaterally. IMPRESSION: 1. Coronary artery disease/cfb-VI-[id number] elevation myocardial infarction. 2. Congestive heart failure. 3. Pneumonia. 4. Advanced dementia. PLAN: The patient will be discharged to home in terminal condition on the following medications; Augmentin suspension 500 mg every 8 hours for 5-7 days, Lasix 40 mg daily, Tenormin 25 mg every 12 hours, and lisinopril 2.5 mg daily. She will be maintained on regular pureed diet as tolerated. Activity essentially the patient is bed bound. She will be sent home for terminal care by the family. ANGEL Cheng MD
== END 2018-11-15 18:00 | disposition home or self-care (01) | DRG 871 ==
LOC: ED 15:52 → ERH 18:18 → 2RNO 11-08 02:49
PROVIDERS: ADMIT Internal Medicine; ATTEND Internal Medicine
PROC: 3E0F7GC Introduction of Other Therapeutic Substance into Respiratory Tract, Via Natural or Artificial Opening (ICD-10-PCS; principal; 2018-11-08)
DX: A41.9 Sepsis, unspecified organism (principal); L89.153 Pressure ulcer of sacral region, stage 3; L89.214 Pressure ulcer of right hip, stage 4; J18.9 Pneumonia, unspecified organism; L89.224 Pressure ulcer of left hip, stage 4; I21.4 Non-ST elevation (NSTEMI) myocardial infarction; K50.90 Crohn's disease, unspecified, without complications; R09.02 Hypoxemia; I50.9 Heart failure, unspecified; F02.80 Dementia in other diseases classified elsewhere, unspecified severity, without behavioral disturbance, psychotic disturbance, mood disturbance, and anxiety; G30.9 Alzheimer's disease, unspecified; I25.10 Atherosclerotic heart disease of native coronary artery without angina pectoris; I11.0 Hypertensive heart disease with heart failure; L89.622 Pressure ulcer of left heel, stage 2; L89.619 Pressure ulcer of right heel, unspecified stage; Z66 Do not resuscitate